=== PATIENT | male | born 1950 | race Caucasian/White ===

== ENCOUNTER 2019-08-20 08:38 | Outpatient (CLI) | payer MEDICARE, SELFPAY ==
--- NOTE | 2019-08-26 11:03 | SLEEP_ITS ---
Home sleep test. DATE OF STUDY: 08/20/2019 REASON FOR THE STUDY: Hypersomnia, nighttime shortness of breath. HISTORY: This patient is 68-year-old male, 5 feet 11 inches tall, weighing 200 pounds with a body mass index of 27.9. He has a history of shortness of breath with COPD. He also has snoring and occasionally it is loud enough that others complain about it. He rarely awakens from sleep short of breath, rarely awakens with heartburn or belching. He occasionally has trouble sleeping if he has a cold. He does not gasp often for breath at night. He occasionally has breathing problems witnessed by others. He does not sweat excessively at night. He occasionally notices his heart pounding or beating irregularly at night. He frequently falls asleep during the day, never involuntarily and never while driving. He does not have loss of muscle tone with strong emotion and does not feel paralyzed on waking or falling asleep. He does not have vivid dreamlike scenes upon awakening or falling asleep. He is never afraid to go to sleep. He occasionally has nightmares, frequently remembers his dreams. He occasionally has racing thoughts, sadness, depression and anxiety. He never has muscular tension or notices parts of his body jerking. He frequently kicks at night. He does not have crawly achy feelings in the legs or leg pain at night. He does not have morning jaw pain and does not grind his teeth. He frequently is bothered by pain during the day, occasionally is awakened by pain at night, never wakes up feeling stiff in the morning. He occasionally wakes up with sore achy muscles, constantly wakes up with pain in the neck and spine. He has memory problems, insomnia, concentration difficulties, bowel disturbances, problems with alcohol and he has chronic headaches. Bedtime is 10:30 p.m., taking 5 to 10 minutes to fall asleep, waking 3 times at night on average for 3 minutes to go urinate. He wakes in the morning at 6:30 a.m. Weekend schedule is the same. He does take naps. A short nap may be refreshing. He is drowsy in the morning for half an hour. He feels better in the morning compared to other times of day. MEDICAL COMORBIDITIES: Hyperlipidemia, hip replacement, hypertension, hepatitis C, cardiac stents. MEDICATIONS: 1. Anoro Ellipta 62.5/25 one puff daily. 2. Aspirin 81 mg a day. 3. Atorvastatin 20 mg a day. 4. Metoprolol succinate 25 mg daily. 5. Nitroglycerin 0.4 mg sublingual p.r.n. chest pain. HABITS: Never smoked tobacco. Caffeine, 3 cups a day. Alcohol, 2-3 per day. No recreational drugs. DESCRIPTION OF THE STUDY: On the [place] Sleepiness Scale, his score is 6. This was conducted as an unattended type 3 portable home sleep test using 4-channel monitoring including respiratory effort channel, snoring channel, oxygen saturation channel, and heart rate channel. Duration of the study was 8 hours 15 minutes. This study was scored using [facility] guidelines. The apnea-hypopnea index is 18. Oxygen desaturation index is 15.2. Lowest desaturation is 79%. The mean saturation is 92%. The patient had 57 apneas. The majority of the apneas, 72% or 41 apneas were obstructive, 28% or 16 were central. He had 88 hypopneas, 466 snoring events, and 126 desaturations with 14 minutes spent below 3% saturation. The patient had a heart rate between 45 and 91. He had 3% of his study suggesting central sleep episodes. IMPRESSION: 1. This home sleep test shows evidence of at least moderate sleep-disordered breathing with 3% of the study showing Armand-Rizzo respirations. The patient has a history of cardiac stents. We need to check his echocardiogram to assure that his EF is greater than 45% in the event that he is titrated with CPAP and needs to proceed to BiPAP or
== END 2019-08-20 08:39 | disposition home or self-care (01) ==
LOC: ANHCSM 08:39
PROVIDERS: PCP Family Medicine; Visit Provider Internal Medicine Critical Care Medicine
DX: G47.10 Hypersomnia, unspecified (principal)
CPT/HCPCS: 95806

== ENCOUNTER 2020-03-23 01:34 | Outpatient (CLI) | payer MEDICARE, SELFPAY ==
[2020-03-23 17:42] LABS: SARS-CoV-2 RNA PCR Negative
== END 2020-03-23 01:35 | disposition home or self-care (01) ==
LOC: ANHCOVIDDT 01:34
PROVIDERS: PCP Family Medicine; Visit Provider Specialist
DX: Z01.812 Encounter for preprocedural laboratory examination (principal); Z20.828 Contact with and (suspected) exposure to other viral communicable diseases
CPT/HCPCS: 87635; C9803; U0003

== ENCOUNTER 2020-03-25 02:14 | Day surgery (SDC) | payer MEDICARE, SELFPAY ==
[2020-03-24 14:29] VITALS: BMI 27.0
[2020-03-25] VITALS (8 sets, daily range): BP systolic 127–157; BP diastolic 61–92; PULSE 44–70; RESP 14–18; TEMP 36.6–36.8; O2SAT 99–100
[2020-03-25 09:07] LABS: Basophils Percent Auto 0.6 % (0.2-1.2); Eosinophils Absolute Auto 0.3 K/mm3 (0-0.3); Eosinophils Percent Auto 4.3 % (0-4.4); Hematocrit 50.1 % (42.0-52.0); Hemoglobin 16.8 g/dL (14.0-18.0); Immature Granulocyte Absolute 0.01 K/mm3 (0.00-0.031); Immature Granulocyte Percent A 0.1 % (0-0.5); Lymphocytes Absolute Auto 1.66 K/mm3 (0.9-3.2); Lymphocytes Percent Auto 24.6 % (18.3-44.2); Mean Corpuscular HGB Conc 33.5 g/dl (32-36); Mean Corpuscular Hemoglobin 30.3 pg (26-34); Mean Corpuscular Volume 90.4 fl (80-100); Mean Platelet Volume 8.9 fl (7.4-10.4); Monocytes Absolute Auto 0.6 K/mm3 (0.1-0.6); Monocytes Percent Auto 8.3 % (2.6-8.5); Neutrophils Absolute Auto 4.2 K/mm3 (1.3-6.7); Neutrophils Percent Auto 62.1 % (45.5-73.1); Nucleated Red Blood Cells Perc 0.4 % (0.0-0.2); Platelet Count Result 230 k/mm3 (150-375); Red Blood Count 5.54 M/mm3 (4.6-6.20); Red Cell Distribution Width 12.4 % (11.5-14.5); White Blood Count 6.7 K/mm3 (4.5-10.0)
[2020-03-25 09:17] LABS: Prothrombin Time 12.4 Seconds (11.1-14.7)
[2020-03-25 09:18] LABS: Anion Gap 8 mmol/L (8-16); Blood Urea Nitrogen 16 mg/dL (9-20); Calcium 9.6 mg/dL (8.4-10.2); Carbon Dioxide 33 mmol/L (22-30); Chloride 99 mmol/L (98-107); Estimated CRCL calculation 70 ml/min; Estimated Glomerular Filt Rate > 60; Glucose 108 mg/dL (75-110); Potassium 4.5 mmol/L (3.4-5.0); Sodium 140 mmol/L (137-145)
--- NOTE | 2020-03-25 09:27 | WPDMODSED ---
Moderate Sedation Note-Pt Data Patient Data Diagnosis: coronary artery disease with previous IN and PCI symptoms compatible with recurrent exertional angina Present Complaint: exertional dyspnea and chest pain Procedure to be performed/Plan: follow-up left heart catheterization Allergies Allergy/AdvReac Type Severity Reaction Status Date / Time No Known Drug Allergies Allergy Unknown Unknown Verified 03/24/20 14:26 Home Medications Medication Instructions Recorded Confirmed Type aspirin 81 mg tablet,delayed 81 mg PO DAILY 06/06/19 03/24/20 History release atorvastatin 20 mg tablet 20 mg PO DAILY 06/06/19 03/24/20 History cephalexin 500 mg capsule 500 mg PO Q12H 06/06/19 03/24/20 History metoprolol succinate 25 mg 25 mg PO DAILY 06/06/19 03/24/20 History tablet,extended release 24 hr nitroglycerin 0.4 mg sublingual 0.4 mg SUBLINGUAL Q5M PRN 06/06/19 03/24/20 History tablet multivitamin,tx-minerals 1 tablet PO DAILY 09/13/19 03/24/20 History Current Medications: Active Medications Sodium Chloride (Normal Saline Iv) 500 mls @ 100 mls/hr IV CONT .Q5H ANJANA Sedation/Anesthesia: No previous sedation/anesthesia problems (including family history). [facility] Past Medical History Medical History (Updated 09/13/19 @ 14:49 by Savannah Mcdonald MD) Bronchitis CAD (coronary artery disease) Cervical radiculopathy Chest discomfort COPD (chronic obstructive pulmonary disease) Hyperlipidemia Hypertension Myelopathy concurrent with and due to spinal stenosis of cervical region Surgical History Surgical History History of coronary artery stent placement Status post total hip replacement, bilateral Family History Family History Father Family history of malignant neoplasm Mother Family history of malignant neoplasm of brain Sibling Family history of throat cancer Social History Social History Social History: Heavy marijuana & cocaine smoking, none x last 12 year. Cigars, 0-1 usually, rarely 2 cigars/day. Never smoked cigarettes. cigars x 30+ years Smoking status: Current some day smoker Tobacco type: cigars Second hand tobacco smoke exposure: Yes Alcohol intake: current Substance use: never Substance use type: former substance user Living arrangements: with family Gender identity (if verbalized by the patient): Male Mod Sed Physical Exam Physical Exam Pre Procedural Exam: Normal: Appearance, Neck, Throat, Airway, Heart Size, Heart Rate, Heart Rhythm, Neuro Exam and Extremities and Variation: Lungs ( breath sounds clear but diminished in both lung louis) Hours since solid foods: 12 Hours since liquid intake: 12 Internal Medicine - PN: Obj Da Meds/Results Medications: Active Medications Generic Name Dose Route Start Last Admin Trade Name Freq PRN Reason Stop Dose Admin Sodium Chloride 500 mls @ 100 mls/hr 03/25/20 05:55 Normal Saline Iv IV CONT .Q5H ANJANA Labs CBC & Chem 7: 03/25/20 09:00 03/25/20 09:00 Labs: Laboratory Results - last 24 hr 03/25/20 03/25/20 03/25/20 09:00 09:00 09:00 WBC 6.7 RBC 5.54 Hgb 16.8 Hct 50.1 MCV 90.4 MCH 30.3 MCHC 33.5 RDW 12.4 Plt Count 230 MPV 8.9 Immature Gran % (Auto) 0.1 Neut % (Auto) 62.1 Lymph % (Auto) 24.6 Sutter % (Auto) 8.3 Eos % (Auto) 4.3 Baso % (Auto) 0.6 Lymph # (Auto) 1.66 Sutter # (Auto) 0.6 Eos # (Auto) 0.3 Baso # (Auto) 0.0 Abs Immat Gran (auto) 0.01 Absolute Neuts (auto) 4.2 Absolute Nucleated RBC 0.0 Nucleated RBC % 0.4 H PT 12.4 INR 1.0 Sodium 140 Potassium 4.5 Chloride 99 Carbon Dioxide 33 H Anion Gap 8 BUN 16 Creatinine 0.90 Estim Creat Clear Calc 70 Estimated GFR > 60 Glucose 108 Calci
--- NOTE | 2020-03-25 10:39 | WPDCARDPROC ---
Cardiac Cath Procedure Note Date of procedure:: 03/25/20 Performing physician:: Lucas Gutierres MD Indication:: symptoms of chest pain with both typical and atypical features of angina previous PCI to the proximal LAD and distal RCA abnormal nuclear stress test Brief clinical history:: this is a 69-year-old man who underwent interventional revascularization of his proximal LAD in the remote past as well as in the distal RCA. He has been doing well in recent years but now is reporting symptoms of increasing frequency of chest pain but the features of the pain are somewhat atypical of angina. A nuclear stress test demonstrated a largely fixed inferior defect as well as a reversible defect at the base of the anterior wall. Procedure Procedure performed:: Left heart catheterization with left ventriculography, coronary angiography Angio-Seal to right femoral artery Sedation/Medication given:: fentanyl 50 mg Versed 2 mg case start time 10:16 a.m. case end time 10:34 a.m. sedation provided by Camila Wan RN, trained observer Access site:: right femoral artery Estimated blood loss:: 10-15 cc Procedure note:: patient was brought to the cardiac catheterization lab in the postabsorptive state triangle prepped and draped in the usual fashion. Anesthesia was provided with 1% lidocaine infiltrated locally. Using the modified Seldinger technique the right common femoral artery was punctured and a 5 [place]i vascular sheath was placed. After this left heart catheterization carried out a 5 [place]i angled pigtail catheter was used to document left-sided hemodynamics and inject the g in the AO projection. After this I engaged injected left coronary artery using a standard 5 [place]i FL4 catheter. The right coronary was engaged and injected using a standard 5 [place] JR4 catheter. The cine angiograms were then and the case was terminated. An angiogram was done of the femoral artery through the sheath after which a 6 [place] Angio-Seal device was deployed at the puncture site with a good hemostatic result. The procedure was well tolerated he left the rn cardiac cath with no evidence of a groin hematoma and no evident complications. Findings:: Hemodynamics: Central aortic pressure is 128/49 left ventricle 128/0 end diastolic pressure of 8. There is no systolic gradient on pullback across the aortic valve. The left ventricle is normal in size all segments contract appropriately the global ejection fraction is 50-55% with no regional wall motion abnormalities. The left main coronary artery is nicely patent the LAD is medium caliber artery extending down to around the apex. There is visible stent material in the ostial/proximal segment of the LAD which is nicely patent with no loss of lumen. There is a tortuous segment in the mid LAD where there is a atherosclerotic plaque of about 50-60% stenosis. Angiographically this appears to be identical to which appears to be in 2016. Distal to this the remainder of the LAD is free of significant lesions. The circumflex is a very small caliber artery in this patient angiographically without significant disease there is mild luminal irregularity in the circumflex but it is once again extremely small vessel. The right coronary artery is moderate caliber and dominant to the posterior circulation. The mid RCA and distal RCA are mildly tortuous. After the tortuosity there is a stent the obviously visible in the 3rd portion of the right coronary which remains widely patent with no restenosis or loss of lumen. The RPDA and RPL branches are free of significant stenosis. Conclusion:: 1. Coronary artery disease with right coronary dominant circulation 2. previously deployed stents in the proximal/ostial segment of the LAD and in the 3rd portion of the RCA remains nicely patent 3. moderate lesion in the mid LAD does not appear to be flow-limiting and angiographically is unchanged in its appearance comp
--- NOTE | 2020-03-25 13:38 | SUR.PHASEII ---
Pt. and spouse given post-procedure discharge education. Pt. and spouse verbalize understanding of discharge education. R Angioseal site noted to be free of signs of bleeding and hematoma upon discharge. Pt. escorted to private vehicle via wheelchair.
== END 2020-03-25 13:47 | disposition home or self-care (01) ==
PROVIDERS: PCP Family Medicine; Visit Provider Specialist
PROC: 4A023N7 Measurement of Cardiac Sampling and Pressure, Left Heart, Percutaneous Approach (ICD-10-PCS; CPT 93452; principal; 2020-03-25 10:00)
DX: I25.10 Atherosclerotic heart disease of native coronary artery without angina pectoris (principal); R94.39 Abnormal result of other cardiovascular function study; R07.9 Chest pain, unspecified; Z95.5 Presence of coronary angioplasty implant and graft; I10 Essential (primary) hypertension; E78.5 Hyperlipidemia, unspecified; J44.9 Chronic obstructive pulmonary disease, unspecified; M48.02 Spinal stenosis, cervical region; G99.2 Myelopathy in diseases classified elsewhere; Z79.82 Long term (current) use of aspirin; F17.290 Nicotine dependence, other tobacco product, uncomplicated
CPT/HCPCS: 36415; 80048; 85025; 85610; 93458; C1887; C1894; G0269; J1644; J2250; J3010; J7040

== ENCOUNTER 2020-08-31 10:08 | Outpatient (CLI) | payer MEDICARE, SELFPAY ==
--- NOTE | ~2020-08-31 | CT_ITS ---
EXAMINATION: CT lung screening DATE: 08/31/2020 10:24 INDICATION: Personal history of nicotine dependence TECHNIQUE: Computed tomography (CT) of the chest was performed without intravenous contrast. The dose -length product was 112.41 mGy-cm. Automated exposure control and iterative reconstruction technique were employed. COMPARISON: CT dated 06/18/2019 and 01/01/2014 FINDINGS: Mild atherosclerosis. No thoracic lymphadenopathy. Heart size normal. No significant pleura l or pericardial effusion. The upper abdomen is unremarkable. Calcified granuloma left upper lobe. 4 mm left upper lobe nodule, image 72, unchanged. 3 mm right upper lobe nodule, unchanged. Additional s maller nodules are present in the upper lobes. Calcified granuloma right lower lobe. Mild emphysema. No pneumothorax. Mild thoracic spondylosis. IMPRESSION: 1. Lung-RADS category 2: Benign appearance or behavior. Continue annual screening with noncontrast lo w-dose chest CT in 12 months. Reviewed, dictated and finalized at location B. IMPRESSION: 1. Lung-RADS category 2: Benign appearance or behavior. Continue annual screeni ng with noncontrast low-dose chest CT in 12 months.
== END 2020-08-31 10:09 | disposition home or self-care (01) ==
PROVIDERS: PCP Physician Assistant; Visit Provider Nurse Practitioner Family
DX: Z12.2 Encounter for screening for malignant neoplasm of respiratory organs (principal); Z87.891 Personal history of nicotine dependence
CPT/HCPCS: 71271

== ENCOUNTER → 2020-09-01 00:38 | Outpatient (CLI) | payer MEDICARE, SELFPAY ==
[2020-09-01 18:31] LABS: SARS-CoV-2 RNA PCR Negative
== END ==
PROVIDERS: PCP Physician Assistant; Visit Provider Internal Medicine Critical Care Medicine
DX: Z01.812 Encounter for preprocedural laboratory examination (principal); Z20.822 Contact with and (suspected) exposure to COVID-19
CPT/HCPCS: C9803; U0003; U0005

== ENCOUNTER 2020-09-03 06:57 | Outpatient (CLI) | payer MEDICARE, SELFPAY ==
--- NOTE | 2020-09-14 15:01 | WPDSLEEPSTUD ---
Sleep Study Date of Study: 09/03/20 Ordering Provider: Gustavo Castellanos APRN Interpreting Physician: Jaki Bourgeois MD Sleep Study Type: CPAP Titration Height: 1.8 m Weight: 87.997 kg Body Mass Index: 27.0 Neck Circumference (inches): 16 [place]: 3 Reason for Sleep Study 08/20/2019 home sleep test with obstructive sleep apnea; AHI 18, 3% Armand-Rizzo epochs, 79% lowest saturation, 72% obstructive apneas, 28% central apneas so 16 of 57 apneas, = 5.04 central index on HST baseline. This is consistent with obstructive and central sleep apnea. Sleep History Cristi Rasmussen Sr is 69-year-old male with shortness of breath and COPD. He also has snoring and occasionally it is loud enough that others complain about it. He rarely awakens from sleep short of breath, rarely awakens with heartburn or belching. He occasionally has trouble sleeping if he has a cold. He does not gasp often for breath at night. He occasionally has breathing problems witnessed by others. He does not sweat excessively at night. He occasionally notices his heart pounding or beating irregularly at night. He frequently falls asleep during the day, never involuntarily and never while driving. He does not have loss of muscle tone with strong emotion and does not feel paralyzed on waking or falling asleep. He does not have vivid dreamlike scenes upon awakening or falling asleep. He is never afraid to go to sleep. He occasionally has nightmares, frequently remembers his dreams. He occasionally has racing thoughts, sadness, depression and anxiety. He never has muscular tension or notices parts of his body jerking. He frequently kicks at night. He does not have crawly achy feelings in the legs or leg pain at night. He does not have morning jaw pain and does not grind his teeth. He frequently is bothered by pain during the day, occasionally is awakened by pain at night, never wakes up feeling stiff in the morning. He occasionally wakes up with sore achy muscles, constantly wakes up with pain in the neck and spine. He has memory problems, insomnia, concentration difficulties, bowel disturbances, problems with alcohol and he has chronic headaches. Bedtime is 10:30 p.m., taking 5 to 10 minutes to fall asleep, waking 3 times at night on average for 3 minutes to go urinate. He wakes in the morning at 6:30 a.m. Weekend schedule is the same. He does take naps. A short nap may be refreshing. He is drowsy in the morning for half an hour. He feels better in the morning compared to other times of day. Habits: Never smoked tobacco. Caffeine, 3 cups a day. Alcohol, 2-3 per day. No recreational drugs. [facility] Past Medical History Medical History Bronchitis CAD (coronary artery disease) Cervical radiculopathy Chest discomfort COPD (chronic obstructive pulmonary disease) Hyperlipidemia Hypertension Myelopathy concurrent with and due to spinal stenosis of cervical region Tobacco abuse Surgical History Surgical History History of coronary artery stent placement Status post total hip replacement, bilateral Family History Family History Father Family history of malignant neoplasm Mother Family history of malignant neoplasm of brain Sibling Family history of throat cancer Social History Social History Social History: Heavy marijuana & cocaine smoking, none x last 13 year. Cigars, 0-1 usually, rarely 2 cigars/day. Never smoked cigarettes. cigars x 30+ years Smoking status: Former smoker Tobacco type: cigars Second hand tobacco smoke exposure: Yes Alcohol intake: current Substance use: never Substance use type: former substance user Gender identity (if verbalized by the patient): Male Spiritual care concerns: No Agree to blood produ
[2020-09-21 12:59] VITALS: BMI 27.0
== END 2020-09-03 06:58 | disposition home or self-care (01) ==
LOC: ANHCSM 06:57
PROVIDERS: PCP Physician Assistant; Visit Provider Nurse Practitioner Family
DX: G47.33 Obstructive sleep apnea (adult) (pediatric) (principal)
CPT/HCPCS: 95811

== ENCOUNTER 2021-02-11 07:58 | Outpatient (CLI) | payer MEDICARE, SELFPAY ==
--- NOTE | ~2021-02-11 | CT_ITS ---
EXAMINATION: CT abdomen pelvis wo/w con EXAM DATE: 02/11/2021 08:50 INDICATION: Gross hematuria. Dysuria, bilateral flank pain, pelvic pain. TECHNIQUE: Spiral CT of the abdomen and pelvis was performed without contrast. The patient was then injected with small bolus intravenous Omnipaque 350, followed by delay of approximately 10 minutes to allow collecting system to opacify. A post contrast scan abdomen and pelvis was performed during inj ection of remaining contrast. A total of 130 cc intravenous contrast was administered. The dose-kodak th product (DLP) for this examination was 402.26 mGy-cm. The exposure was tailored according to melchor ent size (auto mA exposure control), and iterative reconstruction (ASIR) was used as additional dose reduction technique. Comparison is made to prior examination from 05/16/2018. FINDINGS: There is approximately 4 cm segment of the right ureter proximally which has irregularity i n the column of contrast, but no shouldering. Possible 3 mm intraluminal filling defect along the wal l on image 98. Recommend retrograde pyelogram. Some limitations of lower aspect of bladder due to willow ateral hip replacements causing artifact. There is no hydronephrosis or nephrolithiasis. There is a 4 cm cyst right kidney midpole anterior cortex. The kidneys enhance symmetrically. There are no jazmyn picious renal lesions. The bladder is unremarkable. The prostate is unremarkable. The liver, spleen, adrenal glands and pancreas are unremarkable. Gallbladder is unremarkable. No bi liary obstruction. There is no retroperitoneal or pelvic lymphadenopathy. Bilateral inguinal herni a repairs. The appendix is normal. The stomach and small bowel are unremarkable. There is expected amount of c olonic stool. No free intraperitoneal gas. The heart is normal in size. There are no pericardial or pleural effusions. The lung bases are unremarkable. There is left iliac bone island unchanged. Hip replacements. IMPRESSION: 1. Some irregularity to the right ureter proximally, could be phasic but recommend retrograde pyelog ana maría for possible transitional cell cancer. Reviewed, dictated and finalized at location A. IMPRESSION: 1. Some irregularity to the right ureter proximally, could be phasic but recom mend retrograde pyelogram for possible transitional cell cancer.
[2021-02-11 08:26] LABS: Estimated Glomerular Filt Rate > 60
== END 2021-02-11 07:59 | disposition home or self-care (01) ==
PROVIDERS: PCP Physician Assistant
DX: R31.0 Gross hematuria (principal)
CPT/HCPCS: 74178; Q9967

== ENCOUNTER 2021-05-20 08:19 | Outpatient (CLI) | payer MEDICARE, SELFPAY ==
[2021-05-20 09:39] LABS: Alanine Aminotransferase 15 U/L (4-50); Albumin Level 4.5 g/dL (3.5-5.1); Alkaline Phosphatase 92 U/L (38-126); Anion Gap 5 mmol/L (8-16); Aspartate Amino Transferase 22 U/L (17-59); Bilirubin,Total 0.7 mg/dL (0.2-1.3); Blood Urea Nitrogen 14 mg/dL (9-20); Calcium 9.1 mg/dL (8.4-10.2); Carbon Dioxide 30 mmol/L (22-30); Chloride 102 mmol/L (98-107); Cholesterol 119 mg/dL (0-200); Estimated Glomerular Filt Rate > 60; Glucose 115 mg/dL (65-110); HDL Direct 45 mg/dL; Potassium 4.1 mmol/L (3.4-5.0); Sodium 137 mmol/L (137-145); Triglycerides 76 mg/dL (<150)
[2021-05-20 09:50] LABS: LDL Cholesterol Direct 50 mg/dL
[2021-05-20 10:09] LABS: Prostate Specific Antigen 1.9 ng/mL (< OR = 4.0)
== END 2021-05-20 08:20 | disposition home or self-care (01) ==
PROVIDERS: PCP Family Medicine; Visit Provider Physician Assistant
DX: E78.5 Hyperlipidemia, unspecified (principal); I10 Essential (primary) hypertension; Z12.5 Encounter for screening for malignant neoplasm of prostate
CPT/HCPCS: 36415; 80053; 80061; 84153; G0103

== ENCOUNTER → 2021-07-06 09:39 | Outpatient (CLI) | payer MEDICARE, SELFPAY ==
[2021-07-06 19:06] LABS: SARS-CoV-2 RNA PCR Positive
== END ==
PROVIDERS: PCP Family Medicine; Visit Provider Physician Assistant
DX: U07.1 COVID-19 (principal)
CPT/HCPCS: C9803; U0003; U0005

== ENCOUNTER → 2021-09-06 12:04 | Outpatient (CLI) | payer MEDICARE, SELFPAY ==
--- NOTE | ~2021-09-06 | CT_ITS ---
EXAMINATION: CT lung screening EXAM DATE: 09/06/2021 12:23 INDICATION: Z87.891 - Personal history of nicotine dependence. TECHNIQUE: Spiral low dose CT of the chest without contrast. Axial, coronal and sagittal images were reviewed. The dose-length product (DLP) for this examination was 98.16 mGy-cm. The exposure was ta ilored according to patient size (auto mA exposure control), and iterative reconstruction (ASIR) was used as additional dose reduction technique. Comparison is made to prior examination from 08/31/2020. FINDINGS: Several calcified granulomas Tracheobronchial tree is patent. There is no mediastinal, hilar or axillary lymphadenopathy. There are no pleural or pericardial effusions. There is no pne umothorax. Heart normal in size. There is moderate coronary arterial calcification, arterial scle rosis. There is mild to moderate emphysema and hyperinflation. Upper abdomen is unremarkable. There is thoracic spondylosis without osteoblastic or osteolytic lesions identified. IMPRESSION: Lung-RADS category 1, negative (<1%chance of malignancy); recommend continued LDCT screen ing in 1 year. Reviewed, dictated and finalized at location A. IMPRESSION: Lung-RADS category 1, negative (<1%chance of malignancy); recommend continued LDCT screening in 1 year.
== END ==
PROVIDERS: PCP Physician Assistant; Visit Provider Physician Assistant
DX: Z87.891 Personal history of nicotine dependence (principal)
CPT/HCPCS: 71271

== ENCOUNTER 2021-09-28 01:28 | Day surgery (SDC) | payer MEDICARE, SELFPAY ==
[2021-09-15 13:38] VITALS: BMI 27.3
[2021-09-28 10:05] VITALS: BP 133/86; PULSE 70; RESP 18; TEMP 36.1; O2SAT 99; BMI 26.9
[2021-09-28] MEDS: LACTATED RINGERS 1,000 ML 150 ML IV CONT (10:15)
--- NOTE | 2021-09-28 10:22 | WPDHPUPDATE1 ---
History and Physical Update Update Date/Time: 09/28/21 10:22 History and Physical has been reviewed, including an updated exam of the patient. There are NO changes in the patient's condition. Risks, benefits, and alternatives have been discussed and questions answered. Patient agrees to proceed with procedure.
--- NOTE | 2021-09-28 11:03 | WPDANESEPPF ---
Anes - Initial Pre Proc Eval Procedure: Operation Date: 09/28/21 11:00 Proposed Procedures p Colonoscopy - Ronald Gutierrez MD Date/Time: 09/28/21 11:03 Surgeon: Ronald Gutierrez MD Pre Op Diagnosis: Abdominal pain, change in bowel habits Patient Data Age: 70 Gender: M Height: 1.8 m Weight: 87.7 kg Last Vital Signs Temp 97 F L 09/28/21 10:05 Pulse 70 09/28/21 10:05 Resp 18 09/28/21 10:05 BP 133/86 09/28/21 10:05 Pulse Ox 99 09/28/21 10:05 Allergies Allergy/AdvReac Type Severity Reaction Status Date / Time No Known Drug Allergies Allergy Unknown Unknown Verified 09/28/21 09:42 Home Medications Medication Instructions Recorded Confirmed Type aspirin 81 mg tablet,delayed 81 mg PO DAILY 06/06/19 09/15/21 History release atorvastatin 20 mg tablet 20 mg PO DAILY 06/06/19 09/15/21 History cephalexin 500 mg capsule 500 mg PO Q12H 06/06/19 09/15/21 History metoprolol succinate 25 mg 25 mg PO DAILY 06/06/19 09/15/21 History tablet,extended release 24 hr nitroglycerin 0.4 mg sublingual 0.4 mg SUBLINGUAL Q5M PRN 06/06/19 09/15/21 History tablet multivitamin,tx-minerals 1 tablet PO DAILY 09/13/19 09/15/21 History isosorbide mononitrate 30 mg PO QAM #30 tablet 03/25/20 09/15/21 Rx linaclotide 290 mcg capsule 290 mcg PO DAILY #30 cap 06/10/21 09/15/21 Rx finasteride 5 mg tablet 5 mg PO DAILY 09/01/21 09/15/21 History Patient hx anesthesia problems: none Family hx anesthesia problems: none Results Review: All pre-operative results and documents have been reviewed as part of the pre-operative evaluation. [facility] Past Medical History Medical History Bronchitis CAD (coronary artery disease) Cervical radiculopathy Chest discomfort COPD (chronic obstructive pulmonary disease) Hyperlipidemia Hypertension Myelopathy concurrent with and due to spinal stenosis of cervical region Tobacco abuse Surgical History Surgical History History of coronary artery stent placement Status post total hip replacement, bilateral Family History Family History Father Family history of malignant neoplasm Mother Family history of malignant neoplasm of brain Sibling Family history of throat cancer Social History Social History Social History: Heavy marijuana & cocaine smoking, none x last 13 year. Cigars, 0-1 usually, rarely 2 cigars/day. Never smoked cigarettes. cigars x 30+ years Smoking status: Current some day smoker Tobacco type: cigars Second hand tobacco smoke exposure: Yes Alcohol intake: current Drinks per week: 12 Alcohol use details: 8 pack of beer weekly. Substance use: never Substance use type: former substance user and marijuana Living arrangements: with family Gender identity (if verbalized by the patient): Male Sexual Orientation (if Verbalized by the Patient): Straight or Heterosexual Spiritual care concerns: No Agree to blood products: Yes Anes - Eval Final PreProcedure Day of Procedure 09/28/21 11:03 Patient weight: normal Heart: regular rate and rhythm Lungs: clear to auscultation Airway: Mallampati scale class II Neurological: alert and oriented Last oral intake: >/= 8 hours ASA classification: III Emergent: no Anesthetic plan: proceed Anesthesia type and monitoring: general GIVS and standard monitoring Results Review: All pre-operative results and documents have been reviewed as part of the pre-operative evaluation. Informed Consent: The patient's anesthetic plan and its attendant risks and benefits were discussed with the patient/family/POA. Questions were solicited and answers provided to the satisfaction of the patient/family/POA.
[2021-09-28 11:41] VITALS: BP 101/69; PULSE 63; RESP 16; O2SAT 95
[2021-09-28 11:51] VITALS: BP 115/70; PULSE 51; RESP 15; O2SAT 99
[2021-09-28 12:01] VITALS: BP 119/78; PULSE 58; RESP 21; O2SAT 100
== END 2021-09-28 12:13 | disposition home or self-care (01) ==
PROVIDERS: PCP Physician Assistant; Visit Provider Internal Medicine Gastroenterology
PROC: 0DJD8ZZ Inspection of Lower Intestinal Tract, Via Natural or Artificial Opening Endoscopic (ICD-10-PCS; CPT 45378; principal; 2021-09-28 11:00)
DX: R10.84 Generalized abdominal pain (principal); R19.4 Change in bowel habit; I10 Essential (primary) hypertension; E78.5 Hyperlipidemia, unspecified; I25.10 Atherosclerotic heart disease of native coronary artery without angina pectoris; J44.9 Chronic obstructive pulmonary disease, unspecified; M48.02 Spinal stenosis, cervical region; M54.12 Radiculopathy, cervical region; G99.2 Myelopathy in diseases classified elsewhere; Z79.82 Long term (current) use of aspirin; Z95.5 Presence of coronary angioplasty implant and graft; Z72.0 Tobacco use
CPT/HCPCS: 45378; J2704; J7120

== ENCOUNTER → 2022-04-20 08:44 | Outpatient (CLI) | payer MEDICARE, SELFPAY ==
--- NOTE | ~2022-04-20 | CT_ITS ---
EXAMINATION: CT soft tissue neck w con DATE: 04/20/2022 09:12 INDICATION: Neck discomfort and fullness. Dysphagia. TECHNIQUE: Computed tomography (CT) of the neck was performed with 75 mL Omnipaque-350 intravenous co ntrast. Automated exposure control and iterative reconstruction technique were employed. The dose-dhaval gth product was 412.92 mGy-cm. COMPARISON: None FINDINGS: There is mild scarring at the lung apices. There are likely changes of ocular lens replacem ent surgeries. There are no pathologically enlarged lymph nodes. The pharynx and larynx are normal. T here is mild plaque in the proximal internal coronary arteries with less than 50% stenosis relative t o normal distal artery lumen diameters. There is severe cervical spondylosis. IMPRESSION: 1. No etiology for the patient's symptoms. Reviewed, dictated and finalized at location A. [facility]
[2022-04-20 08:59] LABS: Estimated Glomerular Filt Rate > 60
== END ==
PROVIDERS: PCP Physician Assistant; Visit Provider Physician Assistant
DX: M54.2 Cervicalgia (principal)
CPT/HCPCS: 70491; Q9967

== ENCOUNTER 2022-09-05 07:24 | Outpatient (CLI) | payer MEDICARE, SELFPAY ==
--- NOTE | 2022-09-05 | ECHO_ITS ---
Patient Info Name: Cristi Rasmussen Age: 71 years : 1950 Gender: Male Ht: 72 in Wt: 195 lbs BSA: 2.13 m2 HR: 83 bpm BP: 152 / 81 mmHg Heart Rhythm: Atrial Fibrillation Technical Quality: Fair Exam Date: 09/05/2022 7:54 AM Exam Location: [facility] Patient Status: Outpatient Admit Date: 09/05/2022 Staff Ordering Physician: Margot, Melly Jessica PHOTOGRAPHIC PRINTER Balling Machine Operator: Taty Luis RDCS Attending Provider: Margot, Melly Jessica NP Referring Physician: Margot HARRIS; Exam Type: CA echo doppler color flow Study Info Indications I48.91 - ATRIAL FIBRILLATION, UNSPECIFIED TYPE Complete two-dimensional, color flow and Doppler transthoracic echocardiogram is performed. Summary 1. Complete two-dimensional, color flow and Doppler transthoracic echocardiogram is performed. 2. Left ventricular chamber dimension is normal. 3. Left ventricular systolic function is normal, estimated at 55-60%. 4. There is mildly increased left ventricular wall thickness. 5. Right ventricular chamber dimension is mildly enlarged. 6. Right ventricular systolic function is normal. 7. The aortic valve is not well visualized. 8. There is mild aortic valve sclerosis. 9. The mitral valve has thickened leaflets. 10. The mitral valve annulus is mildly calcified. 11. There is mild mitral valve regurgitation. 12. There is mild tricuspid valve regurgitation. 13. There is small anterior pericardial effusion. Left Ventricle Left ventricular chamber dimension is normal. Left ventricular systolic function is normal, estimated at 55-60%. There is mildly increased left ventricular wall thickness. Right Ventricle Right ventricular chamber dimension is mildly enlarged. Right ventricular systolic function is normal. Left Atria Left atrial chamber dimension is normal. Right Atria Right atrial chamber dimension is normal. Atrial Septum Intact interatrial septum visualized by color flow imaging. Aortic Valve The aortic valve is not well visualized. There is mild aortic valve sclerosis. There is no aortic valve stenosis. There is no aortic valve regurgitation. Pulmonic Valve The pulmonic valve is not well visualized. Mitral Valve The mitral valve has thickened leaflets. There is mild mitral valve regurgitation. The mitral valve annulus is mildly calcified. Tricuspid Valve There is mild tricuspid valve regurgitation. Pericardium/Pleural There is small anterior pericardial effusion. Inferior Vena Cava Normal inferior vena cava with >50% collapse upon inspiration consistent with normal right atrial pressure, 3 mmHg. Aorta The aortic root size at the sinus of Valsalva is normal. Left Ventricular Outflow Tract Name Value Normal LVOT 2D LVOT Diameter 2.0 cm LVOT Doppler LVOT Peak Gradient 4 mmHg LVOT Mean Gradient 2 mmHg LVOT VTI 21 cm LVOT VTI/AV VTI Ratio 1.1 LVOT Stroke Volume 68 ml LVOT CO 5.9 l/min LV
== END 2022-09-05 07:25 | disposition home or self-care (01) ==
LOC: ANHCARD 07:25
PROVIDERS: PCP Physician Assistant; Visit Provider Nurse Practitioner Adult Health
DX: I48.91 Unspecified atrial fibrillation (principal); I08.3 Combined rheumatic disorders of mitral, aortic and tricuspid valves; I31.39 Other pericardial effusion (noninflammatory)
CPT/HCPCS: 93306

== ENCOUNTER 2022-09-07 09:19 | Outpatient (CLI) | payer MEDICARE, SELFPAY ==
--- NOTE | ~2022-09-07 | CT_ITS ---
EXAMINATION: CT lung screening DATE: 09/07/2022 09:34 INDICATION: Personal history of nicotine dependence, prior smoker with 30 pack year history TECHNIQUE: Computed tomography (CT) of the chest was performed without intravenous contrast. The dose -length product (DLP) was 110.21 mGy-cm. Automated exposure control and iterative reconstruction tech [employer] were employed. COMPARISON: 09/06/2021 FINDINGS: There is mild emphysema. The lungs are free of acute opacities. Calcified pulmonary nodules and calcified bilateral hilar lymph nodes are consistent with old granulomatous disease. No pleural effusion or pneumothorax. Calcified coronary artery atherosclerosis is noted. No pathologically enlar ged thoracic lymph nodes are identified. The heart size is normal. There is moderate thoracic spondyl osis. IMPRESSION: 1. Lung-RADS category 1: Negative. Continue annual screening with noncontrast low-dose chest CT in 12 months. Reviewed, dictated and finalized at location B. IMPRESSION: 1. Lung-RADS category 1: Negative. Continue annual screening with noncontrast l ow-dose chest CT in 12 months.
== END 2022-09-07 09:20 | disposition home or self-care (01) ==
PROVIDERS: PCP Physician Assistant; Visit Provider Nurse Practitioner Family
DX: Z12.2 Encounter for screening for malignant neoplasm of respiratory organs (principal); Z87.891 Personal history of nicotine dependence
CPT/HCPCS: 71271

== ENCOUNTER 2022-09-12 00:16 | Day surgery (SDC) | payer MEDICARE, SELFPAY ==
[2022-09-09 14:04] VITALS: BMI 27.0
[2022-09-12] VITALS (13 sets, daily range): BP systolic 95–147; BP diastolic 75–99; PULSE 48–92; RESP 14–20; TEMP 36.1–36.4; O2SAT 94–100; BMI 26.4
--- NOTE | 2022-09-12 07:00 | ECG_ITS ---
Measurements Intervals [place] Rate: 70 P: GA: 0 QRS: -29 QRSD: 89 T: 56 QT: 376 QTc: 407 Interpretive Statements ATRIAL FIBRILLATION ABNORMAL ECG NO PREVIOUS ECG AVAILABLE FOR COMPARISON Electronically Signed On 09-12-2022 16:57:35 CDT by Karthik Grier M.D.
[2022-09-12 07:46] LABS: Anion Gap 7 mmol/L (8-16); Blood Urea Nitrogen 13 mg/dL (9-20); Calcium 9.1 mg/dL (8.4-10.2); Carbon Dioxide 31 mmol/L (22-30); Chloride 101 mmol/L (98-107); Estimated CRCL calculation 76 ml/min; Estimated Glomerular Filt Rate > 60; Glucose 112 mg/dL (65-110); Potassium 4.4 mmol/L (3.4-5.0); Sodium 139 mmol/L (137-145)
[2022-09-12 07:51] LABS: Magnesium 1.9 mg/dL (1.6-2.3)
--- NOTE | 2022-09-12 08:45 | ECG_ITS ---
Measurements Intervals [place] Rate: 52 P: 40 MO: 230 QRS: -17 QRSD: 96 T: 39 QT: 439 QTc: 409 Interpretive Statements SINUS BRADYCARDIA WITH FIRST DEGREE AV BLOCK BORDERLINE ECG COMPARED TO ECG 09/12/2022 07:09:21 SINUS BRADYCARDIA HAS REPLACED ATRIAL FIBRILLATION Electronically Signed On 09-12-2022 16:58:57 CDT by Karthik Grier M.D.
--- NOTE | 2022-09-12 08:57 | WPDMODSED ---
Moderate Sedation Note-Pt Data Patient Data Diagnosis: Atrial fibrillation Present Complaint: this is a 71-year-old man with a prior history of coronary disease, chronic COPD and untreated sleep apnea. As an outpatient he was found to have atrial fibrillation and was anticoagulated for the last month. An attempt at restoring sinus rhythm electrically has been recommended and scheduled for today. Procedure to be performed/Plan: DC cardioversion Allergies Allergy/AdvReac Type Severity Reaction Status Date / Time No Known Drug Allergies Allergy Unknown Unknown Verified 09/09/22 14:22 Home Medications Medication Instructions Recorded Confirmed Type aspirin 81 mg tablet,delayed 81 mg PO DAILY 06/06/19 09/09/22 History release (Adult Low Dose Aspirin) atorvastatin 20 mg tablet 20 mg PO DAILY 06/06/19 09/09/22 History cephalexin 500 mg capsule 500 mg PO Q12H 06/06/19 09/09/22 History metoprolol succinate 25 mg 25 mg PO DAILY 06/06/19 09/09/22 History tablet,extended release 24 hr nitroglycerin 0.4 mg sublingual 0.4 mg sublingual Q5M PRN Pain 06/06/19 09/09/22 History tablet (Nitrostat) multivitamin,tx-minerals 1 tablet PO DAILY 09/13/19 09/09/22 History apixaban 5 mg tablet (Eliquis) 5 mg PO BID 09/09/22 09/09/22 History glycopyrrolate 9 mcg-formoterol 2 puff inhalation BID #10.7 grams 09/09/22 09/09/22 Rx 4.8 mcg HFA aerosol inhaler (Bevespi Aerosphere) Current Medications: Active Medications Sodium Chloride (Normal Saline Iv) 1,000 mls @ 30 mls/hr IV CONT .Q24H ANJANA Sedation/Anesthesia: No previous sedation/anesthesia problems (including family history). [facility] Past Medical History Medical History Bronchitis CAD (coronary artery disease) Cervical radiculopathy Chest discomfort COPD (chronic obstructive pulmonary disease) Hyperlipidemia Hypertension Myelopathy concurrent with and due to spinal stenosis of cervical region Tobacco abuse Surgical History Surgical History History of coronary artery stent placement Status post total hip replacement, bilateral Family History Family History Father Family history of malignant neoplasm Mother Family history of malignant neoplasm of brain Sibling Family history of throat cancer Social History Social History Social History: Heavy marijuana & cocaine smoking, none x last 14 year. Never smoked cigarettes. cigars x 30+ years Smoking packs per day: 1 Smoking cigarettes per day: 20.0 Years smoked: 45 Smoking pack-years: 45.00 Smoking status: Former smoker Tobacco type: cigars Second hand tobacco smoke exposure: Yes Smoking end date: 07/09/19 Alcohol intake: current Drinks per week: 12 Alcohol use details: occasionally Substance use: former Substance use type: former substance user, marijuana and crack/cocaine Last use: 2007 Lack of Transportation: No Lack of Food: Never True Current Housing: I Have Housing Concerned About Future Housing: No Difficulty Paying Gas/Electric Bills: No Difficulty Paying for Meds: No Currently Unemployed: No Education: Decline to Answer Difficulty w/ Childcare or Family Care: No Living arrangements: with family Occupation/Education: retired Gender identity (if verbalized by the patient): Male Sexual Orientation (if Verbalized by the Patient): Straight or Heterosexual Spiritual care concerns: No Agree to blood products: Yes Mod Sed Physical Exam Physical Exam Pre Procedural Exam: Normal: Appearance, Neck, Throat, Airway, Heart Size, Neuro Exam and Extremities and Variation: Lungs ( breath sounds diminished but mauro), Heart Rate and Heart Rhythm ( irregularly irregular) Hours since solid foods: 12 Hours since liquid intake:
--- NOTE | 2022-09-12 08:58 | WPDCARDPROC ---
Cardiac Cath Procedure Note Date of procedure:: 09/12/22 Performing physician:: Lucas Gutierres MD Indication:: persistent atrial fibrillation of uncertain duration Brief clinical history:: this is a 71-year-old man with chronic coronary artery disease, COPD with previous cigarette smoking and also with a history of untreated sleep apnea. He was found as an outpatient to have developed atrial fibrillation. After anticoagulation for 1 month an attempt at restoring sinus rhythm has now been recommended. Procedure Procedure performed:: DC cardioversion Sedation/Medication given:: IV propofol in aliquots total dosage of 70 mg given Estimated blood loss:: none Procedure note:: patient was brought to the cardiac catheterization lab holding area where he was in the postabsorptive state placed in the supine position defibrillator patches were placed in the AP position. He was sedated with propofol in aliquots a total dosage of 70 mg provided excellent sedation. He was then counter shocked in a synchronized fashion using 200 joules with 1 shock restoring sinus rhythm/ sinus bradycardia Findings:: as above Conclusion:: successful uncomplicated DC cardioversion terminating atrial fibrillation restoring sinus rhythm/ sinus bradycardia using 200 joules x1 shock Lucas Gutierres MD [facility]
--- NOTE | 2022-09-12 09:00 | WPDHPUPDATE1 ---
History and Physical Update Update Date/Time: 09/12/22 09:00 History and Physical has been reviewed, including an updated exam of the patient. There are NO changes in the patient's condition. Risks, benefits, and alternatives have been discussed and questions answered. Patient agrees to proceed with procedure.
--- NOTE | 2022-09-12 09:22 | SUR.PHASEII ---
Dr. Gutierres notified about HRs in upper 40s and low 50s. He did not want to change metoprolol succinate dosing. No new orders. Patient states he feels well. No pain, SOB, dizziness. He is drinking coffee at bedside.
--- NOTE | 2022-09-12 10:34 | SUR.PHASEII ---
1010 patient was discharged to private vehicle with no verbalized complaints including pain, dyspnea or dizziness. He walked the halls of the unit and felt well. discharge instructions reviewed and no questions or concerns per patient or his Kathy. Patient has follow up appt. in office with Dr. Gutierres this week 09/15/22.
== END 2022-09-12 10:10 | disposition home or self-care (01) ==
PROVIDERS: PCP Physician Assistant; Visit Provider Specialist
PROC: 5A2204Z Restoration of Cardiac Rhythm, Single (ICD-10-PCS; principal; 2022-09-12 08:30)
DX: I48.19 Other persistent atrial fibrillation (principal); I25.10 Atherosclerotic heart disease of native coronary artery without angina pectoris; J44.9 Chronic obstructive pulmonary disease, unspecified; E78.5 Hyperlipidemia, unspecified; G47.30 Sleep apnea, unspecified; Z79.01 Long term (current) use of anticoagulants; Z79.82 Long term (current) use of aspirin; Z79.51 Long term (current) use of inhaled steroids; Z95.5 Presence of coronary angioplasty implant and graft; Z87.891 Personal history of nicotine dependence
CPT/HCPCS: 36415; 80048; 83735; 92960; J2704; J7030

== ENCOUNTER 2022-09-20 08:10 | Outpatient (CLI) | payer MEDICARE, SELFPAY ==
--- NOTE | 2022-10-12 11:37 | WPDSLEEPSTUD ---
Sleep Study Date of Study: 09/20/22 Ordering Provider: Gustavo Castellanos APRN Interpreting Physician: Jaki Bourgeois MD Sleep Study Type: Split Polysomnogram Height: 1.83 m Weight: 87.09 kg Body Mass Index: 26.0 Neck Circumference (inches): 17 [place]: 9 Reason for Sleep Study Gasping for breath at night Sleep History Cristi Rasmussen is a 71-year-old man with COPD and cardiac disease. He often awakens gasping for breath at night. He frequently awakens from sleep feeling short of breath. He occasionally awakens at night with heartburn belching and especially coughing. He occasionally snores but it is not loud enough that his complains. He frequently has trouble sleeping with a cold. He occasionally wakes up gasping for breath at night. He occasionally has breathing problems at night observed by others. He does not sweat excessively at night. He occasionally notices his heart pounding or beating irregularly at night. He frequently falls asleep in the day but never involuntarily and never while driving. He does not have loss of muscle tone with strong emotion. He does not have daytime difficulties due to excessive sleepiness. He does not feel paralyzed on waking or falling asleep. He occasionally has vivid dreamlike scenes on waking or falling asleep. He does not feel afraid to go to sleep. He occasionally has nightmares. He occasionally remembers his dreams. He occasionally has racing thoughts. He rarely feels sad or depressed. He occasionally feels anxious. He occasionally has muscular tension. He does not notice parts of his body jerking he does not kick at night and he denies crawling and aching feelings in his legs. He rarely has any kind of leg pain at night. He does not have morning jaw pain. He does not grind his teeth during sleep. Constantly is bothered by pain during the day. He occasionally is awakened by pain at night. He occasionally wakes up feeling stiff in the morning he does not wake up with sore achy muscles and occasionally wakes up with pain in the neck and spine. Normal bedtime is 10:00 p.m. falling asleep within 10 minutes waking 3-4 times at night to urinate. He wakes the morning at 5:00 a.m.. He estimates getting only 4 to 4-1/2 hours of sleep at night. He keeps the same schedule on weekends. He may take a nap in the afternoon or evening. A short nap lasting 10 or 15 minutes is not refreshing. He feels better in the morning compared to other times of day. Habits: Never smoked tobacco. Caffeine 2 cups a day. Alcohol 3-4 per week. No recreational substances. [facility] Past Medical History Medical History Bronchitis CAD (coronary artery disease) Cervical radiculopathy Chest discomfort COPD (chronic obstructive pulmonary disease) Hyperlipidemia Hypertension Myelopathy concurrent with and due to spinal stenosis of cervical region Tobacco abuse Surgical History Surgical History History of coronary artery stent placement Status post total hip replacement, bilateral Family History Family History Father Family history of malignant neoplasm Mother Family history of malignant neoplasm of brain Sibling Family history of throat cancer Social History Social History Social History: Heavy marijuana & cocaine smoking, none x last 14 year. Never smoked cigarettes. cigars x 30+ years Smoking packs per day: 1 Smoking cigarettes per day: 20.0 Years smoked: 45 Smoking pack-years: 45.00 Smoking status: Former smoker Tobacco type: cigars Second hand tobacco smoke exposure: Yes Smoking end date: 07/09/19 Alcohol intake: current Drinks per week: 12 Alcohol use details: occasionally Substance use: former Substance use type: former substance
[2022-10-12 11:57] VITALS: BMI 26.0
== END 2022-09-21 06:35 | disposition home or self-care (01) ==
LOC: ANHCSM 08:11
PROVIDERS: PCP Physician Assistant; Visit Provider Nurse Practitioner Family
DX: G47.33 Obstructive sleep apnea (adult) (pediatric) (principal); J44.9 Chronic obstructive pulmonary disease, unspecified; Z87.891 Personal history of nicotine dependence
CPT/HCPCS: 95811

== ENCOUNTER 2023-03-16 08:52 | Outpatient (CLI) | payer MEDICARE, SELFPAY ==
--- NOTE | ~2023-03-16 | XR_ITS ---
Clinical Indication: Chronic cough PA and lateral views of the chest: Comparison: 05/06/2019 Findings: The lungs are clear, without evidence of focal consolidation or pleural effusion. Cardiome diastinal silhouette is within normal limits. Bones and soft tissues are unremarkable. Impression: Normal chest. Reviewed, dictated and finalized at location . Impression: Normal chest.
== END 2023-03-16 08:53 | disposition home or self-care (01) ==
PROVIDERS: PCP Family Medicine; Visit Provider Nurse Practitioner Family
DX: R05.3 Chronic cough (principal)
CPT/HCPCS: 71046

== ENCOUNTER 2023-09-11 09:46 | Outpatient (CLI) | payer MEDICARE, SELFPAY ==
--- NOTE | ~2023-09-11 | CT_ITS ---
CT Scan of the Chest without Contrast: Clinical Indication: Lung cancer screening, nicotine dependence Technique: Contiguous sections were acquired throughout the chest without intravenous contrast. Dose reduction technique was used on this scan by utilizing automated exposure control and iterative recon struction technique. The dose-length product (DLP) was 123.11 mGy-cm. Findings: There is no evidence of any significant mediastinal, hilar or axillary lymphadenopathy. Coronary fabiola ry calcifications are present. There is no evidence of pleural or pericardial effusion. 2 mm left upper lobe pulmonary nodule noted. Images through the upper abdomen reveal no abnormalities. Impression: Lung RADS 2: Benign appearance. 12 follow-up screening CT advised. Reviewed, dictated and finalized at location M. Impression: Lung RADS 2: Benign appearance. 12 follow-up screening CT advised.
== END 2023-09-11 09:47 | disposition home or self-care (01) ==
LOC: ANHIMG 09:48
PROVIDERS: PCP Family Medicine; Visit Provider Nurse Practitioner Family
DX: Z12.2 Encounter for screening for malignant neoplasm of respiratory organs (principal); Z87.891 Personal history of nicotine dependence
CPT/HCPCS: 71271

== ENCOUNTER 2024-01-17 14:42 | Observation (INO) | payer MEDICARE, SELFPAY ==
--- NOTE | ~2024-01-17 | CT_ITS ---
CT cervical spine wo con Ordering provider: Peg Vargas APRN History: . fall . Comparison: None. Technique: CT of the cervical spine was performed without contrast. Sagittal and coronal reformatted images were also obtained and reviewed. Automated exposure control and iterative reconstruction shyam hnique were employed. The dose-length product was 681.00 mGy-cm. FINDINGS: VERTEBRAE: No subluxation or acute fracture. The occipital condyles are intact. Fusion at the level of C3-C4 DISC SPACES: Narrowing of the disc C4-C5 and C5-C6. Multilevel facet joint disease. Osteoarthritic changes of the joint between C1 and C2 on t he left side. Multilevel uncovertebral joint osteoarthritic changes. Narrowing of the left interverte bral foramen at the level of C3-C3. Narrowing of the foramina at the level of C4-C5 and C5-C6. PARASPINOUS SOFT TISSUES: Bilateral carotid calcification.. IMPRESSION: No acute osseous abnormality cervical spine. Reviewed, dictated and finalized at location A.
--- NOTE | ~2024-01-17 | CT_ITS ---
CT brain wo con Ordering provider: Peg Vargas APRN History: 73 years Male with . syncope . Comparison: May 15, 2019 Technique: CT of the head without contrast. Radiation reduction technique utilized. The dose-length product was 681 mGy-cm. FINDINGS: BRAIN PARENCHYMA AND CSF SPACES: No midline shift, mass effect or hemorrhage. The brain parenchyma a nd CSF spaces are otherwise normal. Empty sella turcica. VISUALIZED PARANASAL SINUSES: Bilateral ethmoid sinus disease. MASTOIDS: Well aerated. BONES: The bones appear intact. SOFT TISSUES: Visualized nasopharynx is normal. Superficial soft tissues are normal. IMPRESSION: No acute intracranial findings. Reviewed, dictated and finalized at location A.
--- NOTE | ~2024-01-17 | XR_ITS ---
XR chest 2V Ordering provider: Raymond Hernandez MD History: 73 years Male with . syncopal episode . Comparison: March 16, 2023 FINDINGS: MEDIASTINUM: The cardiac silhouette is not enlarged. LUNGS: No infiltrates, effusions or pneumothorax. Emphysematous changes of the lungs. OTHER: No free air under the diaphragm. IMPRESSION: No acute cardiopulmonary pathology. Reviewed, dictated and finalized at location A.
--- NOTE | 2024-01-17 14:44 | ECG_ITS ---
Test Date: 2024-01-17 14:52:22 Measurements Intervals [place] Rate: 71 P: 0 UT: 0 QRS: -64 QRSD: 83 T: 41 QT: 372 QTc: 407 Interpretive Statements ATRIAL FIBRILLATION MARKED LEFT AXIS DEVIATION [QRS AXIS < -30] INCOMPLETE RIGHT BUNDLE BRANCH BLOCK No previous ECG available for comparison Electronically Signed On 01-18-2024 09:50:38 CDT by Paul Waite M.D.
[2024-01-17 14:48] VITALS: BP 139/84; PULSE 75; RESP 20; TEMP 37; O2SAT 98
[2024-01-17 15:09] LABS: Basophils Percent Auto 0.5 % (0.2-1.2); Eosinophils Absolute Auto 0.2 K/mm3 (0-0.3); Eosinophils Percent Auto 3.1 % (0-4.4); Hematocrit 43.9 % (42.0-52.0); Hemoglobin 15.3 g/dL (14.0-18.0); Immature Granulocyte Absolute 0.03 K/mm3 (0.00-0.031); Immature Granulocyte Percent A 0.4 % (0-0.5); Lymphocytes Absolute Auto 2.25 K/mm3 (0.9-3.2); Mean Corpuscular HGB Conc 34.9 g/dl (32-36); Mean Corpuscular Hemoglobin 31.5 pg (26-34); Mean Corpuscular Volume 90.5 fl (80-100); Mean Platelet Volume 9.3 fl (7.4-10.4); Monocytes Absolute Auto 0.7 K/mm3 (0.1-0.6); Monocytes Percent Auto 9.3 % (2.6-8.5); Neutrophils Absolute Auto 4.5 K/mm3 (1.3-6.7); Neutrophils Percent Auto 57.7 % (45.5-73.1); Platelet Count Result 239 k/mm3 (150-375); Red Blood Count 4.85 M/mm3 (4.6-6.20); Red Cell Distribution Width 13.2 % (11.5-14.5); White Blood Count 7.8 K/mm3 (4.5-10.0)
[2024-01-17 15:21] LABS: Alanine Aminotransferase 18 U/L (6-50); Albumin Level 4.5 g/dL (3.5-5.1); Alkaline Phosphatase 95 U/L (38-126); Anion Gap 13 mmol/L (4-12); Aspartate Amino Transferase 32 U/L (17-59); Bilirubin,Total 0.5 mg/dL (0.2-1.3); Blood Urea Nitrogen 12 mg/dL (9-20); Calcium 9.2 mg/dL (8.4-10.2); Carbon Dioxide 25 mmol/L (22-30); Chloride 99 mmol/L (98-107); Estimated CRCL calculation 76 ml/min; Estimated Glomerular Filt Rate > 60; Glucose 91 mg/dL (65-110); Potassium 4.5 mmol/L (3.4-5.0); Sodium 137 mmol/L (137-145)
--- NOTE | 2024-01-17 15:27 | ED.GENADULT ---
HPI - General Adult General Chief complaint: Syncope Stated complaint: syncope Time Seen by Provider: 01/17/24 14:51 History of Present Illness HPI narrative: Cristi Rasmussen is a 73 y/o male with PMhx with COPD SAMEER, CAD s/p multiple coronary stents and afib, sees Dr Gutierres on [facility] who presents today after syncope and collapse. He states that he has been feeling this light headed / dizziness off and on for several months but he can usually rest and it resolves and today it came on while he was walking to the bathroom and then the next thing he knew he was out fell on the bed bounced off and fell on the floor, he believes he came to pretty quick he was able to get himself up and he states he felt like his normal self but the episode was concerning to him and his . Denies any chest pain, admits to SOB with exertion but states this is typical for him. Denies any abdominal pain/ nausea/ vomiting/ fevers - states he has been eating and drinking well He adds that he has been having a lot of urinary issues and has followed up with a few urologist and they can't seem to find anything wrong but he saw blood in his urine after he had a syncope Related Data Home Medications Medication Instructions Recorded Confirmed aspirin 81 mg tablet,delayed 81 mg PO DAILY 06/06/19 12/01/23 release (Adult Low Dose Aspirin) atorvastatin 20 mg tablet 20 mg PO DAILY 06/06/19 12/01/23 metoprolol succinate 25 mg 25 mg PO DAILY 06/06/19 12/01/23 tablet,extended release 24 hr nitroglycerin 0.4 mg sublingual 0.4 mg sublingual Q5M PRN Pain 06/06/19 12/01/23 tablet (Nitrostat) multivitamin,tx-minerals 1 tablet PO DAILY 09/13/19 12/01/23 apixaban 5 mg tablet (Eliquis) 5 mg PO BID 09/09/22 12/01/23 cephalexin 500 mg capsule 500 mg PO BID 08/09/23 12/01/23 fluticasone propionate 50 intranasal 08/09/23 12/01/23 mcg/actuation nasal spray,suspension Allergies Allergy/AdvReac Type Severity Reaction Status Date / Time No Known Drug Allergies Allergy Unknown Unknown Verified 08/14/24 14:51 Review of Systems Review of Systems: CONSTITUTIONAL: Denies fever, chills, or sweats. EYES: Denies visual changes, redness, or discharge. ENT: Denies rhinorrhea, congestion, sore throat, or otalgia. CARDIOVASCULAR: Denies chest pain, palpitations, or edema. RESPIRATORY: Denies cough or dyspnea. GASTROINTESTINAL: Denies abdominal pain, nausea, vomiting, or diarrhea. GENITOURINARY: Denies dysuria or hematuria. SKIN: Denies rash or itching. MUSCULOSKELETAL: Denies back pain, joint pain, or myalgia. NEUROLOGIC: Denies headache, numbness, dizziness, or weakness. PSYCHIATRIC: Denies anxiety or depression. [facility] Past Medical History Medical History CAD (coronary artery disease) Cervical radiculopathy COPD (chronic obstructive pulmonary disease) Hyperlipidemia Hypertension Irritable bowel syndrome with constipation Myelopathy concurrent with and due to spinal stenosis of cervical region Obstructive sleep apnea PAF (paroxysmal atrial fibrillation) Tobacco abuse Surgical History Surgical History History of coronary artery stent placement History of total left hip arthroplasty History of total right hip arthroplasty Status post total hip replacement, bilateral Family History Family History Father Family history of malignant neoplasm Mother Family history of malignant neoplasm of brain Sibling Family history of throat cancer Social History Social History Social History: Heavy marijuana & cocaine smoking, none x last 14 year. Never smoked cigarettes. cigars x 30+ years Smoking packs per day: 1 Smoking cigarettes per day: 20.0 Years smoked: 45 Smoking pack-years: 45.00 Smoking status: Former smoker Tobacco type: cigars [place]
[2024-01-17 15:56] LABS: Magnesium 1.8 mg/dL (1.6-2.3)
[2024-01-17 15:58] LABS: D Dimer 0.43 ug/mL (<0.48)
[2024-01-17 16:09] LABS: Troponin I < 0.012 ng/mL (0.000-0.034)
[2024-01-17 17:00] LABS: Add Urine Microscopic? NO; Appearance Urine Clear (Clear); Bilirubin Urine Negative (Negative); Blood Urine Negative (Negative); Color Urine Yellow (Yellow); Glucose Urine UA Negative (Negative); Ketones Urine Negative (Negative); Leukocyte Esterase Ur Negative LEU/UL (Negative); Nitrate Urine Negative (Negative); Protein Urine Negative (Negative); Specific Grav Ur 1.008 (1.001-1.035); Urobilinogen Urine 0.2 mg/dL (<2.0); pH Urine 5.5 (5.0-9.0)
[2024-01-17 18:45] VITALS: BMI 26.0
[2024-01-17 18:48] VITALS: BP 152/89; PULSE 84; RESP 18; TEMP 36.4; O2SAT 96
[2024-01-17 19:24] LABS: Troponin I < 0.012 ng/mL (0.000-0.034)
[2024-01-17 20:00] VITALS: PULSE 64
[2024-01-17 20:19] VITALS: BP 105/63; PULSE 58; RESP 18; TEMP 36.5; O2SAT 98
--- NOTE | 2024-01-17 20:38 | PM.IMHP ---
H&P: HPI History of Present Illness Date/Time: 01/17/24 20:38 Chief Complaint: syncope Narrative: 73-year-old male with past medical history significant for coronary artery disease, status post PTCA I, hypertension, COPD /emphysema, obstructive sleep apnea, paroxysmal atrial fibrillation, tobacco dependence. Patient presents to the emergency room after having episode of syncope. Patient has been his usual state of health up until this point got up from his recliner walk down the hallway and felt lightheaded he then woke up on the floor S states the my have last consciousness for brief period of time. Denies any chest pain, palpitations, nausea, vomiting, abdominal pain, leg swelling, chills, fevers, cough, sputum production, PND or orthopnea. Preliminary workup has been essentially nonrevealing ruled out for acute pulmonary embolism with a negative CT angiogram of the chest however patient found to be orthostatic. Patient has been placed in observation for further evaluation management and treatment CT brain wo con Ordering provider: Peg Vargas APRN History: 73 years Male with . syncope . Comparison: May 15, 2019 Technique: CT of the head without contrast. Radiation reduction technique utilized. The dose-length product was 681 mGy-cm. FINDINGS: BRAIN PARENCHYMA AND CSF SPACES: No midline shift, mass effect or hemorrhage. The brain parenchyma and CSF spaces are otherwise normal. Empty sella turcica. VISUALIZED PARANASAL SINUSES: Bilateral ethmoid sinus disease. MASTOIDS: Well aerated. BONES: The bones appear intact. SOFT TISSUES: Visualized nasopharynx is normal. Superficial soft tissues are normal. IMPRESSION: No acute intracranial findings. XR chest 2V Ordering provider: Raymond Hernandez MD History: 73 years Male with . syncopal episode . Comparison: March 16, 2023 FINDINGS: MEDIASTINUM: The cardiac silhouette is not enlarged. LUNGS: No infiltrates, effusions or pneumothorax. Emphysematous changes of the lungs. OTHER: No free air under the diaphragm. IMPRESSION: No acute cardiopulmonary pathology. CT cervical spine wo con Ordering provider: Peg Vargas APRN History: . fall . Comparison: None. Technique: CT of the cervical spine was performed without contrast. Sagittal and coronal reformatted images were also obtained and reviewed. Automated exposure control and iterative reconstruction technique were employed. The dose-length product was 681.00 mGy-cm. FINDINGS: VERTEBRAE: No subluxation or acute fracture. The occipital condyles are intact. Fusion at the level of C3-C4 DISC SPACES: Narrowing of the disc C4-C5 and C5-C6. Multilevel facet joint disease. Osteoarthritic changes of the joint between C1 and C2 on the left side. Multilevel uncovertebral joint osteoarthritic changes. Narrowing of the left intervertebral foramen at the level of C3-C3. Narrowing of the foramina at the level of C4-C5 and C5-C6. PARASPINOUS SOFT TISSUES: Bilateral carotid calcification.. IMPRESSION: No acute osseous abnormality cervical spine. [facility] Past Medical History Medical History CAD (coronary artery disease) Cervical radiculopathy COPD (chronic obstructive pulmonary disease) Hyperlipidemia Hypertension Irritable bowel syndrome with constipation Myelopathy concurrent with and due to spinal stenosis of cervical region Obstructive sleep apnea PAF (paroxysmal atrial fibrillation) Tobacco abuse Surgical History Surgical History History of coronary artery stent placement History of total left hip arthroplasty History of total right hip arthroplasty Status post total hip replacement, bilateral Family History Family History Father Family history of malignant neoplasm Mother Family history of malignant
[2024-01-18] VITALS: PULSE 66
--- NOTE | 2024-01-18 | ECHO_ITS ---
Patient Info Name: Cristi Rasmussen Age: 73 years : 1950 Gender: Male Ht: 72 in Wt: 192 lbs BSA: 2.11 m2 HR: 66 bpm BP: 126 / 78 mmHg Heart Rhythm: Atrial Fibrillation Technical Quality: Fair Exam Date: 01/18/2024 4:09 PM Exam Location: Echo Lab Patient Status: Outpatient Admit Date: 01/17/2024 Staff Ordering Physician: Scott Champion MD Pull Up Hand: Juan Mccann [facility] [[email or web address]] Attending Provider: Shannon Fraser MD Referring Physician: Akira WILKINSON; Exam Type: CA echo doppler color flow Study Info Indications R55 - Syncope and collapse I48.1 - Persistent atrial fibrillation Complete two-dimensional, color flow and Doppler transthoracic echocardiogram is performed. Summary 1. Complete two-dimensional, color flow and Doppler transthoracic echocardiogram is performed. 2. Normal left ventricular size and systolic contractility. 3. Mild biatrial dilation. 4. Mild mitral and tricuspid regurgitation. 5. Sclerotic aortic valve which is not significantly stenotic. 6. Atrial fibrillation. Left Ventricle Left ventricular chamber dimension is normal. Left ventricular systolic function is normal, estimated at 55-60%. The left ventricular diastolic function is indeterminate. Right Ventricle Right ventricular chamber dimension is normal. Left Atria Left atrial chamber dimension is mildly enlarged. Right Atria Right atrial chamber dimension is mildly enlarged. Aortic Valve There is mild aortic valve sclerosis. Pulmonic Valve The pulmonic valve is not well visualized. Mitral Valve The mitral valve has normal leaflets. There is mild mitral valve regurgitation. Tricuspid Valve The tricuspid valve leaflets are normal. There is mild tricuspid valve regurgitation. Pericardium/Pleural The pericardium appears normal. Aorta The aortic root size at the sinus of Valsalva is normal. Left Ventricular Outflow Tract Name Value Normal LVOT 2D LVOT Diameter 2.0 cm LVOT Doppler LVOT Peak Gradient 2 mmHg LVOT Mean Gradient 1 mmHg LVOT VTI 14 cm LVOT VTI/AV VTI Ratio 0.6 LVOT Stroke Volume 44 ml LVOT CO 3.0 l/min LVOT CI 1.4 l/min/m2 Pulmonic Valve Name Value Normal PV Doppler PV Peak Gradient 2 mmHg Mitral Valve Name Value Normal MV Doppler MV Decel [place] 792 cm/s2 MV PHT 45 ms MV Area (PHT) 4.9 cm2 4.0-5.0 MV Diastolic Function
[2024-01-18] MEDS: SODIUM CHLORIDE 0.9% IV 1,000 ML 999 ML IV CONT (01:37)
[2024-01-18 04:00] VITALS: PULSE 64
[2024-01-18 05:38] VITALS: BP 126/78; PULSE 66; RESP 18; TEMP 36.7; O2SAT 99
--- NOTE | 2024-01-18 07:46 | PM.IMPN ---
Progress Note: A&P Assessment and Plan (1) Syncope and collapse: Code(s): R55 - Syncope and collapse Status: Acute Assessment and Plan: PLACED IN OBSERVATION IN MED TELE EKG WITH A FIB/ FLUTTER RULED OUT FOR PE WITH CTA OF CHEST PATIENT WAS ORTHOSTATIC GENTLE BOLUS OF NS CONTINUE TO MONITOR SUPPORTIVE CARE WILL OBTAIN ECHOCARDIOGRAM IN A.M. CARDIOLOGY CONSULT (2) PAF (paroxysmal atrial fibrillation): Code(s): I48.0 - Paroxysmal atrial fibrillation Status: Deleted Assessment and Plan: RATE CONTROLLED ANTICOAGULATED (3) Myelopathy concurrent with and due to spinal stenosis of cervical region: Code(s): M48.02 - Spinal stenosis, cervical region; G99.2 - Myelopathy in diseases classified elsewhere Status: Acute Assessment and Plan: UNCHANGED (4) CAD (coronary artery disease): Qualifiers: Associated angina: with other forms of angina Coronary Disease-Associated Artery/Lesion type: [place] artery [place] vs. transplanted heart: [place] heart Qualified Code(s): I25.118 - Atherosclerotic heart disease of [place] coronary artery with other forms of angina pectoris Code(s): I25.10 - Atherosclerotic heart disease of [place] coronary artery without angina pectoris Status: Acute Assessment and Plan: HISTORY OF PTCI (5) Obstructive sleep apnea: Code(s): G47.33 - Obstructive sleep apnea (adult) (pediatric) Status: Acute Assessment and Plan: CPAP AT NIGHTTIME (6) COPD (chronic obstructive pulmonary disease): Qualifiers: COPD type: unspecified COPD Qualified Code(s): J44.9 - Chronic obstructive pulmonary disease, unspecified Code(s): J44.9 - Chronic obstructive pulmonary disease, unspecified Status: Acute Assessment and Plan: BREATHING TREATMENTS NOT ACTIVELY WHEEZING Plan Summary 09/25/22 2DECHO 1. Complete two-dimensional, color flow and Doppler transthoracic echocardiogram is performed. 2. Left ventricular chamber dimension is normal. 3. Left ventricular systolic function is normal, estimated at 55-60%. 4. There is mildly increased left ventricular wall thickness. 5. Right ventricular chamber dimension is mildly enlarged. 6. Right ventricular systolic function is normal. 7. The aortic valve is not well visualized. 8. There is mild aortic valve sclerosis. 9. The mitral valve has thickened leaflets. 10. The mitral valve annulus is mildly calcified. 11. There is mild mitral valve regurgitation. 12. There is mild tricuspid valve regurgitation. 13. There is small anterior pericardial effusion. Time Spent With Patient Time with patient: Greater than 35 minutes Subjective Date/time seen: 01/18/24 07:46 Interval history: Narrative retrieved from H/P: 73-year-old male with past medical history significant for coronary artery disease, status post PTCA I, hypertension, COPD /emphysema, obstructive sleep apnea, paroxysmal atrial fibrillation, tobacco dependence. Patient presents to the emergency room after having episode of syncope. Patient has been his usual state of health up until this point got up from his recliner walk down the hallway and felt lightheaded he then woke up on the floor S states the my have last consciousness for brief period of time. Denies any chest pain, palpitations, nausea, vomiting, abdominal pain, leg swelling, chills, fevers, cough, sputum production, PND or orthopnea. Preliminary workup has been essentially nonrevealing ruled out for acute pulmonary embolism with a negative CT angiogram of the chest however patient found to be orthostatic. Patient has been placed in observation for further evaluation management and treatment 01/17- pt is seen and examined. cardiology consulted. Exam Narrative: laying in bed Const: General: comfortable, no acute distress, well developed, alert, awake, average body habitus and thin Nutrition
[2024-01-18 08:00] VITALS: PULSE 68
[2024-01-18] MEDS: ASPIRIN 81 MG ENTERIC TABLET PO (08:52)
[2024-01-18] MEDS: APIXABAN 5 MG TABLET PO (08:52)
[2024-01-18 08:53] VITALS: PULSE 77
[2024-01-18] MEDS: CEPHALEXIN 500 MG CAPSULE PO (08:53)
[2024-01-18] MEDS: SERTRALINE HCL 25 MG TABLET PO (08:53)
[2024-01-18] MEDS: METOPROLOL SUCCINATE EXT REL 25 MG TABCR PO (08:53)
--- NOTE | 2024-01-18 10:54 | PM.CNCAR ---
Assessment and Plan Assessment and plan (1) Syncope and collapse: Code(s): R55 - Syncope and collapse Status: Acute Assessment and Plan: Due to orthostatic hypotension. Agree with gentle fluid resuscitation; further management of orthostasis as per primary team. Encouraged patient to stay adequately hydrated at home, reduced alcohol intake, slowly change positions when going from sitting to standing, etc. He is in permanent atrial fibrillation, therefore, unlikely that his AFIB was the reason for syncope. An echocardiogram has already been ordered. If echocardiogram is unremarkable, no additional cardiac workup needs to be done. (2) Permanent atrial fibrillation: Code(s): I48.21 - Permanent atrial fibrillation Status: Acute Assessment and Plan: In permanent atrial fibrillation, pursuing rate control strategy. Continue Metoprolol. Continue Eliquis. (3) Primary hypertension: Code(s): I10 - Essential (primary) hypertension Status: Acute Assessment and Plan: Had orthostatic hypotension on admission. (4) CAD (coronary artery disease): Qualifiers: Associated angina: with other forms of angina Coronary Disease-Associated Artery/Lesion type: [place] artery [place] vs. transplanted heart: [place] heart Qualified Code(s): I25.118 - Atherosclerotic heart disease of [place] coronary artery with other forms of angina pectoris Code(s): I25.10 - Atherosclerotic heart disease of [place] coronary artery without angina pectoris Status: Acute Assessment and Plan: Stable. Continue ASA and statin. (5) Hyperlipidemia: Qualifiers: Hyperlipidemia type: mixed hyperlipidemia Qualified Code(s): E78.2 - Mixed hyperlipidemia Code(s): E78.5 - Hyperlipidemia, unspecified Status: Acute Assessment and Plan: Continue statin. (6) COPD (chronic obstructive pulmonary disease): Qualifiers: COPD type: unspecified COPD Qualified Code(s): J44.9 - Chronic obstructive pulmonary disease, unspecified Code(s): J44.9 - Chronic obstructive pulmonary disease, unspecified Status: Acute Assessment and Plan: Management as per primary team. History of Present Illness History of Present Illness Consult date/time: 01/18/24 10:54 Requesting physician: Peg Vargas APRN Consult reason: Other (Syncope) Reason For Visit: Syncope Collapse Narrative: We are consulted for syncope. This is a 73 [address] old patient of Dr. Gutierres's with coronary artery disease s/p prior PCI, permanent atrial fibrillation, COPD, SAMEER who presented to [facility] after a syncopal episode. Patient got lightheaded/dizzy when walking and then fell to the floor. This had happened after he got up from sitting in a recliner. Patient found to be orthostatic on admission. Troponins are negative. Head CT negative. EKG with rate controlled atrial fibrillation. He reports occasional orthostatic symptoms when going from a sitting position to a standing position. He had been outside working and drinking a couple of beers yesterday prior to his syncopal episode. Review of Systems Review of Systems: All systems reviewed & are unremarkable except as noted in HPI and below (HPI) [facility] Past Medical History Medical History (Updated 01/18/24 @ 11:01 by Paul Waite MD) CAD (coronary artery disease) Cervical radiculopathy COPD (chronic obstructive pulmonary disease) Hyperlipidemia Hypertension Irritable bowel syndrome with constipation Myelopathy concurrent with and due to spinal stenosis of cervical region Obstructive sleep apnea Tobacco abuse Surgical History Surgical History History of coronary artery stent placement History of total left hip arthroplasty History of total right hip arthroplasty Status post total hip replacement, bilateral Family History Family History (Reviewed 01/18/24 @ 11:
[2024-01-18 14:00] VITALS: BP 116/70; PULSE 74; RESP 16; TEMP 36.5; O2SAT 99
--- NOTE | 2024-01-18 15:21 | PM.DS ---
DS: Admitting Diagnosis Discharge Date 01/17 Admitting Diagnosis syncope DS: Discharge Diagnosis Discharge Diagnosis (1) Syncope and collapse: Code(s): R55 - Syncope and collapse Status: Acute Assessment and Plan: PLACED IN OBSERVATION IN [facility] TELE EKG WITH A FIB/ FLUTTER RULED OUT FOR PE WITH CTA OF CHEST PATIENT WAS ORTHOSTATIC GENTLE BOLUS OF NS CONTINUE TO MONITOR SUPPORTIVE CARE WILL OBTAIN ECHOCARDIOGRAM IN A.M. CARDIOLOGY CONSULT (2) PAF (paroxysmal atrial fibrillation): Code(s): I48.0 - Paroxysmal atrial fibrillation Status: Deleted Assessment and Plan: RATE CONTROLLED ANTICOAGULATED (3) Myelopathy concurrent with and due to spinal stenosis of cervical region: Code(s): M48.02 - Spinal stenosis, cervical region; G99.2 - Myelopathy in diseases classified elsewhere Status: Acute Assessment and Plan: UNCHANGED (4) CAD (coronary artery disease): Qualifiers: Associated angina: with other forms of angina Coronary Disease-Associated Artery/Lesion type: [place] artery [place] vs. transplanted heart: [place] heart Qualified Code(s): I25.118 - Atherosclerotic heart disease of [place] coronary artery with other forms of angina pectoris Code(s): I25.10 - Atherosclerotic heart disease of [place] coronary artery without angina pectoris Status: Acute Assessment and Plan: HISTORY OF PTCI (5) Obstructive sleep apnea: Code(s): G47.33 - Obstructive sleep apnea (adult) (pediatric) Status: Acute Assessment and Plan: CPAP AT NIGHTTIME (6) COPD (chronic obstructive pulmonary disease): Qualifiers: COPD type: unspecified COPD Qualified Code(s): J44.9 - Chronic obstructive pulmonary disease, unspecified Code(s): J44.9 - Chronic obstructive pulmonary disease, unspecified Status: Acute Assessment and Plan: BREATHING TREATMENTS NOT ACTIVELY WHEEZING Plan final dx: paroxysmal afib Summary 09/25/22 2DECHO 1. Complete two-dimensional, color flow and Doppler transthoracic echocardiogram is performed. 2. Left ventricular chamber dimension is normal. 3. Left ventricular systolic function is normal, estimated at 55-60%. 4. There is mildly increased left ventricular wall thickness. 5. Right ventricular chamber dimension is mildly enlarged. 6. Right ventricular systolic function is normal. 7. The aortic valve is not well visualized. 8. There is mild aortic valve sclerosis. 9. The mitral valve has thickened leaflets. 10. The mitral valve annulus is mildly calcified. 11. There is mild mitral valve regurgitation. 12. There is mild tricuspid valve regurgitation. 13. There is small anterior pericardial effusion. DS: Summary Hospital Course Hospital Course: Narrative retrieved from H/P: 73-year-old male with past medical history significant for coronary artery disease, status post PTCA I, hypertension, COPD /emphysema, obstructive sleep apnea, paroxysmal atrial fibrillation, tobacco dependence. Patient presents to the emergency room after having episode of syncope. Patient has been his usual state of health up until this point got up from his recliner walk down the hallway and felt lightheaded he then woke up on the floor S states the my have last consciousness for brief period of time. Denies any chest pain, palpitations, nausea, vomiting, abdominal pain, leg swelling, chills, fevers, cough, sputum production, PND or orthopnea. Preliminary workup has been essentially nonrevealing ruled out for acute pulmonary embolism with a negative CT angiogram of the chest however patient found to be orthostatic. Patient has been placed in observation for further evaluation management and treatment 01/17- pt is seen and examined. cardiology consulted. Pt has outpt cardiology- he will f/u. OK to d/c p[er card once echo is done. pt is pain free Status at Discharge Functional status at
== END 2024-01-18 17:43 | disposition home or self-care (01) ==
LOC: ANHED 15:05 → ANH3MEDSUR 18:22 → ANH2MED 18:25
PROVIDERS: Emergency Medicine; Admitting Provider General Practice; Emergency Provider Nurse Practitioner Family; PCP Family Medicine; Visit Provider General Practice
DX: R55 Syncope and collapse (principal); I25.10 Atherosclerotic heart disease of native coronary artery without angina pectoris; I48.0 Paroxysmal atrial fibrillation; G47.33 Obstructive sleep apnea (adult) (pediatric); J44.9 Chronic obstructive pulmonary disease, unspecified; Z79.01 Long term (current) use of anticoagulants; I10 Essential (primary) hypertension; E78.2 Mixed hyperlipidemia; Z96.643 Presence of artificial hip joint, bilateral; Z87.891 Personal history of nicotine dependence; M48.02 Spinal stenosis, cervical region; G99.2 Myelopathy in diseases classified elsewhere
CPT/HCPCS: 36415; 70450; 71046; 72125; 80053; 81003; 83735; 84484; 85025; 85380; 93005; 93306; 96360; 99285; A9270; G0378; J7030

== ENCOUNTER 2024-08-16 10:49 | Outpatient (CLI) | payer MEDICARE, SELFPAY ==
--- OUTSIDE RECORDS SUMMARY | 2024-08-16 11:38 | XMS_ITS | Referral Summary ---
Author Organization [facility] Address [address] [place] [address] Care Team Providers Care Associate Director Qa Name Role Phone Alex Low Primary Care Provider Unavaila ble Source Comments [facility],non-owned Affiliates and Associated Physician Practices is amultiple site organization consisting of ambulatory clinics and hospital sitesin [place], [place], [place] and [place]. This disclosure is being madepursuant to the Care Everywhere program and may not contain all information available regarding this patient. Last updated 18.[facility] Allergies No known active allergies Medications * Be aware that medications may not be up to date on this document. Alwaysverify current medications with the patient. Medication Sig Dispensed Refills Start Date End Date Status atorvastatin (LIPITOR) 20 MG tablet Take 20 mg by mouth. 09/07/2017 Active aspirin EC (ECOTRIN) 81 MG tablet Take 81 mg by mouth once daily Active multivitamins (ONE A DAY) capsule Take 1 capsule by mouth once daily Active metoprolol succinate XL 24hr (TOPROL XL) 25 MG tablet TAKE 1 TABLET DAILY 01/07/2021 Active tamsulosin (FLOMAX) 0.4 MG capsule Take 1 (one) capsule by mouth once daily At the same time every day after a meal. 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 9 History of coronary artery stent placement 03/08 Wound infection 08/03/2017 Sepsis 08/03/2017 S/P hip replacement, left 08/03/2017 Fall 07/13/2017 Hip dislocation, left 07/13/2017 Primary osteoarthritis of right hip 07/13/2017 Arthralgia of hip 07/13/2017 Benign prostatic hyperplasia with nocturia 12/28 Overview (10/12/2017): Overview: ICD-10 update ICD-10 update Nocturia 12/28/2016 Overview (09/04/2017): ICD-10 update History of colonic polyps 11/25/2014 Overview (09/04/2017): Colonoscopy 08/2014 normal Hyperlipidemia 10/06/2014 Overview (10/12/2017): Overview: Hyperlipidemia Atherosclerosis of coronary artery 10/06/2014 Overview (10/12/2017): Overview: Coronary atherosclerosis Viral hepatitis C without hepatic coma 5 Overview (09/04/2017): Liver biopsy G2 S2 Genotype 1a 08/08/14 Fibroscan 5.0 kPa Pt will receive Harvoni today . Pt has an appt with his Convention Services Director tomorrow and will start Harvoni October 03, get [facility] labs 10/31/14 and f/u with A Waylon DENNY 11/25/14. 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 (FLUAD QUADRIVALENT; 65Y+) (AIIV4) 02/14/2020 INFLUENZA VACCINE, HIGH-DOSE , QUADR. (FLUZONE HIGH-DOSE QUADRIVALENT; 65Y+), 0.7 ML (HD-IIV4) 04/22/2019 Zoster Hzv Vacc Recombinant Inj Im 04/15/2020, Social History Tobacco Use Types Packs/Day Years Used Date Smoking Tobacco: Former Cigars Q uit: 02/07/2020 Smokeless Tobacco: Never Tobacco Cessation:Counseling Given: No Comments:1 a day Alcohol Use Standard Drinks/Week Comments Yes 8 (1 standard drink = 0.6 oz pur e alcohol) beers/week Sex and Gender Information Value Date Recorded Sex Assigned at Not on file Gender Identity Male 07/13/2017 10:31 PM [employer] Sexual Orientation Not on file Last Filed Vital Signs Vital Sign Reading Time Taken Comments Blood Pressure 166/86 09/14/2021 9:29 AM CDT Pulse 58 09/14/2021 9:29 AM CDT Temperature 37 C (98.6 F) 03/16/2021 9:44 AM CDT Respiratory Rate 16 09/10/2020 1:15 PM CDT Oxygen Saturation 99% 09/14/2021 9:29 AM CDT Inhaled Oxygen Concentration - - Weight 90.7 kg (200 lb) 09/22/2021 8:49 AM CDT Height 180.3 cm (5' 11 ) 09/22/2021 8:49 AM CDT Body Mass Index 27.89 09/22/2021 8:49 AM CDT Functional Status Functional Status Response Date of Assess ment Is person deaf or have serious hearing difficult y? No 09/10/2020 Is person blind or have serious difficulty seein g? No 09/10/2020 Does person have serious dif ficulty walking/climbing stairs? No 09/10/2020 Does person have difficulty dressing/bathing? No 09/10/2020 Does person have difficulty doing errands alone? No 09/10/2020 Cognitive Status Response Date of Assessm ent Does person have difficulty concentrating/remembering/making decisions? No 09/10/2020 Plan of Treatment Not on file Medical Devices Implanted Type Area Body Service Team Member Device Identifier Shelf Expiration Date Model / Serial / Lot Sabrina Modular Revision System Straight Tapered Splined Distal Stem 17mm X 190mm W/ Locking Screw Implanted:Qty: 1 on 07/18/2017 by Rishabh Maddox MD at [facility] Left: Hip [employer] 09/03/2023 [id number] / / [id number] Trident X3 O Degree Polyethylene Insert Implanted:Qty: 1 on 07/18/2017 by Rishabh Maddox MD at [facility] Left: Hip [employer] [employer] 09/14/2020 623-00-40G / / [id number] Sabrina Modular Revision System Cone Proximal Body/Type I Taper Implanted:Qty: 1 on 07/18/2017 by Rishabh Maddox MD at [facility] Left: Hip [employer] 02/02/2021 [id number] / / [id number] Slv Centering G7 Std Ofst Tpr Hip Ti Ty Implanted:Qty: 1 on 07/18/2017 by Rishabh Maddox MD at [facility] Left: Hip [employer] 12/22/2026 [id number] / / [id number] Head Fem 40mm Hip Blx D Biolox Optn G7 Implanted:Qty: 1 on 07/18/2017 by Rishabh Maddox MD at [facility] Left: Hip [employer] 11/14/2026 [id number] / / [id number] Satnam Hip Tot Rev 50% Of 2014 Implanted:Qty: 1 on 07/18/2017 by Rishabh Maddox MD at [facility] [employer] HR2 TOTAL HIP REVISION RADHA BILL ONLY / / Constrained Acetabular Insert Implanted:Qty: 1 on 08/11/2017 by Rishabh Maddox MD at [facility] Left: Hip [employer] [id number] / / Head Fem -3mm Ofst 28mm Hip Ty 1 Cocr G7 Implanted:Qty: 1 on 08/11/2017 by Rishabh Maddox MD at [facility] Left: Hip [employer] [id number] / / Procedures Procedure Name Priority Date/Time Associated Diagnosis Comments HEPATITIS C AB W/RFLX TO HCV RNA QN PCR Routine 10/23/2015 9:19 AM CDT from Last 3 Months or Most Recently Relevant to Health Maintenance Results * (ABNORMAL) HEPATITIS C AB W/RFLX TO HCV RNA QN PCR (10/23/2015 9:19 AM CDT) Hepatitis C Antibody REACTIVE( A) NON-REACT CK [facility] Signal/Cutoff 26.00(H) <1.00 [facility] Comment: Following CDC recommendations (MMWR No. 62, 2013), this patient's HCV Antibody Reactive sample will be tested for the presence of HCV RNA by a Nucleic Acid Amplification Test (NAAT) to determine if the patient has an active HCV infection. REPORT COMMENT: FASTING:NO Test Performed at: [facility] [id number] [place] [address] JERRICA MATTHEWS DO,MPH 10/23/2015 9:19 AM CDT 10/23/2015 9:20 AM CDT Mariaelena Connors PA-C LAB - CHEMISTRY O RDERABLES [facility] from Last 3 Months or Most Recently Relevant to Health Maintenance Advance Directives * Full Code (Latest Code Status on File) Date Activated Date Inactivated Comments 08/01/2019 9:20 AM 08/01/2019 3:12 PM * Full Code Date Activated Date Inactivated Comments 09/06/2018 4:11 AM 09/07/2018 2:28 PM * Full Code Date Activated Date Inactivated Comments 09/06/2018 2:52 AM 09/06/2018 4:11 AM * Full Code Date Activated Date Inactivated Comments 07/10/2018 11:59 AM 07/10/2018 6:44 PM * Full Code Date Activated Date Inactivated Comments 07/10/2018 11:52 AM 07/10/2018 11:59 AM Care Teams Associate Director Qa Relationship Specialty Start Date End Date Alex Low Update Information PCP - General 12/22/20
--- OUTSIDE RECORDS SUMMARY | 2024-08-16 11:39 | XMS_ITS | Clinical Summary ---
Author Organization [facility] Address [address] [place] [id number] Care Team Providers Care Staff Midwife/Apprenticeship Director Name Role Phone Unavailable Primary Care Provider Unavailabl e Immunizations Name Administration Dates Next Due MODERNA COVID-19 (12+) MRNA, LNP-S, PF, 100 MCG/ 0.5 ML DOSE 08/12/2020,07/15/2020 Social History Tobacco Use Types Packs/Day Years Used Date Smoking Tobacco: Never Assessed Sex and Gender Information Value Date Recorded Sex Assigned at Not on file Legal Sex Male 5:21 PM CDT Gender Identity Not on file Sexual Orientation Not on file Plan of Treatment Health Maintenance Due Date Last Done Comments Colorectal Cancer Screening Colonoscopy (10 Years) 1950 Hepatitis C 1966 DTaP, Tdap and Td Vaccines ( 1 - Tdap) 12/24/1967 Pneumococcal Vaccine: 65+ Years (2 of 2 - PPSV23 or PCV20) 03/19/2018 03/19/2017, 02/18/2016 RSV Immunization or 60+ Years (1 - 1-dose 75+ series) 12/24/2023 COVID-19 Vaccine (3 - 2023-2 5 season) 2024 08/12/2020, 07/15/2020 Influenza Adult (#1) 2024 03/20/2018, 03/19/2017 Zoster Vaccines Completed 04/15/2020, 02/14/2020 Meningococcal B Vaccine Aged Out No l onger eligible based on patient's age to complete this topic Meningococcal Vaccine Aged Out No leatha thierno eligible based on patient's age to complete this topic RSV Immunizations Under 20 Months Aged Out No longer eligible b ased on patient's age to complete this topic
--- OUTSIDE RECORDS SUMMARY | 2024-08-16 11:39 | XMS_ITS | Patient Health Summary ---
Author Organization [facility] Address [address] [place] [address] Care Team Providers Care Software Engineer Developer Name Role Phone Alex Low Primary Care Provider Unavaila ble Note from [facility],non-owned Affiliates and Associated Physician Practices is amultiple site organization consisting of ambulatory clinics and hospital sitesin [place], [place], [place] and [place]. This disclosure is being madepursuant to the Care Everywhere program and may not contain all information available regarding this patient. Last updated 18.[facility] Allergies No known active allergies Medications * Be aware that medications may not be up to date on this document. Alwaysverify current medications with the patient. * atorvastatin (LIPITOR) 20 MG tablet(Started 09/07/2017) Take 20 mg by mouth. * aspirin EC (ECOTRIN) 81 MG tablet Take 81 mg by mouth once daily * multivitamins (ONE A DAY) capsule Take 1 capsule by mouth once daily * metoprolol succinate XL 24hr (TOPROL XL) 25 MG tablet(Started 01/07/2021) TAKE 1 TABLET DAILY * tamsulosin (FLOMAX) 0.4 MG capsule(Started 01/12/2021) Take 1 (one) capsule by mouth once daily At the same time every day after a meal. 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 9 History of coronary artery stent placement 03/08 Wound infection 08/03/2017 Sepsis 08/03/2017 S/P hip replacement, left 08/03/2017 Fall 07/13/2017 Hip dislocation, left 07/13/2017 Primary osteoarthritis of right hip 07/13/2017 Arthralgia of hip 07/13/2017 Benign prostatic hyperplasia with nocturia 12/28 Nocturia 12/28/2016 History of colonic polyps 11/25/2014 Hyperlipidemia 10/06/2014 Atherosclerosis of coronary artery 10/06/2014 Viral hepatitis C without hepatic coma 5 Chronic obstructive pulmonary disease 07/22/2014 Atherosclerotic heart diseas e of [place] coronary artery without angina pectoris 07/22/2014 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 (FLUAD QUADRIVALENT; 65Y+) (AIIV4)(Given 02/14/2020) * INFLUENZA VACCINE, HIGH-DOSE, QUADR. 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 Sexual Orientation Not on file Last Filed [...] Mass Index 27.89 09/22/2021 8:49 AM CDT Medical Devices Implanted Type Area Pediatric Dental Assistant Device Identifier Shelf Expiration Date Model / Serial / Lot Sabrina Modular Revision System Straight Tapered Splined Distal Stem 17mm X 190mm W/ Locking Screw Implanted:Qty: 1 on 07/18/2017 by Rishabh Maddox MD at [facility] Left: Hip [employer] 09/03/2023 [id number] / / [id number] Trident X3 O Degree Polyethylene Insert Implanted:Qty: 1 on 07/18/2017 by Rishabh Maddox MD at [facility] Left: Hip [employer] 09/14/2020 623-00-40G / / [id number] Sabrina Modular Revision System Cone Proximal Body/Type I Taper Implanted:Qty: 1 on 07/18/2017 by Rishabh Maddox MD at [facility] Left: Hip [employer] 02/02/2021 [id number] / / [id number] Slv Centering G7 Std Ofst Tpr Hip Ti Ty Implanted:Qty: 1 on 07/18/2017 by Rishabh Maddox MD at [facility] Left: Hip Radha [employer] 12/22/2026 [id number] / / [id number] Head Fem 40mm Hip Blx D Biolox Optn G7 Implanted:Qty: 1 on 07/18/2017 by Rishabh Maddox MD at [facility] Left: Hip Radha [employer] 11/14/2026 [id number] / / [id number] Satnam Hip Tot Rev 50% Of 2014 Implanted:Qty: 1 on 07/18/2017 by Rishabh Maddox MD at [facility] Radha [employer]omet HR2 TOTAL HIP REVISION RADHA BILL ONLY / / Constrained Acetabular Insert Implanted:Qty: 1 on 08/11/2017 by Rishabh Maddox MD at [facility] Left: Hip [employer] 690-00-28G / / Head Fem -3mm Ofst 28mm Hip Ty 1 Cocr G7 Implanted:Qty: 1 on 08/11/2017 by Rishabh Maddox MD at [facility] Left: Hip Radha [employer] [id number] / / Procedures * XR PELVIS W LEFT HIP 2VW(Performed 09/22/2021) Performed for Surgery follow-up examination * MO MSR PVR U&/BLADD CAPCTY US NON(Performed 09/14/2021) Performed for History of urethral stricture * URINALYSIS AUTO - POINT OF CARE (AMB) SLU(Performed 09/14/2021) Performed for History of urethral stricture * URINALYSIS AUTO - POINT OF CARE (AMB) SLU(Performed 03/16/2021) Performed for History of urethral stricture * URINALYSIS W/MICROSCOPIC NO CULTURE(Performed 02/22/2021) * CULTURE URINE(Performed 02/22/2021) Performed for Pain in joint involving pelvic region and thigh, unspecified laterality, Lower urinary tract symptoms (LUTS) * IMAGING/RADIOLOGY/XRAY RESULTS ORDER(Performed 02/17/2021) * MO CYSTOURETHROSCOPY(Performed 01/12/2021) Performed for History of urethral stricture, Gross hematuria * URINALYSIS AUTO - POINT OF CARE (AMB) SLU(Performed 01/12/2021) Performed for History of urethral stricture * XR PELVIS W LEFT HIP 2VW(Performed 09/14/2020) Performed for Pain * CARDIAC EKG ORDER(Performed 09/11/2020) * MO CYSTOSCOPY,DIR VIS INT URETHROTOMY(Performed 09/10/2020) Performed for History of urethral stricture * LARYNGEAL MASK AIRWAY(Performed 09/10/2020) * URINALYSIS NO MICROSCOPIC NO CULTURE(Performed 09/07/2020) Performed for Stricture of urethral meatus in male, unspecified stricture type, Pre-op testing * CULTURE URINE(Performed 09/07/2020) Performed for Stricture of urethral meatus in male, unspecified stricture type, Pre-op testing * CBC W/O DIFFERENTIAL(Performed 09/07/2020) Performed for Pre-op evaluation * BASIC METABOLIC PANEL (CALCIUM TOTAL)(Performed 09/07/2020) Performed for Pre-op evaluation * EKG 12-LEAD(Performed 09/07/2020) Performed for Pre-op evaluation, History of coronary artery stent placement * SARS-COV-2 (COVID-19) IN HOUSE(Performed 09/07/2020) Performed for Stricture of urethral meatus in male, unspecified stricture type, Pre-op testing * URINALYSIS W/MICROSCOPIC NO CULTURE(Performed 08/27/2020) * CULTURE URINE(Performed 08/27/2020) * MO CYSTOURETHROSCOPY(Performed 08/11/2020) Performed for History of urethral stricture * URINALYSIS AUTO - POINT OF CARE (AMB) SLU(Performed 08/11/2020) Performed for History of urethral stricture * MO MSR PVR U&/BLADD CAPCTY US NON(Performed 08/04/2020) Performed for History of urethral stricture, Urinary incontinence, male, stress * URINALYSIS AUTO - POINT OF CARE (AMB) SLU(Performed 08/04/2020) Performed for History of urethral stricture, Urinary incontinence, male, stress * FL URETHROGRAM RETROGRADE(Performed 06/26/2020) Performed for Postprocedural male urethral stricture * CARDIAC EKG ORDER(Performed 06/11/2020) * PATHOLOGY TISSUE(Performed 06/08/2020) Performed for Other urethral bulbous stricture, male * URETHROPLASTY (MALE)(Performed 06/08/2020) Performed for Other urethral bulbous stricture, male * ENDOTRACHEAL TUBE NOTE(Performed 06/08/2020) * SARS-COV-2 (COVID-19) IN HOUSE(Performed 06/04/2020) Performed for Bulbous urethral stricture, Pre-op testing * URINALYSIS NO MICROSCOPIC NO CULTURE(Performed 05/25/2020) Performed for Bulbous urethral stricture, Pre-op testing * BASIC METABOLIC PANEL (CALCIUM TOTAL)(Performed 05/25/2020) Performed for Bulbous urethral stricture, Pre-op testing * CBC W AUTO DIFFERENTIAL(Performed 05/25/2020) Performed for Bulbous urethral stricture, Pre-op testing * CULTURE URINE(Performed 05/25/2020) Performed for Bulbous urethral stricture, Pre-op testing * EKG 12-LEAD(Performed 05/25/2020) Performed for History of coronary artery stent placement * MO CYSTOURETHROSCOPY(Performed 05/12/2020) Performed for Bulbous urethral stricture * URINALYSIS AUTO - POINT OF CARE (AMB) SLU(Performed 05/12/2020) Performed for Bulbous urethral stricture * MO MSR PVR U&/BLADD CAPCTY US NON(Performed 04/21/2020) Performed for Other urethral bulbous stricture, male * URINALYSIS AUTO - POINT OF CARE (AMB) SLU(Performed 04/21/2020) Performed for Other urethral bulbous stricture, male * CARDIAC EKG ORDER(Performed 08/21/2019) * C-REACTIVE PROTEIN(Performed 08/19/2019) Performed for History of joint replacement, unspecified joint * ERYTHROCYTE SEDIMENTATION RATE(Performed 08/19/2019) Performed for History of joint replacement, unspecified joint * CHROMIUM BLOOD(Performed 08/19/2019) Performed for History of joint replacement, unspecified joint * COBALT BLOOD LEVEL(Performed 08/19/2019) Performed for History of joint replacement, unspecified joint * XR PELVIS W LEFT HIP 2VW(Performed 08/19/2019) Performed for Surgery follow-up examination * CULTURE URINE(Performed 08/07/2019) Performed for Hematuria, unspecified type * CARDIAC EKG ORDER(Performed 08/03/2019) * URETHROTOMY / URETHROSTOMY(Performed 08/01/2019) Performed for Other urethral bulbous stricture, male * LARYNGEAL MASK AIRWAY(Performed 08/01/2019) * EKG 12-LEAD(Performed 07/19/2019) Performed for Atherosclerosis of [place] coronary artery of [place] heart without angina pectoris, History of coronary artery stent placement * BASIC METABOLIC PANEL (CALCIUM TOTAL)(Performed 07/05/2019) Performed for Postprocedural male urethral stricture, Pre-op testing * CBC W AUTO DIFFERENTIAL(Performed 07/05/2019) Performed for Postprocedural male urethral stricture, Pre-op testing * CULTURE URINE(Performed 07/05/2019) Performed for Postprocedural male urethral stricture, Pre-op testing * LAB RESULTS ORDER(Performed 05/15/2019) * LAB RESULTS ORDER(Performed 05/15/2019) * CT UROGRAM(Performed 04/15/2019) Performed for Gross hematuria * CREATININE BLOOD - POINT OF CARE (IP)(Performed 04/15/2019) Performed for Gross hematuria * PROSTATE SPECIFIC ANTIGEN SCREEN(Performed 04/09/2019) * CULTURE URINE(Performed 12/25/2018) Performed for Gross hematuria * CBC W AUTO DIFFERENTIAL(Performed 09/07/2018) Performed for Dislocation of left hip, sequela * BASIC METABOLIC PANEL (CALCIUM TOTAL)(Performed 09/07/2018) Performed for Dislocation of left hip, sequela * PT EVAL AND TREAT(Performed 09/06/2018) * OT EVAL AND TREAT(Performed 09/06/2018) * CBC W AUTO DIFFERENTIAL(Performed 09/06/2018) * LACTIC ACID BLOOD(Performed 09/06/2018) * BASIC METABOLIC PANEL (CALCIUM TOTAL)(Performed 09/06/2018) * XR FEMUR LEFT 2VW(Performed 09/06/2018) Performed for S/P revision of total hip * XR PELVIS W LEFT HIP 2VW(Performed 09/06/2018) Performed for S/P revision of total hip * C-REACTIVE PROTEIN(Performed 09/05/2018) * ERYTHROCYTE SEDIMENTATION RATE(Performed 09/05/2018) * LACTIC ACID BLOOD(Performed 09/05/2018) * COMPREHENSIVE METABOLIC PANEL(Performed 09/05/2018) * CBC W AUTO DIFFERENTIAL(Performed 09/05/2018) * CARDIAC EKG ORDER(Performed 08/22/2018) * XR PELVIS W LEFT HIP 2VW(Performed 08/13/2018) Performed for Pain of left hip joint * CARDIAC EKG ORDER(Performed 07/11/2018) * LARYNGEAL MASK AIRWAY(Performed 07/10/2018) * URETHROTOMY / URETHROSTOMY(Performed 07/10/2018) Performed for Other urethral bulbous stricture, male * TYPE + SCREEN PANEL(Performed 07/05/2018) Performed for Dislocation of left hip, sequela, Primary osteoarthritis of right hip, Atherosclerosis of [place] coronary artery of [place] heart without angina pectoris, History of coronary artery stent placement * BASIC METABOLIC PANEL (CALCIUM TOTAL)(Performed 07/05/2018) Performed for Dislocation of left hip, sequela, Primary osteoarthritis of right hip, Atherosclerosis of [place] coronary artery of [place] heart without angina pectoris, History of coronary artery stent placement * CBC W/O DIFFERENTIAL(Performed 07/05/2018) Performed for Dislocation of left hip, sequela, Primary osteoarthritis of right hip, Atherosclerosis of [place] coronary artery of [place] heart without angina pectoris, History of coronary artery stent placement * EKG 12-LEAD(Performed 07/05/2018) Performed for Pre-op evaluation, Atherosclerosis of [place] coronary artery of [place] heart without angina pectoris, History of coronary artery stent placement * CULTURE URINE(Performed 06/26/2018) Performed for Other urethral bulbous stricture, male * FL UROGRAM RETROGRADE(Performed 06/19/2018) Performed for Other urethral bulbous stricture, male * IMAGING/RADIOLOGY/XRAY RESULTS ORDER(Performed 05/21/2018) * MO CYSTOURETHROSCOPY(Performed 05/17/2018) Performed for Gross hematuria * XR PELVIS W LEFT HIP 2VW(Performed 05/14/2018) Performed for Pain of left hip joint * URINALYSIS MICROSCOPIC ONLY REFLEXED(Performed 05/10/2018) Performed for Hematuria, unspecified type * URINALYSIS W/MICROSCOPIC NO CULTURE(Performed 05/10/2018) Performed for Hematuria, unspecified type * URINALYSIS AUTO - POINT OF CARE (AMB) SLU(Performed 05/10/2018) Performed for Hematuria, unspecified type * THERAPY REPORT(Performed 01/11/2018) * MO MSR PVR U&/BLADD CAPCTY US NON(Performed 12/15/2017) Performed for BPH with obstruction/lower urinary tract symptoms * URINALYSIS AUTO - POINT OF CARE (AMB) SLU(Performed 12/15/2017) Performed for BPH with obstruction/lower urinary tract symptoms * C-REACTIVE PROTEIN(Performed 10/12/2017) Performed for Infection and inflammatory reaction due to other internal joint prosthesis, subsequent encounter * ERYTHROCYTE SEDIMENTATION RATE(Performed 10/12/2017) Performed for Infection and inflammatory reaction due to other internal joint prosthesis, subsequent encounter * XR HIP LEFT 2VW OR MORE(Performed 10/12/2017) Performed for Left hip pain * CARDIAC EKG ORDER(Performed 08/16/2017) * CARDIAC RHYTHM STRIP ORDER(Performed 08/16/2017) * RENAL FUNCTION PANEL(Performed 08/15/2017) * CBC W AUTO DIFFERENTIAL(Performed 08/15/2017) * CULTURE BLOOD(Performed 08/14/2017) * CULTURE BLOOD(Performed 08/14/2017) * IRON + TRANSFERRIN PANEL(Performed 08/14/2017) * FERRITIN(Performed 08/14/2017) * RENAL FUNCTION PANEL(Performed 08/14/2017) * CBC W AUTO DIFFERENTIAL(Performed 08/14/2017) * RENAL FUNCTION PANEL(Performed 08/13/2017) * CBC W AUTO DIFFERENTIAL(Performed 08/13/2017) * OCCULT BLOOD FECES(Performed 08/12/2017) * RENAL FUNCTION PANEL(Performed 08/12/2017) * CBC W AUTO DIFFERENTIAL(Performed 08/12/2017) * XR PELVIS W LEFT HIP 2VW(Performed 08/11/2017) Performed for Pain of left hip joint * ENDOTRACHEAL TUBE NOTE(Performed 08/11/2017) * PREPARE RBC LEUKOREDUCED UNIT(Performed 08/11/2017) * TYPE + SCREEN PANEL(Performed 08/11/2017) * ARTHROPLASTY TOTAL HIP REVISION(Performed 08/11/2017) Performed for Diagnosis unknown * PLACEMENT/CHANGE WOUND VAC(Performed 08/11/2017) Performed for Diagnosis unknown * IRRIGATION AND DEBRIDEMENT HIP WITH WOUND CLOSURE(Performed 08/11/2017) Performed for Diagnosis unknown * PREPARE RBC LEUKOREDUCED UNIT(Performed 08/11/2017) * RENAL FUNCTION PANEL(Performed 08/11/2017) * CBC W AUTO DIFFERENTIAL(Performed 08/11/2017) * XR PELVIS W LEFT HIP 2VW(Performed 08/10/2017) Performed for Pain of left hip joint * MAGNESIUM BLOOD(Performed 08/10/2017) * RENAL FUNCTION PANEL(Performed 08/10/2017) * CBC W AUTO DIFFERENTIAL(Performed 08/10/2017) * MAGNESIUM BLOOD(Performed 08/09/2017) * RENAL FUNCTION PANEL(Performed 08/09/2017) * CBC W AUTO DIFFERENTIAL(Performed 08/09/2017) * PULSE OXIMETRY, SPOT(Performed 08/09/2017) * PULSE OXIMETRY, SPOT(Performed 08/09/2017) * PULSE OXIMETRY, SPOT(Performed 08/09/2017) * PULSE OXIMETRY, SPOT(Performed 08/09/2017) * CULTURE WOUND+GRAM STAIN(Performed 08/08/2017) Performed for Diagnosis unknown * CULTURE AFB+SMEAR(Performed 08/08/2017) Performed for Diagnosis unknown * CULTURE ANAEROBE(Performed 08/08/2017) Performed for Diagnosis unknown * ENDOTRACHEAL TUBE NOTE(Performed 08/08/2017) * PLACEMENT/CHANGE WOUND VAC(Performed 08/08/2017) Performed for Diagnosis unknown * IRRIGATION/DEBRIDEMENT HIP(Performed 08/08/2017) Performed for Diagnosis unknown * MAGNESIUM BLOOD(Performed 08/08/2017) * RENAL FUNCTION PANEL(Performed 08/08/2017) * CBC W AUTO DIFFERENTIAL(Performed 08/08/2017) * PULSE OXIMETRY, SPOT(Performed 08/08/2017) * PULSE OXIMETRY, SPOT(Performed 08/08/2017) * PULSE OXIMETRY, SPOT(Performed 08/08/2017) * PULSE OXIMETRY, SPOT(Performed 08/08/2017) * PULSE OXIMETRY, SPOT(Performed 08/08/2017) * PULSE OXIMETRY, SPOT(Performed 08/08/2017) * MAGNESIUM BLOOD(Performed 08/07/2017) * RENAL FUNCTION PANEL(Performed 08/07/2017) * CBC W AUTO DIFFERENTIAL(Performed 08/07/2017) * PULSE OXIMETRY, SPOT(Performed 08/07/2017) * PULSE OXIMETRY, SPOT(Performed 08/07/2017) * PULSE OXIMETRY, SPOT(Performed 08/07/2017) * PULSE OXIMETRY, SPOT(Performed 08/07/2017) * PULSE OXIMETRY, SPOT(Performed 08/07/2017) * PULSE OXIMETRY, SPOT(Performed 08/07/2017) * MAGNESIUM BLOOD(Performed 08/06/2017) * RENAL FUNCTION PANEL(Performed 08/06/2017) * CBC W AUTO DIFFERENTIAL(Performed 08/06/2017) * PULSE OXIMETRY, SPOT(Performed 08/06/2017) * PULSE OXIMETRY, SPOT(Performed 08/06/2017) * PULSE OXIMETRY, SPOT(Performed 08/06/2017) * PULSE OXIMETRY, SPOT(Performed 08/06/2017) * PULSE OXIMETRY, SPOT(Performed 08/06/2017) * PULSE OXIMETRY, SPOT(Performed 08/06/2017) * VANCOMYCIN LEVEL TROUGH(Performed 08/05/2017) * MAGNESIUM BLOOD(Performed 08/05/2017) * RENAL FUNCTION PANEL(Performed 08/05/2017) * CBC W AUTO DIFFERENTIAL(Performed 08/05/2017) * PULSE OXIMETRY, SPOT(Performed 08/05/2017) * PULSE OXIMETRY, SPOT(Performed 08/05/2017) * PULSE OXIMETRY, SPOT(Performed 08/05/2017) * PULSE OXIMETRY, SPOT(Performed 08/05/2017) * PULSE OXIMETRY, SPOT(Performed 08/05/2017) * PULSE OXIMETRY, SPOT(Performed 08/05/2017) * URINE DRUG SCREEN IMMUNOASSAY(Performed 08/04/2017) * HGB HCT PANEL(Performed 08/04/2017) * CULTURE FUNGUS OTHER+FUNGUS SMEAR(Performed 08/04/2017) Performed for Diagnosis unknown * CULTURE FLUID+GRAM STAIN(Performed 08/04/2017) Performed for Diagnosis unknown * CULTURE AFB+SMEAR(Performed 08/04/2017) Performed for Diagnosis unknown * CULTURE ANAEROBE(Performed 08/04/2017) Performed for Diagnosis unknown * CULTURE FUNGUS OTHER+FUNGUS SMEAR(Performed 08/04/2017) Performed for Diagnosis unknown * CULTURE FLUID+GRAM STAIN(Performed 08/04/2017) Performed for Diagnosis unknown * CULTURE AFB+SMEAR(Performed 08/04/2017) Performed for Diagnosis unknown * CULTURE ANAEROBE(Performed 08/04/2017) Performed for Diagnosis unknown * ENDOTRACHEAL TUBE NOTE(Performed 08/04/2017) * PLACEMENT/CHANGE WOUND VAC(Performed 08/04/2017) Performed for Diagnosis unknown * IRRIGATION/DEBRIDEMENT HIP(Performed 08/04/2017) Performed for Diagnosis unknown * TYPE + SCREEN PANEL(Performed 08/04/2017) * PREPARE RBC LEUKOREDUCED UNIT(Performed 08/04/2017) * DIFFERENTIAL MANUAL(Performed 08/04/2017) * MAGNESIUM BLOOD(Performed 08/04/2017) * RENAL FUNCTION PANEL(Performed 08/04/2017) * CBC W AUTO DIFFERENTIAL(Performed 08/04/2017) * LACTIC ACID BLOOD(Performed 08/04/2017) * URINE MICROSCOPIC ONLY(Performed 08/04/2017) * URINALYSIS REFLEX TO MICROSCOPIC NO CULTURE(Performed 08/04/2017) * EOSINOPHIL URINE SMEAR(Performed 08/04/2017) * PULSE OXIMETRY, SPOT(Performed 08/04/2017) * PULSE OXIMETRY, SPOT(Performed 08/04/2017) * PULSE OXIMETRY, SPOT(Performed 08/04/2017) * PULSE OXIMETRY, SPOT(Performed 08/04/2017) * PULSE OXIMETRY, SPOT(Performed 08/04/2017) * PULSE OXIMETRY, SPOT(Performed 08/04/2017) * CULTURE WOUND+GRAM STAIN(Performed 08/03/2017) * PULSE OXIMETRY, SPOT(Performed 08/03/2017) * PULSE OXIMETRY, SPOT(Performed 08/03/2017) * PULSE OXIMETRY, SPOT(Performed 08/03/2017) * PULSE OXIMETRY, SPOT(Performed 08/03/2017) * PULSE OXIMETRY, SPOT(Performed 08/03/2017) * PULSE OXIMETRY, SPOT(Performed 08/03/2017) * PULSE OXIMETRY, SPOT(Performed 08/03/2017) * PULSE OXIMETRY, SPOT(Performed 08/03/2017) * PULSE OXIMETRY, SPOT(Performed 08/03/2017) * ED CRITICAL CARE(Performed 08/03/2017) Performed for Wound infection, S/P hip replacement, left * CK BLOOD(Performed 08/03/2017) * TROPONIN I(Performed 08/03/2017) * LACTIC ACID BLOOD(Performed 08/03/2017) * XR CHEST 1VW PORTABLE(Performed 08/03/2017) Performed for Wound infection * XR PELVIS W LEFT HIP 2VW(Performed 08/03/2017) Performed for Wound infection * CULTURE BLOOD(Performed 08/03/2017) * CULTURE BLOOD(Performed 08/03/2017) * NICOTINE + METABOLITES BLOOD(Performed 08/03/2017) * ERYTHROCYTE SEDIMENTATION RATE(Performed 08/03/2017) * C-REACTIVE PROTEIN(Performed 08/03/2017) * TROPONIN I(Performed 08/03/2017) * LACTIC ACID BLOOD(Performed 08/03/2017) * COMPREHENSIVE METABOLIC PANEL(Performed 08/03/2017) * CBC W AUTO DIFFERENTIAL(Performed 08/03/2017) * EKG 12-LEAD(Performed 08/03/2017) Performed for Wound infection * CARDIAC RHYTHM STRIP ORDER(Performed 07/25/2017) * TSH(Performed 07/21/2017) * PTH INTACT(Performed 07/21/2017) * VITAMIN D 25-HYDROXY(Performed 07/21/2017) * HGB HCT PANEL(Performed 07/20/2017) * HGB HCT PANEL(Performed 07/19/2017) * HGB HCT PANEL(Performed 07/18/2017) * XR HIP LEFT 1VW(Performed 07/18/2017) Performed for Dislocation of left hip, initial encounter ([facility]) * XR HIP LEFT 1VW(Performed 07/18/2017) Performed for Pain * ENDOTRACHEAL TUBE NOTE(Performed 07/18/2017) * ARTHROPLASTY TOTAL HIP REVISION(Performed 07/18/2017) Performed for Diagnosis unknown * TYPE + SCREEN PANEL(Performed 07/17/2017) Performed for Pain of left hip joint, Fall, initial encounter, Dislocation of left hip, initial encounter ([facility]), Primary osteoarthritis of right hip, Pain from implanted hardware, sequela, Diagnosis unknown, Dislocation of left hip, sequela * PREPARE RBC LEUKOREDUCED UNIT(Performed 07/17/2017) Performed for Dislocation of left hip, sequela * URINALYSIS REFLEX MICROSCOPIC REFLEX CULTURE(Performed 07/17/2017) Performed for Diagnosis unknown * CULTURE URINE(Performed 07/17/2017) Performed for Diagnosis unknown * URINE MICROSCOPIC ONLY REFLEX TO CULTURE(Performed 07/17/2017) Performed for Diagnosis unknown * CYSTOSCOPY (FLEXIBLE/RIGID)(Performed 07/17/2017) Performed for Diagnosis unknown * URINALYSIS REFLEX TO MICROSCOPIC NO CULTURE(Performed 07/14/2017) * CBC W AUTO DIFFERENTIAL(Performed 07/14/2017) * BASIC METABOLIC PANEL (CALCIUM TOTAL)(Performed 07/14/2017) * PULSE OXIMETRY, SPOT(Performed 07/14/2017) * PULSE OXIMETRY, SPOT(Performed 07/14/2017) * PULSE OXIMETRY, SPOT(Performed 07/14/2017) * PULSE OXIMETRY, SPOT(Performed 07/14/2017) * PULSE OXIMETRY, SPOT(Performed 07/14/2017) * PULSE OXIMETRY, SPOT(Performed 07/14/2017) * PULSE OXIMETRY, SPOT(Performed 07/14/2017) * PULSE OXIMETRY, SPOT(Performed 07/14/2017) * PULSE OXIMETRY, SPOT(Performed 07/14/2017) * PULSE OXIMETRY, SPOT(Performed 07/14/2017) * PULSE OXIMETRY, SPOT(Performed 07/14/2017) * EKG 12-LEAD(Performed 07/14/2017) Performed for Dislocation of left hip, initial encounter ([facility]) * CT PELVIS WO CONTRAST(Performed 07/13/2017) Performed for Pain of left hip joint, Fall, initial encounter, Dislocation of left hip, initial encounter ([facility]) * XR FEMUR LEFT 2VW(Performed 07/13/2017) Performed for Pain of left hip joint, Fall, initial encounter * XR PELVIS 1 OR 2VW(Performed 07/13/2017) Performed for Pain of left hip joint, Fall, initial encounter * TYPE + SCREEN PANEL(Performed 07/13/2017) * C-REACTIVE PROTEIN(Performed 07/13/2017) * ERYTHROCYTE SEDIMENTATION RATE(Performed 07/13/2017) * CK BLOOD(Performed 07/13/2017) * ALCOHOL ETHYL BLOOD(Performed 07/13/2017) * TROPONIN I(Performed 07/13/2017) * PT-INR(Performed 07/13/2017) * COMPREHENSIVE METABOLIC PANEL(Performed 07/13/2017) * CBC W AUTO DIFFERENTIAL(Performed 07/13/2017) * URINALYSIS AUTO - POINT OF CARE (AMB) [facility](Performed 12/08/2016) * URINALYSIS AUTO - POINT OF CARE (AMB) [facility](Performed 03/04/2016) * PROSTATE SPECIFIC ANTIGEN SCREEN(Performed 12/25/2015) * URINALYSIS AUTO - POINT OF CARE (AMB) [facility](Performed 12/25/2015) * HEPATITIS C RNA QUANT (NONGRAPH) RFLX GENOTYPE(Performed 10/23/2015) * HEPATITIS C AB W/RFLX TO HCV RNA QN PCR(Performed 10/23/2015) * COMPREHENSIVE METABOLIC PANEL(Performed 10/23/2015) * CBC W AUTO DIFFERENTIAL(Performed 10/23/2015) * HEPATITIS C RNA QUANTITATIVE(Performed 07/08/2015) * COMPREHENSIVE METABOLIC PANEL(Performed 07/08/2015) * CBC W AUTO DIFFERENTIAL(Performed 07/08/2015) * CBC W AUTO DIFFERENTIAL(Performed 07/08/2015) * HEPATITIS C REAL-TIME PCR QUANTASURE(Performed 04/06/2015) * COMPREHENSIVE METABOLIC PANEL(Performed 04/06/2015) * CBC W AUTO DIFFERENTIAL(Performed 04/06/2015) * TESTOSTERONE TOTAL MALE(Performed 03/04/2015) * PSA SERIAL(Performed 03/04/2015) * HEPATITIS C REAL-TIME PCR QUANTASURE(Performed 12/29/2014) * COMPREHENSIVE METABOLIC PANEL(Performed 12/29/2014) * CBC W AUTO DIFFERENTIAL(Performed 12/29/2014) * LIVER FIBROSIS PANEL(Performed 11/03/2014) * HEPATITIS C GENOTYPE(Performed 11/03/2014) * HEPATITIS C REAL-TIME PCR QUANTASURE(Performed 11/03/2014) * CBC W AUTO DIFFERENTIAL(Performed 11/03/2014) * PT-INR [facility](Performed 11/03/2014) * HEPATITIS C FIBROSURE(Performed 08/26/2014) * HEPATITIS C GENOTYPE(Performed 07/07/2014) * HEPATITIS C RNA QUANTITATIVE(Performed 07/07/2014) * HEPATITIS C ANTIBODY(Performed 07/07/2014) * PT-INR [facility](Performed 07/07/2014) * COMPREHENSIVE METABOLIC PANEL(Performed 07/07/2014) * CBC W AUTO DIFFERENTIAL(Performed 07/07/2014) * CBC W AUTO DIFFERENTIAL(Performed 07/07/2014) * PSA SERIAL(Performed 05/07/2014) * URINALYSIS AUTO - POINT OF CARE (AMB) [facility](Performed 05/07/2014) * HEPATITIS C RNA QUANTITATIVE(Performed 06/25/2013) * URINALYSIS AUTO - POINT OF CARE (AMB) [facility](Performed 05/14/2013) * PROSTATE SPECIFIC ANTIGEN SCREEN(Performed 10/30/2012) * HEPATITIS C RNA QUANTITATIVE(Performed 07/03/2012) * COMPREHENSIVE METABOLIC PANEL(Performed 07/03/2012) * CBC W AUTO DIFFERENTIAL(Performed 07/03/2012) * URINALYSIS - POINT OF CARE (AMB) [facility](Performed 05/01/2012) * URINALYSIS - POINT OF CARE (AMB) [facility](Performed 01/31/2012) * URINALYSIS REFLEX TO MICROSCOPIC NO CULTURE(Performed 01/10/2012) * CULTURE URINE(Performed 01/10/2012) * URINALYSIS W/MICROSCOPIC NO CULTURE(Performed 11/22/2011) * BASIC METABOLIC PANEL (CALCIUM TOTAL)(Performed 11/22/2011) * PATHOLOGY/GENETICS HISTORICAL-ONBASE(Performed 11/13/2011) * LAB HISTORICAL RESULTS-ONBASE(Performed 10/26/2011) * LAB HISTORICAL RESULTS-ONBASE(Performed 10/26/2011) * LAB HISTORICAL RESULTS-ONBASE(Performed 10/26/2011) * LAB HISTORICAL RESULTS-ONBASE(Performed 10/26/2011) * LAB HISTORICAL RESULTS-ONBASE(Performed 10/26/2011) * LAB HISTORICAL RESULTS-ONBASE(Performed 10/25/2011) * URINALYSIS - POINT OF CARE (AMB) [facility](Performed 04/26/2011) * PROSTATE SPECIFIC ANTIGEN SCREEN(Performed 01/25/2011) * URINALYSIS - POINT OF CARE (AMB) [facility](Performed 06/05/1998) * URINALYSIS - POINT OF CARE (AMB) [facility](Performed 06/05/1998) * URINALYSIS - POINT OF CARE (AMB) [facility](Performed 06/05/1998) Results * XR PELVIS W LEFT HIP 2VW (09/22/2021 8:33 AM CDT) Only the most recent of9 resultswithin the time period is included. Anatomical Region Laterality Modality Pelvis Radiographic Marianela ging 09/22/2021 9:4 7 AM CDT Impressions 09/22/2021 9:49 AM CDT 1. Unchanged intact bilateral total hip arthroplasties 2. 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 INDICATION: Follow-up hip replacement. FINDINGS: Since 09/14/2020 bilateral total hip arthroplasties are again noted. No evidence of hardware failure or loosening. The left femoral components is elongated and unchanged. Again noted is some asymmetry to the vertical position of the arthroplasties, slightly higher on the left but unchanged on the last several years. Again noted are postop changes from bilateral inguinal hernia repairs. Procedure Note Sim Horan MD - 09/22/2021 Pelvis with 2 views left hip weightbearing DATE: 09/22/2021. INDICATION: Follow-up hip replacement. FINDINGS: Since 09/14/2020 bilateral total hip arthroplasties are again noted. No evidence of hardware failure or loosening. The left femoral components is elongated and unchanged. Again noted is some asymmetry to the vertical position of the arthroplasties, slightly higher on the left but unchanged on the last several years. Again noted are postop changes from bilateral inguinal hernia repairs. IMPRESSION 1. Unchanged intact bilateral total hip arthroplasties 2. 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 Glucose UA neg Bilirubin UA POCT neg Ketones UA POCT neg Specific [place] UA 1.015 Blood Urine POCT neg pH UA 6.0 Protein UA 0.15 g/l Urobilinogen UA 3.5 umol/l Nitrite UA neg WBC UA neg Urine URINE / Unknown 09/14/2021 Geo Gomez MD LAB - POINT OF CAR E ORDERABLES * URINALYSIS W/MICROSCOPIC NO CULTURE (02/22/2021 8:14 AM CDT) Only the most recent of4 resultswithin the time period is included. Color UA YELLOW YELLOW [facility] Appearance CLEAR CLEAR [facility] Specific [place] UA 1.013 1.001 - 1.035 [facility] pH UA 6.0 5.0 - 8.0 [facility] Glucose UA NEGATIVE NEGATIVE [facility] Bilirubin UA NEGATIVE NEGATIVE [facility] Ketone UA NEGATIVE NEGATIVE [facility] Blood UA NEGATIVE NEGATIVE [facility] Protein UA NEGATIVE NEGATIVE [facility] Nitrite UA NEGATIVE NEGATIVE [facility] Leukocyte UA NEGATIVE NEGATIVE [facility] WBC UA NONE SEEN < OR = 5 /HPF [facility] RBC UA NONE SEEN < OR = 2 /HPF [facility] Epithelial Cell UA NONE SEEN < OR = 5 /HPF [facility] Bacteria UA NONE SEEN NONE SEEN /HPF [facility] Hyaline Casts NONE SEEN NONE SEEN /LPF [facility] Comment: Test Performed at: [facility] [address] [place] [address] JOHN MATTHEWS DO,MPH 02/22/2021 8:14 AM CDT 02/22/2021 8:14 AM CDT Geo Gomez MD LAB - URINALYSIS O RDERABLES [facility] [address] [place] [id number] * CULTURE URINE (02/22/2021 8:14 AM CDT) Only the most recent of10 resultswithin the time period is included. Culture [facility]UST Comment: CULTURE, URINE, ROUTINE Micro Number: [id number] Test Status: Final Specimen Source: Urine Specimen Quality: Adequate Result: No Growth Test Performed at: [id number] [id number] WARREN RAMON MD Urine URINE SPECIMEN OBTAINED BY CLEAN CATCH PROCEDURE / Unknown 02/22/2021 8:14 AM CDT 02/22/2021 8:14 AM CDT Geo Gomez MD LAB - MICROBIOLOGY ORDERABLES [facility] [address] [place] [address] * IMAGING RADIOLOGY XRAY RESULTS ORDER (02/17/2021) Only the most recent of2 resultswithin the time period is included. Anatomical Region Laterality Modality Other 02/17/2021 Narrative 02/17/2021 Ordered by an unspecified provider. Scanned Document IMAGING * MO CYSTOURETHROSCOPY (01/12/2021 3:52 PM CDT) Narrative Geo Gomez MD - 01/12/2021 3:52 PM CDT Geo Gomez MD 01/12/2021 3:56 PM Cystoscopy procedure note Indication for Procedure: worsening LUTS after prior stricture repair and TURP (with known redundant tissue present). Recently had an episode of Gross hematuria Description: Pt placed on the procedure table in supine position. he was prepped/draped in standard fashion. Pt correctly identified and time out performed. A flexible cystoscope was introduced per urethra withthe following findings. Urethra: Normal caliber down to area or prior urethroplasty/dviu. Wide bore stricture present, but able to pass scope easily. No masses. Urethral sphincter with good coaptation Prostate - positive prostatic hyperplasia present, false passage present in mid prostate Verumontanum in normal position Bladder neck patent without contracture Trigone - UO's orthotopic bilaterally. Clear efflux seen from both ureteral orifices. Mucosa normal without lesion Bladder - normal mucosa without tumor/stone/erythema. No FB present. No trabeculation. No cellules or diverticula. No fistula. Scope was retroflexed to assess entire surface of bladder. IMPRESSION/PLAN: Recurrent stricture, but not of a size that should be impacting his urinary sx significantly. Large amount of redundant bph present even after his TURP. We discussed repeat turp, flomax, or proscar. He elects for medical therapy, will start flomax 0.4 mg daily and have him f/u with me in 2 months. He should have a ct urogram as well based on his GH and his smoking history - he would like it closer to home so I will have office staff help arrange if possible. Pt understands and agrees with plan. Geo Gomez MD Geo Gomez MD PROCEDURE/MINOR GUILLEN RGICAL ORDERABLES * CARDIAC EKG ORDER (09/11/2020 12:59 PM CDT) Only the most recent of7 resultswithin the time period is included. Narrative 09/11/2020 12:59 PM CDT Ordered by an unspecified provider. Scanned Document CARDIAC SERVICES ORD ERABLES * LARYNGEAL MASK AIRWAY (09/10/2020 11:46 AM CDT) Narrative Esthela Christianson DO - 09/10/2020 11:46 AM CDT Esthela Christianson DO 09/10/2020 11:46 AM LMA Placement Procedure/LDA Note: Patient Location: OR. LMA Insertion Date/Time: 09/10/2020 11:39 AM Procedure: LMA. Pretreatment: 100% O2 Induction: standard IV Patient position: sniffing. Mask Ventilation: not attempted Type: LMA Size: 5 Number of Attempts: 1. Placement verified by: CO2 monitor Dentition unchanged? Yes Procedure Start Time: 09/10/2020 11:39 AM. Staff Section Anesthesia Provider: Esthela Christianson DO, Performed the procedure Marylin Solano MD GENERAL ANESTHESIA ORDERABLES * URINALYSIS NO MICROSCOPIC NO CULTURE (09/07/2020 10:27 AM CDT) Only the most recent of2 resultswithin the time period is included. Color UA Yellow Straw, Yellow, Colorless 09/07/2020 11:47 AM T [facility] Clarity UA Clear Clear, Slt Cloudy 09/07/2020 11:47 AM T [facility] Specific [place] UA 1.011 1.005 - 1.030 09/07/2020 11:47 AM T [facility] pH UA 6.0 5.0 - 8.0 pH 09/07/2020 11:47 AM [facility] Protein UA Negative Negative mg/dL 09/07/2020 11:47 AM [facility] Glucose UA Negative Negative mg/dL 09/07/2020 11:47 AM [facility] Ketone UA Negative Negative mg/dL 09/07/2020 11:47 AM [facility] Bilirubin UA Negative Negative mg/dL 09/07/2020 11:47 AM [facility] Blood UA Negative Negative 09/07/2020 11:47 AM [facility] Nitrite UA Negative Negative 09/07/2020 11:47 AM [facility] Leukocyte Esterase Negative Negative 09/07/2020 11:47 AM [facility] Urobilinogen UA Negative Negative mg/dL 09/07/2020 11:47 AM [facility] Urine URINE SPECIMEN OBTAINED BY CLEAN CATCH PROCEDURE / Unknown Collection / Unknown 09/07/2020 10:27 AM T 09/07/2020 11:29 AM [facility] - 09/07/2020 11:47 AM [facility] Geo Gomez MD LAB - URINALYSIS O RDERABLES [facility] [address] [place] [phone], [facility] [phone] * CBC W/O DIFFERENTIAL (09/07/2020 10:20 AM CDT) Only the most recent of2 resultswithin the time period is included. WBC 6.0 3.5 - 10.5 10 3/uL 09/07/2020 10:45 AM [facility] RBC 5.31 4.30 - 5.70 10 6/uL 09/07/2020 10:45 AM [facility] Hemoglobin 15.5 13.5 - 17.5 g/dL 09/07/2020 10:45 AM [facility] Hematocrit 46.0 39.0 - 50.0 % 09/07/2020 10:45 AM [facility] MCV 86.6 81.0 - 97.0 fL 09/07/2020 10:45 AM [facility] MCH 29.2 28.0 - 34.0 pg 09/07/2020 10:45 AM [facility] MCHC 33.7 32.0 - 36.0 g/dL 09/07/2020 10:45 AM [facility] Platelet Count 218 150 - 400 10 3/uL 09/07/2020 10:45 AM [facility] RDW-SD 40.4 36.0 - 50.0 fL 09/07/2020 10:45 AM [facility] RDW-CV 12.8 11.2 - 14.8 % 09/07/2020 10:45 AM [facility] MPV 9.4 9.3 - 12.8 fL 09/07/2020 10:45 AM [facility] nRBC Absolute 0.00 0 10 3/uL 09/07/2020 10:45 AM [facility] nRBC Auto 0.0 0 /100 WBC 09/07/2020 10:45 AM [facility] Blood BLOOD SPECIMEN / Unknown Lab Venipuncture / Unknown 09/07/2020 10:20 AM CDT 09/07/2020 10:39 AM CDT Christiana Coronado PILLOW FILLER-STATIONARY ENGINEER APPRENTICE LAB - HEM ATOLOGY ORDERABLES [facility] [address] [place] [phone], [facility] [phone] * (ABNORMAL) BASIC METABOLIC PANEL (CALCIUM TOTAL) (09/07/2020 10:20 AM CDT) Only the most recent of8 resultswithin the time period is included. BUN 11 7 - 26 mg/dL 09/07/2020 11:06 AM [facility] Creatinine 0.9 0.6 - 1.2 mg/dL 09/07/2020 11:06 AM [facility] Sodium 139 136 - 145 mmol/L 09/07/2020 11:06 AM [facility] Potassium 4.6(H) 3.5 - 4.5 mmol/L 09/07/2020 11:06 AM [facility] Chloride 105 98 - 107 mmol/L 09/07/2020 11:06 AM [facility] CO2 24 22 - 29 mmol/L 09/07/2020 11:06 AM [facility] Glucose 109 70 - 115 mg/dL 09/07/2020 11:06 AM [facility] Calcium 9.1 8.4 - 10.2 mg/dL 09/07/2020 11:06 AM [facility] Anion Gap 15 8 - 18 09/07/2020 11:06 AM [facility] BUN/Creatinine Ratio 12 7 - 23 09/07/2020 11:06 AM [facility] Osmolality Calculated 288 270 - 300 mOsm/kg 09/07/2020 11:06 AM [facility] eGFR >60 >60 mL/min/1.7 3 m2 09/07/2020 11:06 AM [facility] Blood BLOOD SPECIMEN / Unknown Lab Venipuncture / Unknown 09/07/2020 10:20 AM CDT 09/07/2020 10:39 AM CDT Christiana Coronado PILLOW FILLER-STATIONARY ENGINEER APPRENTICE LAB - CASSIDY NATHANIEL ORDERABLES [facility] [address] [place] [phone], [facility] [phone] * EKG 12-LEAD (09/07/2020 10:06 AM CDT) Only the most recent of6 resultswithin the time period is included. Ventricular Rate 55 BPM [facility] Atrial Rate 55 BPM [facility] P-R Interval 198 ms [facility] QRS Duration ms 90 ms [facility] Q-T Interval ms 434 ms [facility] QTC Calculation (Bezet) 415 ms [facility] Calculated R Wallace 53 degrees [facility] Calculated T Wallace 62 degrees [facility] Interpretation EKG SINUS BRADYCARDIA OTHERWISE NORMAL ECG WHEN COMPARED WITH ECG OF 25-MAY-2020 08:44, NO SIGNIFICANT CHANGE WAS FOUND Confirmed by Dominic Stephenson ([id number]) on 09/10/2020 7:21:53 AM [facility] MUSE 09/07/2020 10:0 6 AM CDT 09/10/2020 7:21 AM CDT Christiana Coronado PILLOW FILLER-STATIONARY ENGINEER APPRENTICE ECG ORDER IZABELA [facility] M[facility] * SARS-COV-2 (COVID-19) PRE-SURICAL/PROCEDURE (09/07/2020 10:05 AM CDT) Only the most recent of2 resultswithin the time period is included. COVID-19 PCR Not detected Not detected 09/07/2020 8:[address] [facility] Microbiology SPECIMEN FROM NASOPHARYNGEAL STRUCTURE / Unknown Collection / Unknown 09/07/2020 10:05 AM CDT 09/07/2020 11:[address] [facility] - 09/07/2020 8:30 PM CDT This nucleic acid amplification assay performance was validated by [facility]. This test has been authorized by the Food and Drug administration (FDA)under an Emergency Use Authorization (EUA). This test has been validated in accordance with the FDA's guidance document Policy for Diagnostic Testing in Laboratories Certified to perform High Complexity Testing under CLIA prior to Emergency Use Authorization for Coronavirus Disease-2019 during the Public Health Emergency issued on August 03, 2019. FDA independent review of this validation is pending. This test is only authorized for the duration of time the declaration that circumstances exist justifying the authorization of emergency use of in vitro diagnostic tests for detection of SARS-CoV-2 virus and/or diagnosis of COVID-19 infection under section 564(b)(1) of the Act, 21 U.S.C 360bbb-3 (b)(1), unless the authorization is terminated or revoked sooner. Fact Sheets for this EUA assay are available upon request. Geo Gomez MD LAB - MICROBIOLOGY ORDERABLES [facility] [address] [place], [place] [address], [facility] [phone] * MO CYSTOURETHROSCOPY (08/11/2020 9:10 AM MANAGEMENT ASSOCIATE) Narrative Geo Gomez MD - 08/11/2020 9:10 AM MANAGEMENT ASSOCIATE Geo Gomez MD 08/11/2020 9:13 AM Cystoscopy procedure note Indication for Procedure: hx of difficult urethral stricture repair - leaking urine now and some intermittent stream. Emptying fine by pvr. Description: Pt placed on the procedure table in supine/lithotomy position. he was prepped/draped in standard fashion. Pt correctly identified and time out performed. A flexible cystoscope was introduced per urethra withthe following findings. Urethra: Normal caliber, no stricture until just distal to prostate. Some narrowing present here along with synechia present bridging urethra ventral to dorsally in the midline. Unable to pass scope due to this. Verumontanum visualized just on the other side of this. IMPRESSION: Urethral stricture PLAN: plan dviu/takedown of synechia. Orders placed. Geo Gomez MD Geo Gomez MD PROCEDURE/MINOR GUILLEN RGICAL ORDERABLES * MO MSR PVR U&/BLADD CAPCTY US NON (08/04/2020 10:19 AM MANAGEMENT ASSOCIATE) Narrative Darius Hall - 08/04/2020 10:19 AM MANAGEMENT ASSOCIATE Darius Hall 08/04/2020 10:19 AM 55 ML Geo Gomez MD PROCEDURE/MINOR GUILLEN RGICAL ORDERABLES * FL URETHROGRAM RETROGRADE (06/26/2020 10:30 AM MANAGEMENT ASSOCIATE) Anatomical Region Laterality Modality Abdomen, Pelvis Radiographic Marianela ging 06/26/2020 11:5 3 AM MANAGEMENT ASSOCIATE Impressions 06/26/2020 6:01 PM MANAGEMENT ASSOCIATE IMPRESSION: Minimal contained extravasation. Report dictated by Daniel Ngo DO (fixed income trading vice president). I, Dr. GRETEL MILES M.D. have personally reviewed and interpreted this examination/study. This report was electronically signed by GRETEL MILES M.D. on 06/26/2020 6:01 PM . Narrative 06/26/2020 6:01 PM MANAGEMENT ASSOCIATE EXAMINATION: FL URETHROGRAM RETROGRADE HISTORY: N99.114: Postprocedural male urethral stricture, urethroplasty on 06/08/2020 with end-to-end anastomosis COMPARISON: Retrograde urethrogram dated 06/19/2018. FLUOROSCOPY TIME: 18 seconds FINDINGS: Bilateral total hip arthroplasties are noted. Multiple metallic objects within the visualized pelvis are consistent with prior hernia repairs. A feeding tube was placed adjacent to the Flores catheter in the distal penile urethra, allowing opacification of the urethra. A small blind-ending collection is seen extending from the posterior bulbar urethra having a length of 6 mm. There is no noncontained extravasation. Widening of the prostatic urethra is consistent with the history of prior surgery for BPH. Procedure Note Gretel Miles MD - 06/26/2020 EXAMINATION: FL URETHROGRAM RETROGRADE HISTORY: N99.114: Postprocedural male urethral stricture, urethroplastyon 06/08/2020 with end-to-end anastomosis COMPARISON: Retrograde urethrogram dated 06/19/2018. FLUOROSCOPY TIME: 18 seconds FINDINGS: Bilateral total hip arthroplasties are noted. Multiple metallic objects within the visualized pelvis are consistent with prior hernia repairs. A feeding tube was placed adjacent to the Flores catheter in the distal penile urethra, allowing opacification of the urethra. A small blind-ending collection is seen extending from the posterior bulbar urethra having a length of 6 mm. There is no noncontained extravasation. Widening of the prostatic urethra is consistent with the history ofprior surgery for BPH. IMPRESSION: Minimal contained extravasation. Report dictated by Daniel Ngo DO (fixed income trading vice president). I, Dr. GRETEL MILES M.D. have personally reviewed and interpreted this examination/study. This report was electronically signed by GRETEL MILES M.D. on 06/26/2020 6:01 PM . Radha Da Silva PILLOW FILLER-CIVIL ENGINEERING ASSISTANT FLUOR OSCOPY ORDERABLES * PATHOLOGY TISSUE (06/08/2020 12:57 PM MANAGEMENT ASSOCIATE) Case Report Surgical Pathology Report Case: [id number] Authorizing Provider: Geo Gomez MD Collected: 06/08/2020 12:57 PM Ordering Location: [facility] OP Received: 06/08/2020 02:12 PM Pathologist: Yasemin Zuniga MD Specimen: Urethra, URETHRAL STRICTURE 06/11/2020 4:04 PM [facility]Y [facility] Final Diagnosis Urethra, stricture, excision (A): - Benign urothelial-lined mucosa with numerous thin-walled vascular structures (see comment) 06/11/2020 4:04 PM [facility] Microscopic Description and Comment Sections of the urethral stricture demonstrate urothelial-lined mucosa, in which the subepithelial tissues contain numerous, thin-walled vascular structures with scattered red blood cells. Immunostains for CD34 highlights the structures while D240 and ÁLVARO-3 highlight normal distributions of lymphatics and urothelial cells, respectively. The pattern suggests a potential benign varicosity or hemangioma. 06/11/2020 4:04 PM [facility] Clinical History The patient is a 69-year-old man with a history of recurrent urethral strictures. 06/11/2020 4:04 PM [facility] Gross Description Received in formalin, specimen A , a white stanford soft tissue fragment measuring 1.1 x 0.7 x 0.4 cm. Specimen is submitted in toto in cassette A1. RW 06/11/2020 4:04 PM [facility] Disclaimer The performance characteristics of all immunohistochemical and indirect immunofluorescence stains (if any) cited in this report were determined by the Histopathology Laboratory of [facility]. Some of these tests were developed by our own laboratory and have not been cleared or approved by the US Food and Drug Administration. The FDA does not require this test to go through premarket FDA review. These tests are used for clinical purposes. They should not be regarded as investigational or for research. This laboratory is certified under the Clinical Laboratory Improvement Amendments (CLIA) as qualified to perform high complexity clinical laboratory testing. This case has been personally reviewed and interpreted by the attending (teaching) pathologist. 06/11/2020 4:04 PM [facility] Embedded Images 06/11/2020 4:04 PM [facility] Biopsy, Excision ENTIRE URETHRA / Unknown 06/08/2020 12:57 PM MANAGEMENT ASSOCIATE 06/08/2020 2:12 PM MANAGEMENT ASSOCIATE Comment:Pre-op diagnosis: OTHER URETHRAL BULBOUS STRICTURE- MALE Geo Gomez MD LAB - PATHOLOGY/CY TOLOGY ORDERABLES [facility] [address] [place] [address], [facility] [phone] * ETT LINE PERFORMABLE (06/08/2020 10:30 AM MANAGEMENT ASSOCIATE) Narrative Herminio Johnson (Mateo), DONOVAN - 06/08/2020 10:30 AM MANAGEMENT ASSOCIATE Herminio Johnson), DONOVAN 06/08/2020 10:31 AM Endotracheal Tube Placement: Patient Location: OR. Intubation Event Date/Time: 06/08/2020 10:26 AM Procedure: intubation ([id number]). Procedure Section: Sedation: under general anesthesia. Indications for Airway Management: anesthesia Procedure pretreatments used? No Induction: standard IV Patient Position: sniffing Mask Ventilation: easy. Blade Type: Roberto Blade Size: 4 Laryngoscopy View: grade 1 (full cords) Intubation Adjuncts: stylet Tube: endotracheal tube Placement: oral Tube type: cuff - inflated Tube Size (MM): 8 Depth of Insertion (CM): 23 Measured From: lips Cuff volume (mL): 8 Cuff Inflated With: air Number of Attempts: 1. Ventilation between attempts: No. Placement Verified By: CO2 monitor, chest auscultation, bilateral breath sounds and direct visualization Tube secured with: adhesive tape. Dentition unchanged? Yes Difficult Airway? No. Procedure Start Time: 06/08/2020 10:26 AM. Staff Section Anesthesia Provider: Herminio Johnson), DONOVAN, Performed the procedure Brenna Maria MD GENERAL ANESTHESIA O RDERABLES * CBC WITH DIFFERENTIAL (05/25/2020 9:09 AM [facility]) Only the most recent of29 resultswithin the time period is included. WBC 6.2 3.5 - 10.5 10 3/uL 05/25/2020 9:40 AM [facility] RBC 5.54 4.30 - 5.70 10 6/uL 05/25/2020 9:40 AM [facility] Hemoglobin 16.6 13.5 - 17.5 g/dL 05/25/2020 9:40 AM [facility] Hematocrit 48.2 39.0 - 50.0 % 05/25/2020 9:40 AM [facility] MCV 87.0 81.0 - 97.0 fL 05/25/2020 9:40 AM [facility] MCH 30.0 28.0 - 34.0 pg 05/25/2020 9:40 AM [facility] MCHC 34.4 32.0 - 36.0 g/dL 05/25/2020 9:40 AM [facility] Platelet Count 219 150 - 400 10 3/uL 05/25/2020 9:40 AM [facility] RDW-SD 40.6 36.0 - 50.0 fL 05/25/2020 9:40 AM [facility] RDW-CV 12.9 11.2 - 14.8 % 05/25/2020 9:40 AM [facility] MPV 9.3 9.3 - 12.8 fL 05/25/2020 9:40 AM [facility] nRBC Absolute 0.00 0 10 3/uL 05/25/2020 9:40 AM [facility] nRBC Auto 0.0 0 /100 WBC 05/25/2020 9:40 AM [facility] Neutrophils % 61.7 35.0 - 70.0 % 05/25/2020 9:40 AM [facility] Lymphocytes % 25.2 19.7 - 55.1 % 05/25/2020 9:40 AM [facility] Monocytes % 8.1 3.0 - 15.0 % 05/25/2020 9:40 AM [facility] Eosinophils % 4.1 0.0 - 6.0 % 05/25/2020 9:40 AM [facility] Basophil % 0.7 0.0 - 1.5 % 05/25/2020 9:40 AM [facility] Neutrophils Absolute 3.8 1.6 - 7.0 10 3/uL 05/25/2020 9:40 AM [facility] Lymphocyte Absolute 1.6 0.8 - 2.9 10 3/uL 05/25/2020 9:40 AM [facility] Monocytes Absolute 0.50 0.14 - 0.66 10 3/uL 05/25/2020 9:40 AM MANAGEMENT ASSOCIATE [facility] Eosinophils Absolute 0.25 0.00 - 0.45 10 3/uL 05/25/2020 9:40 AM MANAGEMENT ASSOCIATE [facility] Basophils Absolute 0.04 0.00 - 0.06 10 3/uL 05/25/2020 9:40 AM MANAGEMENT ASSOCIATE [facility] Immature Granulocytes % 0.2 0.0 - 1.0 % 05/25/2020 9:40 AM [facility] Blood BLOOD SPECIMEN / Unknown Lab Venipuncture / Unknown 05/25/2020 9:09 AM MANAGEMENT ASSOCIATE 05/25/2020 9:33 AM MANAGEMENT ASSOCIATE Geo Gomez MD LAB - HEMATOLOGY O RDERABLES [facility] [address] [place] [address], [facility] [phone] * [place] CYSTOURETHROSCOPY (05/12/2020 10:05 AM MANAGEMENT ASSOCIATE) Narrative Geo Gomez MD - 05/12/2020 10:05 AM MANAGEMENT ASSOCIATE Geo Gomez MD 05/12/2020 10:07 AM Cystoscopy procedure note Indication for Procedure: known urethral stricture, check recurrence size Description: Pt placed on the procedure table in supine position. he was prepped/draped in standard fashion. Pt correctly identified and time out performed. A flexible cystoscope was introduced per urethra withthe following findings. Urethra: Normal caliber down to bulbar urethra, at which point he has a short approximately 6-8 fr stricture. Estimated length less than 1 cm, can see through to other side easily which appears to have normal caliber IMPRESSION: Urethral stricture PLAN: Plan open repair with EPA as scheduled Geo Gomez MD Geo Gomez MD PROCEDURE/MINOR GUILLEN RGICAL ORDERABLES * MO MSR PVR U&/BLADD CAPCTY US NON (04/21/2020 9:06 AM MANAGEMENT ASSOCIATE) Narrative Annmarie Pierre - 04/21/2020 9:06 AM MANAGEMENT ASSOCIATE Annmarie Pierre 04/21/2020 9:07 AM FPY=470 mL Geo Gomez MD PROCEDURE/MINOR GUILLEN RGICAL ORDERABLES * [place] BLOOD LEVEL (08/19/2019 11:05 AM CDT) [place] None Detected 0.0 - 0.9 ug/L 08/20/2019 5:07 PM CDT [facility] ([facility]) Comment: Occupational Exposure: ARVIN 1.0 Detection Limit = 1.0 Blood BLOOD SPECIMEN / Unknown Lab Venipuncture / Unknown 08/19/2019 11:05 AM CDT 08/19/2019 11:11 AM CDT Narrative [facility] ([facility]) - 08/20/2019 5:07 PM CDT Test(s) [id number], Plasma was developed and its performance characteristics determined by [facility]. It has not been cleared or approved by the Food and Drug Administration. Performed at: - [address] [id number] High Pressure Boiler Operator: Sherie Mon MD, Phone: [phone] Rishabh Maddox MD LAB - CHEMISTRY DEEPA JEFFERSON Performing Organization Address [facility] de Phone Number [facility] ([facility]) [address] [place] [address] * CHROMIUM BLOOD (08/19/2019 11:05 AM CDT) Chromium 1.1 0.1 - 2.1 ug/L 08/20/2019 4:09 PM CDT [facility] ([facility]) Comment:Detection Limit = 0. 1 Blood BLOOD SPECIMEN / Unknown Lab Venipuncture / Unknown 08/19/2019 11:05 AM CDT 08/19/2019 11:11 AM CDT Narrative [facility] ([facility]) - 08/20/2019 4:09 PM CDT Test(s) [id number], Plasma was developed and its performance characteristics determined by [facility]. It has not been cleared or approved by the Food and Drug Administration. Performed at: - [address] [id number] High Pressure Boiler Operator: Sherie Mon MD, Phone: [phone] Rishabh Maddox MD LAB - CHEMISTRY DEEPA JEFFERSON Performing Organization Address [facility] Co de Phone Number [facility] ([facility]) [address] [place] [address] * C-REACTIVE PROTEIN (08/19/2019 11:05 AM CDT) Only the most recent of5 resultswithin the time period is included. C-Reactive Protein <0.20 <=0.50 mg/dL 08/19/2019 12:35 PM CDT [facility] Blood BLOOD SPECIMEN / Unknown Lab Venipuncture / Unknown 08/19/2019 11:05 AM CDT 08/19/2019 11:11 AM CDT Rishabh Maddox MD LAB - CHEMISTRY ORDE RABLES Performing Organization Address City/[facility]/ZIP Co de Phone Number [facility] [address] [place] [address] * ERYTHROCYTE SEDIMENTATION RATE (08/19/2019 11:05 AM CDT) Only the most recent of5 resultswithin the time period is included. Erythrocyte Sedimentation Rate Automated 6 0 - 20 MM/HR 08/19/2019 11:28 AM CDT [facility] Blood BLOOD SPECIMEN / Unknown Lab Venipuncture / Unknown 08/19/2019 11:05 AM CDT 08/19/2019 11:11 AM CDT Rishabh Maddox MD LAB - HEMATOLOGY ORD ERABLES Performing Organization Address City/[facility]/ZIP Co de Phone Number [facility] [address] [place] [address] * LARYNGEAL MASK AIRWAY (08/01/2019 12:13 PM MANAGEMENT ASSOCIATE) Narrative Brina Baez Anes Asst - 08/01/2019 12:13 PM MANAGEMENT ASSOCIATE Brina Baez Anes Asst 08/01/2019 12:14 PM LMA Placement Procedure/LDA Note: Patient Location: OR. LMA Insertion Date/Time: 08/01/2019 12:06 PM Procedure: LMA. Induction: standard IV Patient position: supine. Mask Ventilation: not attempted Type: LMA Size: 5 (supreme) Placement verified by: bilateral breath sounds, chest auscultation and CO2 monitor Procedure Start Time: 08/01/2019 12:06 PM. Staff Section Anesthesia Provider: Brina Baez Anes Asst, Performed the procedure Philip Prabhakar MD GENERAL ANESTHESIA O RDERABLES * LAB RESULTS ORDER (05/15/2019 8:57 AM MANAGEMENT ASSOCIATE) Only the most recent of2 resultswithin the time period is included. Narrative 05/15/2019 8:57 AM MANAGEMENT ASSOCIATE Ordered by an unspecified provider. Scanned Document LAB - THERAPEUTIC DR AMATO MONITORING ORDERABLES * CT UROGRAM (04/15/2019 2:03 PM MANAGEMENT ASSOCIATE) Anatomical Region Laterality Modality Abdomen, Pelvis Computed Tomogra phy 04/15/2019 2:13 PM MANAGEMENT ASSOCIATE Impressions 04/15/2019 3:53 PM MANAGEMENT ASSOCIATE No acute intra-abdominal or pelvic abnormality is present, as described. There is a benign-appearing right renal cyst. The bladder and prostate gland are included visualized due to significant streak artifact from bilateral hip prostheses. Edited by Margaret Villanueva on 04/15/2019 2:32 PM Reading Radiologist: Nigel Hamilton MD on 04/15/2019 at 3:53 PM Narrative 04/15/2019 3:[address] ABDOMEN AND PELVIS HISTORY: Hematuria TECHNIQUE: Pre and postcontrast imaging and delayed images through the abdomen and pelvis were obtained prior to and following intravenous administration of 100 mL of Isovue-370. Comparison is made to CT pelvis dated 07/13/2017. Precontrast images demonstrate a hypodense lesion within the inferior pole of the right kidney measuring 3.3 cm in transverse dimensions with a Hounsfield unit attenuation measurement of approximately 0.9. No evidence of obstructive uropathy or renal calculi are present. There is likely a column of [place] on the left. No evidence of a solid or enhancing renal mass is present. The low-density lesion of the inferior pole of the right kidney fails to enhance significantly following intravenous contrast administration. Delayed postcontrast images demonstrate small calyces infundibular and renal pelves. The visualized ureters are normal. The bladder is poorly visualized due to significant streak artifact from bilateral hip prostheses. The prostate gland is not seen. The liver and gallbladder are normal. There is a likely cystic lesion of the posterior spleen. Spleen is otherwise normal. The pancreas and adrenal glands are unremarkable. Visualized large and small bowel appear grossly normal without free air or free fluid. No adenopathy is seen. The lung bases are clear. Procedure Note Nigel Hamilton MD - 04/15/2019 CT ABDOMEN AND PELVIS HISTORY: Hematuria TECHNIQUE: Pre and postcontrast imaging and delayed images through the abdomen and pelvis were obtained prior to and following intravenous administration of 100 mL of Isovue-370. Comparison is made to CT pelvis dated 07/13/2017. Precontrast images demonstrate a hypodense lesion within the inferior pole of the right kidney measuring 3.3 cm in transverse dimensions with a Hounsfield unit attenuation measurement of approximately 0.9. No evidence of obstructive uropathy or renal calculi are present. There is likely a column of [place] on the left. No evidence of a solid or enhancing renal mass is present. The low-density lesion of the inferior pole of the right kidney fails to enhance significantly following intravenous contrast administration. Delayed postcontrast images demonstrate small calyces infundibular and renal pelves. The visualized ureters are normal. The bladder is poorly visualized due to significant streak artifact from bilateral hip prostheses. The prostate gland is not seen. The liver and gallbladder are normal. There is a likely cystic lesion of the posterior spleen. Spleen is otherwise normal. The pancreas and adrenal glands are unremarkable. Visualized large and small bowel appear grossly normal without free air or free fluid. No adenopathy is seen. The lung bases are clear. IMPRESSION No acute intra-abdominal or pelvic abnormality is present, as described. There is a benign-appearing right renal cyst. The bladder and prostate gland are included visualized due to significant streak artifact from bilateral hip prostheses. Edited by Margaret Villanueva on 04/15/2019 2:32 PM Reading Radiologist: Nigel Hamilton MD on 04/15/2019 at 3:53 PM Geo Gomez MD [address] ORDERABLES * CREATININE BLOOD - POINT OF CARE (IP) (04/15/2019 1:29 PM MANAGEMENT ASSOCIATE) Creatinine POCT 0.85 0.7 - 1.2 mg/dL [facility] POCT TESTING QC Verified Yes Yes [facility] POC T TESTING Blood BLOOD SPECIMEN / Unknown 04/15/2019 1:29 PM MANAGEMENT ASSOCIATE Geo Gomez MD LAB - POINT OF CAR E ORDERABLES Performing Organization Address [facility] Co de Phone Number [facility] POCT TESTING [address] [place] [address] * PROSTATE SPECIFIC ANTIGEN SCREEN (04/09/2019 10:16 AM MANAGEMENT ASSOCIATE) Only the most recent of4 resultswithin the time period is included. Pathologist [facility] PSA 1.3 < OR = 4.0 ng/mL [facility] Comment: The total PSA value from this assay system is standardized against the WHO standard. The test result will be approximately 20% lower when compared to the equimolar-standardized total PSA (Naima [place]). Comparison of serial PSA results should be interpreted with this fact in mind. This test was performed using the Siemens chemiluminescent method. Values obtained from different assay methods cannot be used interchangeably. PSA levels, regardless of value, should not be interpreted as absolute evidence of the presence or absence of disease. Test Performed at: [facility] [address] [place] [address] JOHN MATTHEWS DO,MPH 04/09/2019 10:1 6 AM MANAGEMENT ASSOCIATE 04/10/2019 8:28 AM MANAGEMENT ASSOCIATE Geo Gomez MD LAB - CHEMISTRY OR DERABLES Performing Organization Address [facility] Co de Phone Number [facility] [address] [place] [address] * (ABNORMAL) LACTIC ACID BLOOD (09/06/2018 4:23 AM CDT) Only the most recent of5 resultswithin the time period is included. Pathologist [facility] Lactic Acid 0.5(L) 0.7 - 2.1 mmol/L 09/06/2018 5:04 AM CDT [facility] Blood BLOOD SPECIMEN / Unknown Lab Venipuncture / Unknown 09/06/2018 4:23 AM CDT 09/06/2018 4:28 AM CDT Gretel Lopez MD LAB - CHEMISTRY DEEPA JEFFERSON Performing Organization Address City/[facility]/ZIP Co de Phone Number [facility] [address] [place] [id number] * XR FEMUR TRAUMA 2 VW LEFT (09/06/2018 12:45 AM CDT) Only the most recent of2 resultswithin the time period is included. Anatomical Region Laterality Modality Lower Extremity Radiographic Marianela ging 09/06/2018 7:11 AM CDT Impressions 09/06/2018 8:57 AM CDT Postop changes. Edited by Tamy Hardy on 09/06/2018 8:19 AM Reading Radiologist: Erwin Bonilla MD on 09/06/2018 at 8:57 AM Narrative 09/06/2018 8:57 AM CDT LEFT FEMUR HISTORY: Postop. Views of the femur demonstrate a total hip prosthesis in satisfactory position. Metallic densities project over the left groin. Procedure Note Erwin Bonilla MD - 09/06/2018 LEFT FEMUR HISTORY: Postop. Views of the femur demonstrate a total hip prosthesis in satisfactory position. Metallic densities project over the left groin. IMPRESSION Postop changes. Edited by Tamy Hardy on 09/06/2018 8:19 AM Reading Radiologist: Erwin Bonilla MD on 09/06/2018 at 8:57 AM Aleksandr Levin PA-C DIAGNOSTIC IMAGING ORDERABLES * COMPREHENSIVE METABOLIC PANEL (09/05/2018 10:07 PM CDT) Only the most recent of9 resultswithin the time period is included. Glucose 102 74 - 106 mg/dL 09/05/2018 10:27 PM CDT [facility] Sodium 138 136 - 145 mmol/L 09/05/2018 10:27 PM CDT [facility] Potassium 4.1 3.5 - 5.1 mmol/L 09/05/2018 10:27 PM CDT [facility] Chloride 104 98 - 107 mmol/L 09/05/2018 10:27 PM CDT [facility] CO2 26 22 - 31 mmol/L 09/05/2018 10:27 PM CDT [facility] Calcium 8.7 8.5 - 10.1 mg/dL 09/05/2018 10:27 PM CDT [facility] Anion Gap 8 8 - 16 mmol/L 09/05/2018 10:27 PM CDT [facility] BUN 15 7 - 21 mg/dL 09/05/2018 10:27 PM CDT [facility] Creatinine 0.89 0.50 - 1.30 mg/dL 09/05/2018 10:27 PM T [facility] Alkaline Phosphatase 125 38 - 126 U/L 09/05/2018 10:27 PM CDT [facility] ALT 22 13 - 61 U/L 09/05/2018 10:27 PM CDT [facility] AST 28 5 - 40 U/L 09/05/2018 10:27 PM T [facility] Protein Total 7.5 6.4 - 8.2 gm/dL 09/05/2018 10:27 PM T [facility] Albumin 3.9 3.4 - 5.0 gm/dL 09/05/2018 10:27 PM T [facility] Bilirubin Total 0.5 0.2 - 1.0 mg/dL 09/05/2018 10:27 PM [facility] eGFR by MDRD >60 >60 mL/min/1.7 3m2 09/05/2018 10:27 PM T [facility] eGFR by MDRD >60 >60 mL/min/1.7 3m2 09/05/2018 10:27 PM CDT [facility] Blood BLOOD SPECIMEN / Unknown Venipuncture / Unknown 09/05/2018 10:07 PM CDT 09/05/2018 10:09 PM CDT Natalie Garner MD LAB - CHEMISTRY [facility] Organization Address City/State/ZIP Co de Phone Number [facility] [address] [place] [address] * TYPE + SCREEN PANEL (07/05/2018 10:21 AM MANAGEMENT ASSOCIATE) Only the most recent of5 resultswithin the time period is included. Antibody Screen NEG 9 11:42 AM [facility] B[facility] LAB ABO Rh O POS 07/05/2018 11:42 AM [facility] B[facility]OD [facility] LAB Blood Bank BLOOD SPECIMEN / Unknown Lab Venipuncture / Unknown 07/05/2018 10:21 AM MANAGEMENT ASSOCIATE 07/05/2018 10:31 AM MANAGEMENT ASSOCIATE Christiana Coronado APRN-STATIONARY ENGINEER APPRENTICE LAB - BLO OD BANK ORDERABLES [facility] BLOOD BANK LAB [address] [place] [address], [facility] * FL UROGRAM RETROGRADE (06/19/2018 9:45 AM MANAGEMENT ASSOCIATE) Anatomical Region Laterality Modality Abdomen Radiographic Mraianela ging, X-Ray Angiography 06/19/2018 9:56 AM MANAGEMENT ASSOCIATE Impressions 06/19/2018 10:03 AM MANAGEMENT ASSOCIATE IMPRESSION: Stricture at the junction of the bulbous and membranous urethra. Dictated by Nigel Hebert MD (fixed income trading vice president). Dr. KALINA Kovacs have personally reviewed and interpreted this examination/study. This report was electronically signed by KALINA TAMEZ on 06/19/2018 10:03 AM . Narrative 06/19/2018 10:03 AM MANAGEMENT ASSOCIATE EXAMINATION: FL UROGRAM RETROGRADE HISTORY: 67-year-old with incidentally discovered urethral stricture on cystoscopy. FLUOROSCOPY TIME: 12 seconds FINDINGS: No prior study is available for comparison at the time of this dictation. An 8 British catheter was placed in the navicular fossa in a sterile fashion. The urethra was filled with approximately 15 mL of Isovue-370 in a retrograde fashion through the catheter. The urethral lumen was normal in size. A stricture is seen at the junction of the bulbous and the membranous urethra, which does not appear to be obstructive. No contrast extravasation was identified in the penile or bulbar urethra. Procedure Note Kalina Tamez DO - 06/19/2018 EXAMINATION: FL UROGRAM RETROGRADE HISTORY: 67-year-old with incidentally discovered urethral stricture on cystoscopy. FLUOROSCOPY TIME: 12 seconds FINDINGS: No prior study is available for comparison at the time of this dictation. An 8 British catheter was placed in the navicular fossa in a sterile fashion. The urethra was filled with approximately 15 mL of Isovue-370in a retrograde fashion through the catheter. The urethral lumen was normal in size. A stricture is seen at the junction of the bulbous and the membranous urethra, which does not appear to be obstructive. No contrast extravasation was identified in the penile or bulbar urethra. IMPRESSION: Stricture at the junction of the bulbous and membranous urethra. Dictated by Nigel Hebert MD (fixed income trading vice president). I, Dr. KALINA TAMEZ have personally reviewed and interpreted this examination/study. This report was electronically signed by KALINA TAMEZ on 06/19/2018 10:03 AM . Shauna Kerr [facility] FLUOROSCOPY O RDERABLES * [place] CYSTOURETHROSCOPY (05/17/2018 1:18 PM MANAGEMENT ASSOCIATE) Narrative Shauna Kerr APRN-CNP - 05/17/2018 1:18 PM MANAGEMENT ASSOCIATE Shauna Kerr APRN-CNP 05/17/2018 1:18 PM Cystoscopy: Patient's perineum and genitalia were prepped and draped in the usual sterile fashion. Lidocaine urojet was injected into the urethra and given sufficient time to take effect. A flexible cystoscope was advanced into the urethra and a stricture was noted and the scope was no longer able to be advanced. Patient tolerated the procedure well. It was explained to the patient that he has a stricture along the urethra and he will need imaging to determine how long it is. I was not able to examine the rest of the urethra, sphincter, prostate or bladder. He will follow up with Dr. Gomez for treatment of the stricture. If the hematuria/her urinary difficulties persist after the treatment of this stricture, we can revisit the possibility of his prostate needing furhter re-treatment for prostate enlargement. (TURP 2011). GIAN Wetzel 05/17/2018 1:18 PM Shauna Kerr [facility] PROCEDURE/MIN OR SURGICAL ORDERABLES * URINALYSIS MICROSCOPIC ONLY REFLEXED (05/10/2018 10:19 AM MANAGEMENT ASSOCIATE) WBC UA None seen 0 - 5 /hpf [facility] INSURANCE BILL RBC UA None seen 0 - 2 /hpf [facility] INSURANCE BILL Epithelial Cells (non renal) 0-10 0 - 10 /hpf [facility] INSURANCE BILL Epithelial Cells (renal) NOT NEEDED [facility] INSURANCE BILL Comment:Ancillary determined the test is not needed Casts ua NOT NEEDED [facility] INSURANCE BILL Comment:Ancillary determined the test is not needed Casts UA NOT NEEDED [facility] INSURANCE BILL Comment:Ancillary determined the test is not needed Crystals UA NOT NEEDED [facility] INSURANCE BILL Comment:Ancillary determined the test is not needed Crystals UA NOT NEEDED [facility] INSURANCE BILL Comment:Ancillary determined the test is not needed Mucus UA Present Not Estab. [facility] INSURANCE BILL Bacteria UA None seen None seen/Few [facility] INSURANCE BILL Yeast UA NOT NEEDED [facility] INSURANCE BILL Comment:Ancillary determined the test is not needed Trichomonas UA NOT NEEDED [facility] INSURANCE BILL Comment:Ancillary determined the test is not needed Comment Urine NOT NEEDED [facility] INSURANCE BILL Comment:Ancillary determined the test is not needed 05/10/2018 10:1 9 AM MANAGEMENT ASSOCIATE 05/10/2018 Narrative Resulting Agency Comment [facility] [address] [facility] [phone] Shauna Kerr PILLOW FILLER-CIVIL ENGINEERING ASSISTANT LAB - URINALY SIS ORDERABLES [facility] INSURANCE BILL [address] [place] [address] * THERAPY REPORT (01/11/2018 10:37 AM CDT) Narrative 01/11/2018 10:37 AM CDT Ordered by an unspecified provider. Scanned Document SCANNING ONLY * [place] MSR PVR U&/BLADD CAPCTY US NON (12/15/2017 10:02 AM CDT) Narrative Esthela Rahman, - 12/15/2017 10:02 AM CDT Esthela Rahman DO 12/15/2017 10:02 AM 0cc per bladder scanner. Esthela Rahman DO 12/15/2017 10:02 AM Esthela Rahman DO PROCEDURE/MINOR GUILLEN RGICAL ORDERABLES * XR HIP 2+ VW LEFT [[id number]] (10/12/2017 10:53 AM CDT) Anatomical Region Laterality Modality Pelvis, Lower Extremity Radiogra phic Imaging 10/12/2017 11:5 9 AM CDT Impressions 10/12/2017 12:02 PM CDT 1. Unchanged position or alignment of left total hip arthroplasty. 2. Developing soft tissue calcification or heterotopic ossification adjacent to the proximal left femur Narrative 10/12/2017 12:02 PM CDT Pelvis with left hip, 2 views DATE: 10/12/2017. INDICATION: Left hip pain and postop. Findings: Since 08/11/2017 a left total hip arthroplasty with an elongated femoral component is unchanged in position or alignment. New callus or possibly heterotopic ossification has developed at the osseous metal interface of the femoral component. 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 The acetabular cup and anchors appear intact. Incidentally noted are numerous wire anchors bilaterally in the pelvis from prior hernia repair. There is a partially seen right total hip arthroplasty. Procedure Note Sim Horan MD - 10/12/2017 Pelvis with left hip, 2 views DATE: 10/12/2017. INDICATION: Left hip pain and postop. Findings: Since 08/11/2017 a left total hip arthroplasty with an elongated femoral component is unchanged in position or alignment. New callus or possibly heterotopic ossification has developed at the osseous metal interface of the femoral component. 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 The acetabular cup and anchors appear intact. Incidentally noted are numerous wire anchors bilaterally in the pelvis from prior hernia repair. There is a partially seen right total hip arthroplasty. IMPRESSION 1. Unchanged position or alignment of left total hip arthroplasty. 2. Developing soft tissue calcification or heterotopic ossification adjacent to the proximal left femur Dago Iraheta MD DIAGNOSTIC IMAGING ORDERABLES * CARDIAC RHYTHM STRIP ORDER (08/16/2017 10:38 PM CDT) Only the most recent of2 resultswithin the time period is included. Narrative 08/16/2017 10:38 PM CDT Ordered by an unspecified provider. Scanned Document CARDIAC SERVICES ORD ERABLES * (ABNORMAL) RENAL FUNCTION PANEL (08/15/2017 3:52 AM CDT) Only the most recent of12 resultswithin the time period is included. Glucose 117(H) 74 - 106 mg/dL 08/15/2017 4:42 AM CDT [facility] Sodium 135(L) 136 - 145 mmol/L 08/15/2017 4:42 AM CDT [facility] Potassium 3.9 3.5 - 5.1 mmol/L 08/15/2017 4:42 AM CDT [facility] Chloride 100 98 - 107 mmol/L 08/15/2017 4:42 AM CDT [facility] CO2 28 22 - 31 mmol/L 08/15/2017 4:42 AM CDT [facility] Calcium 8.1(L) 8.5 - 10.1 mg/dL 08/15/2017 4:42 AM CDT [facility] Anion Gap 7(L) 8 - 16 mmol/L 08/15/2017 4:42 AM CDT [facility] BUN 5(L) 7 - 21 mg/dL 08/15/2017 4:42 AM CDT [facility] Creatinine 0.70 0.50 - 1.30 mg/dL 08/15/2017 4:42 AM CDT [facility] Albumin 2.1(L) 3.4 - 5.0 gm/dL 08/15/2017 4:42 AM CDT [facility] Phosphorus 4.0 2.5 - 4.9 mg/dL 08/15/2017 4:42 AM CDT [facility] eGFR by MDRD >60 >60 mL/min/1.7 3m2 08/15/2017 4:42 AM CDT [facility] eGFR by MDRD >60 >60 mL/min/1.7 3m2 08/15/2017 4:42 AM CDT [facility] Blood BLOOD SPECIMEN / Unknown Lab Venipuncture / Unknown 08/15/2017 3:52 AM CDT 08/15/2017 4:12 AM CDT Sara Hawthorne MD LAB - CHEMISTRY OR DERABLES Performing Organization Address [facility]/State/[facility] Co de Phone Number [facility] [address] [place] [address] * CULTURE BLOOD (08/14/2017 11:22 AM CDT) Only the most recent of4 resultswithin the time period is included. Culture No growth day 5 BABITA 08/19/2017 2:00 PM CDT [facility] Blood PERIPHERAL BLOOD / Unknown Lab Venipuncture / Unknown 08/14/2017 11:22 AM CDT 08/14/2017 11:29 AM CDT Aniruddh Osvaldo MD LAB - MICROBIOLOGY O RDERABLES [facility] [address] [place], [address] [phone] * (ABNORMAL) IRON + TRANSFERRIN PANEL (08/14/2017 3:38 AM CDT) Iron 21(L) 65 - 170 ug/dL 08/14/2017 6:31 AM CDT [facility] Transferrin 140(L) 215 - 365 mg/dL 08/14/2017 6:31 AM CDT [facility] TIBC Calculated 175(L) 240 - 450 mg/dL 08/14/2017 6:31 AM CDT [facility] Iron Saturation % 12(L) 20 - 50 % 08/14/2017 6:31 AM CDT [facility] Blood BLOOD SPECIMEN / Unknown Lab Venipuncture / Unknown 08/14/2017 3:38 AM CDT 08/14/2017 6:16 AM CDT Suzy Coley MD LAB - CHEMISTRY DEEPA JEFFERSON Performing Organization Address [facility] Co de Phone Number [facility] [address] [place], [place] [phone] * FERRITIN (08/14/2017 3:38 AM CDT) Pathologist [facility] Ferritin 99 22 - 322 ng/mL 08/14/2017 6:31 AM CDT [facility] Blood BLOOD SPECIMEN / Unknown Lab Venipuncture / Unknown 08/14/2017 3:38 AM CDT 08/14/2017 6:16 AM CDT Suzy Coley MD LAB - CHEMISTRY DEEPA JEFFERSON Performing Organization Address City/[facility]/ZIP Co de Phone Number [facility] [address] [place] [address] * OCCULT BLOOD FECES (08/12/2017 9:56 AM MANAGEMENT ASSOCIATE) Pathologist [facility] Occult Blood Negative Negative 08/12/2017 10:46 AM MANAGEMENT ASSOCIATE [facility] Stool STOOL SPECIMEN / Unknown Collection / Unknown 08/12/2017 9:56 AM MANAGEMENT ASSOCIATE 08/12/2017 10:05 AM MANAGEMENT ASSOCIATE Josy Kang MD LAB - BODY FLUID ORD ERABLES [facility] [address] [place] [address] * PREPARE (CROSSMATCH) RBC UNIT(S), 2 Units (08/11/2017 7:15 AM MANAGEMENT ASSOCIATE) Only the most recent of4 resultswithin the time period is included. Product Code [id number] [facility] Unit Donor # [id number] S [facility] ABO Donor Type O [facility] Rh Type Unit POS [facility] Unit Status Ret'd HC BLO OD BANK LAB ABO Rh Type Unit OPOS [facility] Donor Unit Expiration Date [facility] Blood Type Barcode 5100 [facility] Product Code [id number] [facility] Unit Donor # [id number] S [facility] BLOOD [facility] LAB ABO Donor Type O [facility] Rh Type Unit POS [facility] BL OOD BANK LAB Unit Status Ret'd [facility] BLO OD [facility]ANK LAB ABO Rh Type Unit OPOS [facility] Donor Unit Expiration Date [facility] Blood Type Barcode 5100 [facility] Blood Bank BLOOD SPECIMEN / Unknown 08/11/2017 7:15 AM MANAGEMENT ASSOCIATE Rishabh Maddox MD LAB - BLOOD BANK ORD ERABLES [facility] [address] [phone] * MAGNESIUM BLOOD (08/10/2017 4:15 AM MANAGEMENT ASSOCIATE) Only the most recent of7 resultswithin the time period is included. Magnesium 1.9 1.6 - 2.6 mg/dL 08/10/2017 7:08 AM MANAGEMENT ASSOCIATE [facility] Blood BLOOD SPECIMEN / Unknown 08/10/2017 4:15 AM MANAGEMENT ASSOCIATE 08/10/2017 7:01 AM MANAGEMENT ASSOCIATE Jeremy Tripp MD LAB - CHEMISTRY DEEPA JEFFERSON [facility] [address] [place] [address] * CULTURE WOUND+GRAM STAIN (08/08/2017 8:53 AM MANAGEMENT ASSOCIATE) Only the most recent of2 resultswithin the time period is included. Culture No growth BABITA 08/11/2017 1:[address] [facility] Gram Stain Moderate Red blood cells 08/11/2017 1:15 PM MANAGEMENT ASSOCIATE [facility] Gram Stain No organisms seen 08/11/2017 1:[address] [facility] Microbiology ENTIRE HIP REGION / Unknown Collection / Unknown 08/08/2017 8:53 AM MANAGEMENT ASSOCIATE 08/08/2017 9:14 AM MANAGEMENT ASSOCIATE Narrative [facility] - 08/11/2017 1:15 PM MANAGEMENT ASSOCIATE Surgical Description: Left Hip Wound Culture Rishabh Maddox MD LAB - MICROBIOLOGY Jonny LOREDO Performing Organization Address [facility]/ZIP Co de Phone Number [facility] [address] [place] [address] [place] [address] * CULTURE AFB+SMEAR (08/08/2017 8:53 AM MANAGEMENT ASSOCIATE) Only the most recent of3 resultswithin the time period is included. Culture No acid-fast bacillus isolated 09/18/2017 9:[address] [facility] AFB Smear No acid-fast bacilli seen 09/18/2017 9:48 AM CDT [facility] Microbiology ENTIRE HIP REGION / Unknown Collection / Unknown 08/08/2017 8:53 AM MANAGEMENT ASSOCIATE 08/08/2017 9:14 AM MANAGEMENT ASSOCIATE Narrative [facility] - 09/18/2017 9:48 AM CDT Surgical Description: Left Hip Wound Culture Rishabh Maddox MD LAB - MICROBIOLOGY O GERTRUDE Performing Organization Address City/[facility]/ZIP Co de Phone Number [facility] [address] [place] [address], [facility] [phone] * CULTURE ANAEROBE (08/08/2017 8:53 AM MANAGEMENT ASSOCIATE) Only the most recent of3 resultswithin the time period is included. Pathologist [facility] Culture No anaerobic organisms isolated BABITA 08/15/2017 2:[address] [facility] Microbiology ENTIRE HIP REGION / Unknown Collection / Unknown 08/08/2017 8:53 AM MANAGEMENT ASSOCIATE 08/08/2017 9:14 AM MANAGEMENT ASSOCIATE Narrative [facility] - 08/15/2017 2:51 PM CDT Surgical Description: Left Hip Wound Culture Rishabh Maddox MD LAB - MICROBIOLOGY O RDERABLES [facility] [address] [place], [place] [address] [phone] * VANCOMYCIN LEVEL TROUGH (08/05/2017 11:29 PM MANAGEMENT ASSOCIATE) [facility] Vancomycin Trough 10.8 10.0 - 20.0 ug/mL 08/06/2017 12:[address] [facility] Blood BLOOD SPECIMEN / Unknown Lab Venipuncture / Unknown 08/05/2017 11:29 PM MANAGEMENT ASSOCIATE 08/05/2017 11:45 PM MANAGEMENT ASSOCIATE Shamir Domingo DO LAB - CHEMISTRY DEEPA JEFFERSON [facility] [address] [place] [address] * (ABNORMAL) DRUG SCREEN TOX URINE PANEL (08/04/2017 11:22 PM MANAGEMENT ASSOCIATE) Pathologist [facility] Amphetamines Screen Urine Not Detected Not Detected 08/05/2017 12:[address] [facility] Barbiturates Screen Urine Not Detected Not Detected 08/05/2017 12:[address] [facility] Benzodiazepines Screen Urine Detected(A) Not Detected 08/05/2017 12:[address] [facility] Cannabinoids Screen Urine Not Detected Not Detected 08/05/2017 12:[address] [facility] Cocaine Screen Urine Not Detected Not Detected 08/05/2017 12:[address] [facility] Methadone Screen Urine Not Detected Not Detected 08/05/2017 12:[address] [facility] Opiate Screen Urine Detected(A) Not Detected 08/05/2017 12:[address] [facility] Phencyclidine Screen Urine Not Detected Not Detected 08/05/2017 12:[address] [facility] Urine URINE / Unknown Collection / Unknown 08/04/2017 11:22 PM MANAGEMENT ASSOCIATE 08/04/2017 11:36 PM MANAGEMENT ASSOCIATE Narrative [facility] - 08/05/2017 12:22 AM MANAGEMENT ASSOCIATE This drug screen is designed for MEDICAL purposes only. It is not to be used for legal purposes, including but not limited to worker's comp, police investigations, occupational issues, child custody, etc. Any positive result is only presumptive and must be confirmed with a separate confirmatory test ordered by the physician. Drug Screening Test Cutoff Values: AMPHETAMINES 1000 ng/mL BARBITURATES 200 ng/mL BENZODIAZEPINES 200 ng/mL CANNABINOIDS(THC) 50 ng/mL COCAINE 300 ng/mL METHADONE 300 ng/mL OPIATES 300 ng/mL PHENCYCLIDINE(PCP)25 ng/mL Maribell Manjarrez MD LAB - URINE ASSISTANT CASINO SHIFT MANAGER RY ORDERABLES Performing Organization Address [facility] Co de Phone Number [facility] [address] [place] [phone] * (ABNORMAL) HGB HCT PANEL (08/04/2017 1:38 PM MANAGEMENT ASSOCIATE) Only the most recent of4 resultswithin the time period is included. Hemoglobin 9.4(L) 12.0 - 17.6 gm/dL 08/04/2017 1:[address] [facility] Hematocrit 29.7(L) 35.2 - 51.7 % 08/04/2017 1:[address] [facility] Blood BLOOD SPECIMEN / Unknown Venipuncture / Unknown 08/04/2017 1:38 PM MANAGEMENT ASSOCIATE 08/04/2017 1:53 PM MANAGEMENT ASSOCIATE Rishabh Maddox MD LAB - HEMATOLOGY ORD ERABLES Performing Organization Address [facility] Co de Phone Number [facility] [address] [place] [phone] * CULTURE FUNGUS OTHER+FUNGUS SMEAR (08/04/2017 12:49 PM MANAGEMENT ASSOCIATE) Only the most recent of2 resultswithin the time period is included. Culture No fungus isolated BABITA 08/27/2017 4:[address] [facility] Fungus Smear No yeast or hyphae seen 08/27/2017 4:[address] [facility] Fluid BODY FLUID SPECIMEN / Unknown Collection / Unknown 08/04/2017 12:49 PM MANAGEMENT ASSOCIATE 08/04/2017 1:07 PM [facility] Narrative [facility] - 08/27/2017 4:36 AM CDT Surgical Description: Post Irrigation Cultures Left Hip Rishabh Maddox MD LAB - MICROBIOLOGY O RDERABLES [facility] [address] [place] [address], [facility] [phone] * (ABNORMAL) CULTURE FLUID+GRAM STAIN (08/04/2017 12:49 PM MANAGEMENT ASSOCIATE) Only the most recent of2 resultswithin the time period is included. Culture Rare Staphylococcus aureus(AA) BABITA 08/07/2017 11:53 AM [facility] Gram Stain Light Red blood cells 08/07/2017 11:53 AM [facility] Gram Stain No organisms seen 018 11:53 AM [facility] Fluid BODY FLUID SPECIMEN / Unknown Collection / Unknown 08/04/2017 12:49 PM MANAGEMENT ASSOCIATE 08/04/2017 1:07 PM [facility] Narrative [facility] - 08/07/2017 11:53 AM MANAGEMENT ASSOCIATE Surgical Description: Post Irrigation Cultures Left Hip Organism Antibiotic Method Susceptibility Staphylococcus aureus Ciprofloxacin BABITA <=0.5 ug/mL: Susceptible Staphylococcus aureus Clindamycin BABITA 0.25 ug/mL: Susceptible Staphylococcus aureus Doxycycline BABITA <=0.5 ug/mL: Susceptible Staphylococcus aureus Erythromycin BABITA <=0.25 ug/mL: Susceptible Staphylococcus aureus Gentamicin BABITA <=0.5 ug/mL: Susceptible Staphylococcus aureus Inducible Clindamy sharda Resistance BABITA NEG ug/mL: Neg Staphylococcus aureus Levofloxacin BABITA 0.25 ug/mL: Susceptible Staphylococcus aureus Linezolid BABITA 2 ug/mL: Susceptible Staphylococcus aureus Oxacillin BABITA 0.5 ug/mL: Susceptible Staphylococcus aureus Tetracycline BABITA <=1 ug/mL: Susceptible Staphylococcus aureus Trimethoprim-sulfa methoxa zole BABITA <=10 ug/mL: Susceptible Staphylococcus aureus Vancomycin BABITA <=0.5 ug/mL: Susceptible Comment:Methicillin-suscepti ble Staphylococci are susceptible to oxacillin, nafcillin, cloxacillin,dicloxacillin, beta lactam/betalactamase inhibitor combinations, cephalosporins including cefazolin and carbapenems. Rishabh Maddox MD LAB - MICROBIOLOGY O RDERABLES [facility] [address] [place] [address], [facility] [phone] * (ABNORMAL) DIFFERENTIAL MANUAL (08/04/2017 3:44 AM MANAGEMENT ASSOCIATE) WBC Auto 15.5 x10E9/L 08/04/2017 5:57 AM MANAGEMENT ASSOCIATE [facility] WBC Corrected 4.4 - 10.7 x10E9/L 08/04/2017 5:57 AM MANAGEMENT ASSOCIATE [facility] nRBC /100 WBC 08/04/2017 5:[address] [facility] Neutrophil % Manual 78(H) 44 - 73 % 08/04/2017 5:57 AM MANAGEMENT ASSOCIATE [facility] Lymphocytes % Manual 4(L) 20 - 43 % 08/04/2017 5:[address] [facility] Monocytes % Manual 6 5 - 13 % 2017 5:57 AM MANAGEMENT ASSOCIATE [facility] Basophils % Manual 1 0 - 2 % 2017 5:57 AM MANAGEMENT ASSOCIATE [facility] Band % Manual 11 0 - 11 % 08/04/2017 5:[address] [facility] Cells Counted 100 # cells 08/04/2017 5:[address] [facility] WBC Morph Normal 08/04/2017 5:57 AM MANAGEMENT ASSOCIATE [facility] Anisocytosis 1+(A) None 08/04/2017 5:57 AM MANAGEMENT ASSOCIATE [facility] Poikilocytosis 1+(A) None 08/04/2017 5:57 AM MANAGEMENT ASSOCIATE [facility] [place] Cells Occasional (A) None 08/04/2017 5:[address] [facility] Elliptocytes 1+(A) None 08/04/2017 5:[address] [facility] Tear Drop Cells Occasional (A) None 08/04/2017 5:[address] [facility] Platelet Estimation Normal 08/04/2017 5:[address] [facility] Blood BLOOD SPECIMEN / Unknown Lab Venipuncture / Unknown 08/04/2017 3:44 AM MANAGEMENT ASSOCIATE 08/04/2017 4:20 AM MANAGEMENT ASSOCIATE Sara Hawthorne MD LAB - HEMATOLOGY O RDERABLES [facility] [address] [place] [address] * (ABNORMAL) URINALYSIS ROUTINE AUTO Urine Clean Catch (08/04/2017 3:12 AM MANAGEMENT ASSOCIATE) Only the most recent of3 resultswithin the time period is included. Color UA Yellow Straw, Yellow 08/04/2017 3:[address] [facility] Clarity UA Clear Clear 08/04/2017 3:[address] [facility] Glucose UA Negative Negative 08/04/2017 3:[address] [facility] Bilirubin UA Negative Negative 08/04/2017 3:[address] [facility] Ketone UA Negative Negative 08/04/2017 3:[address] [facility] Specific [place] UA 1.013 1.005 - 1.030 08/04/2017 3:[address] [facility] Blood UA 1+(A) Negative 08/04/2017 3:[address] [facility] pH UA 5.0 5.0 - 8.0 pH 08/04/2017 3:[address] [facility] Protein UA Negative Negative 08/04/2017 3:[address] [facility] Urobilinogen UA Negative Negative mg/dL 08/04/2017 3:[address] [facility] Nitrite UA Negative Negative 08/04/2017 3:[address] [facility] Leukocyte UA Negative Negative 08/04/2017 3:[address] [facility] Urine Microscopy Urine microscopy to follow 08/04/2017 3:[address] [facility] Urine URINE SPECIMEN OBTAINED BY CLEAN CATCH PROCEDURE / Unknown Collection / Unknown 08/04/2017 3:12 AM MANAGEMENT ASSOCIATE 08/04/2017 3:27 AM MANAGEMENT ASSOCIATE Narrative [facility] - 08/04/2017 3:35 AM MANAGEMENT ASSOCIATE Sara Hawthorne MD LAB - URINALYSIS O RDERABLES Performing Organization Address City/[facility]/ZIP Co de Phone Number [facility] [address] [place], [place] [phone] * URINALYSIS MICROSCOPIC ONLY (08/04/2017 3:12 AM MANAGEMENT ASSOCIATE) RBC UA 0-5 0-5, None Seen # /hpf 08/04/2017 3:35 AM MANAGEMENT ASSOCIATE [facility] WBC UA 0-5 0-5, None Seen # /hpf 08/04/2017 3:35 AM MANAGEMENT ASSOCIATE [facility] Bacteria UA None Seen None Seen 08/04/2017 3:35 AM MANAGEMENT ASSOCIATE [facility] Squamous Epithelial Cells None Seen None Seen, 0-2, 3-5 /hpf 08/04/2017 3:35 AM MANAGEMENT ASSOCIATE [facility] Urine URINE SPECIMEN OBTAINED BY CLEAN CATCH PROCEDURE / Unknown Collection / Unknown 08/04/2017 3:12 AM MANAGEMENT ASSOCIATE 08/04/2017 3:27 AM MANAGEMENT ASSOCIATE Narrative [facility] - 08/04/2017 3:35 AM MANAGEMENT ASSOCIATE Sara Hawthorne MD LAB - URINALYSIS O RDERABLES Performing Organization Address City/[facility]/ZIP Co de Phone Number [facility] [address] [place] [address] * EOSINOPHIL URINE SMEAR (08/04/2017 3:12 AM MANAGEMENT ASSOCIATE) Eosinophils Urine NONE SEEN NONE SEEN 08/04/2017 5:08 AM MANAGEMENT ASSOCIATE [facility] Urine URINE / Unknown Collection / Unknown 08/04/2017 3:12 AM MANAGEMENT ASSOCIATE 08/04/2017 3:27 AM MANAGEMENT ASSOCIATE Sara Hawthorne MD LAB - URINE CHEMIS TRY ORDERABLES Performing Organization Address [facility] Co de Phone Number [facility] [address] [place], [place] [phone] * ED CRITICAL CARE (08/03/2017 2:11 PM MANAGEMENT ASSOCIATE) Narrative Shamir Domingo DO - 08/03/2017 2:11 PM MANAGEMENT ASSOCIATE Shamir Domingo DO 08/03/2017 2:11 PM Critical Care Performed by: SHAMIR DOMINGO Authorized by: SHAMIR DOMINGO Total critical care time: 35 minutes Critical care was necessary to treat or prevent imminent or life-threatening deterioration of the following conditions: sepsis. Critical care was time spent personally by me on the following activities: development of treatment plan with patient or surrogate, discussions with consultants, evaluation of patient's response to treatment, examination of patient, obtaining history from patient or surrogate, ordering and review of laboratory studies, ordering and performing treatments and interventions, ordering and review of radiographic studies, pulse oximetry, re-evaluation of patient's condition and review of old charts. Shamir Domingo DO PROCEDURE/MINOR SURG ICAL ORDERABLES * TROPONIN I (08/03/2017 12:56 PM MANAGEMENT ASSOCIATE) Only the most recent of3 resultswithin the time period is included. Pathologist [facility] Troponin I <0.015 0.000 - 0.049 ng/mL 08/03/2017 1:19 PM MANAGEMENT ASSOCIATE [facility] Blood BLOOD SPECIMEN / Unknown Venipuncture / Unknown 08/03/2017 12:56 PM MANAGEMENT ASSOCIATE 08/03/2017 1:01 PM MANAGEMENT ASSOCIATE Narrative [facility] - 08/03/2017 1:19 PM MANAGEMENT ASSOCIATE Note: Diagnosis of myocardial infarction requires symptoms of ischemia or EKG changes of ischemia and Troponin I >99th of normal (0.05 ng/mL). Troponin should be drawn on initial assessment and 3-6 hours later as clinically indicated. Any condition resulting in myocardial cell damage can increase cardiac troponin levels. In addition to myocardial infarction, these include but are not limited to congestive heart failure (CHF), arrhythmia, myocarditis, and non-cardiac related causes such as pulmonary embolism, renal failure and sepsis. Shamir Domingo DO LAB - CHEMISTRY DEEPA JEFFERSON [facility] [address] [place] [address] * CK BLOOD (08/03/2017 12:56 PM MANAGEMENT ASSOCIATE) Only the most recent of2 resultswithin the time period is included. CK 43 35 - 232 U/L 08/03/2017 3:34 PM MANAGEMENT ASSOCIATE [facility] Blood BLOOD SPECIMEN / Unknown Venipuncture / Unknown 08/03/2017 12:56 PM MANAGEMENT ASSOCIATE 08/03/2017 1:01 PM MANAGEMENT ASSOCIATE Teja Rose MD LAB - CHEMISTRY DEEPA JEFFERSON [facility] [address] [place] [address] * XR CHEST 1VW PORTABLE (08/03/2017 12:39 PM MANAGEMENT ASSOCIATE) Anatomical Region Laterality Modality Chest Radiographic Marianela ging 08/03/2017 12:4 3 PM MANAGEMENT ASSOCIATE Impressions 08/03/2017 12:43 PM MANAGEMENT ASSOCIATE Clear lungs. Narrative 08/03/2017 12:43 PM MANAGEMENT ASSOCIATE Chest x-ray single view. HISTORY: Wound infection. A single view of the chest shows normal heart size with normal vessels. Lungs are clear. Procedure Note Erwin Bonilla MD - 08/03/2017 Chest x-ray single view. HISTORY: Wound infection. A single view of the chest shows normal heart size with normal vessels. Lungs are clear. IMPRESSION Clear lungs. Shamir Domingo DO DIAGNOSTIC IMAGING O RDERABLES * NICOTINE + METABOLITES BLOOD (08/03/2017 10:24 AM MANAGEMENT ASSOCIATE) Nicotine None Detected ng/mL 08/10/2017 9:19 AM [facility] ([facility]) Comment: Nicotine levels greater than 2.0 are consistent with the use of tobacco or tobacco cessation products. Cotinine None Detected ng/mL 08/10/2017 9:19 AM [facility] ([facility]) Comment: Cotinine levels greater than 20.0 are consistent with the use of tobacco or tobacco cessation products. Blood BLOOD SPECIMEN / Unknown Lab Venipuncture / Unknown 08/03/2017 10:24 AM MANAGEMENT ASSOCIATE 08/03/2017 12:32 PM MANAGEMENT ASSOCIATE Narrative [facility] ([facility]) - 08/10/2017 9:19 AM MANAGEMENT ASSOCIATE Performed at[address] [place] [id number] High Pressure Boiler Operator: John Donovan MD, Phone: [phone] Shamir Domingo DO LAB - CHEMISTRY DEEPA JEFF[facility] ([facility]) [address] [place] [address] * (ABNORMAL) PTH INTACT (07/21/2017 4:39 AM MANAGEMENT ASSOCIATE) Pathologist [facility] PTH Intact 46 14 - 72 pg/mL 07/21/2017 6:15 AM MANAGEMENT ASSOCIATE [facility] Calcium 8.2(L) 8.5 - 10.1 mg/dL 07/21/2017 6:15 AM MANAGEMENT ASSOCIATE [facility] Blood BLOOD SPECIMEN / Unknown Lab Venipuncture / Unknown 07/21/2017 4:39 AM MANAGEMENT ASSOCIATE 07/21/2017 5:35 AM MANAGEMENT ASSOCIATE Bigg Smith MD LAB - CHEMISTRY DEEPA JEFFERSON Performing Organization Address [facility] Co de Phone Number [facility] [address] [place], [place] [phone] * (ABNORMAL) VITAMIN D 25-HYDROXY (07/21/2017 4:39 AM MANAGEMENT ASSOCIATE) Pathologist [facility] Vitamin D, 25 Hydroxy 15.73(L) 30 - 100 ng/mL 07/21/2017 6:15 AM MANAGEMENT ASSOCIATE [facility] Blood BLOOD SPECIMEN / Unknown Lab Venipuncture / Unknown 07/21/2017 4:39 AM MANAGEMENT ASSOCIATE 07/21/2017 5:35 AM MANAGEMENT ASSOCIATE Narrative [facility] - 07/21/2017 6:15 AM MANAGEMENT ASSOCIATE Vitamin D Status: Deficiency <20 ng/mL Insufficiency 20-30 ng/mL Sufficiency 30-100 ng/mL Toxicity >100 ng/mL Bigg Smith MD LAB - CHEMISTRY DEEPA JEFFERSON Performing Organization Address [facility] Co de Phone Number [facility] [address] [place] [id number] * TSH (07/21/2017 4:39 AM MANAGEMENT ASSOCIATE) Pathologist [facility] TSH 0.469 0.358 - 3.740 uIU/mL 07/21/2017 7:13 AM MANAGEMENT ASSOCIATE [facility] Blood BLOOD SPECIMEN / Unknown Lab Venipuncture / Unknown 07/21/2017 4:39 AM MANAGEMENT ASSOCIATE 07/21/2017 5:35 AM MANAGEMENT ASSOCIATE Bigg Smith MD LAB - CHEMISTRY DEEPA JEFFERSON [facility] Organization Address City/State/ZIP Co de Phone Number [facility] [address] [place] [address] * XR HIP 1 VW LEFT (07/18/2017 5:31 PM MANAGEMENT ASSOCIATE) Only the most recent of2 resultswithin the time period is included. Anatomical Region Laterality Modality Pelvis, Lower Extremity Radiogra phic Imaging 07/18/2017 5:45 PM MANAGEMENT ASSOCIATE Narrative 07/18/2017 5:46 PM MANAGEMENT ASSOCIATE Left hip AP 1 view HISTORY: Left hip replacement Since intraoperative images there is been completion of a left hip arthrodesis. There is no acute fracture or dislocation. Procedure Note Nigel Hamilton MD - 07/18/2017 Left hip AP 1 view HISTORY: Left hip replacement Since intraoperative images there is been completion of a left hip arthrodesis. There is no acute fracture or dislocation. Maribell Manjarrez MD DIAGNOSTIC IMAGING ORDERABLES * (ABNORMAL) URINALYSIS ROUTINE W/REFLEX TO CULTURE (07/17/2017 10:15 AM MANAGEMENT ASSOCIATE) Color UA Yellow Straw, Yellow 07/17/2017 12:[address] [facility] Clarity UA Slt Cloudy(A) Clear 07/17/2017 12:[address] [facility] Glucose UA Negative Negative 07/17/2017 12:[address] [facility] Bilirubin UA Negative Negative 07/17/2017 12:[address] [facility] Ketone UA Negative Negative 07/17/2017 12:[address] [facility] Specific [place] UA 1.011 1.005 - 1.030 07/17/2017 12:[address] [facility] Blood UA 3+(A) Negative 07/17/2017 12:[address] [facility] pH UA 8.0 5.0 - 8.0 pH 07/17/2017 12:[address] [facility] Protein UA Negative Negative 07/17/2017 12:[address] [facility] Urobilinogen UA Negative Negative mg/dL 07/17/2017 12:[address] [facility] Nitrite UA Negative Negative 07/17/2017 12:[address] [facility] Leukocyte UA Negative Negative 07/17/2017 12:[address] [facility] Urine Microscopy Urine microscopy to follow 07/17/2017 12:[address] [facility] Reflex Status Culture not indicated 07/17/2017 12:[address] [facility] Urine URINE SPECIMEN FROM URINARY BLADDER / Unknown Collection / Unknown 07/17/2017 10:15 AM MANAGEMENT ASSOCIATE 07/17/2017 11:47 AM [facility] Narrative [facility] - 07/17/2017 12:03 PM MANAGEMENT ASSOCIATE Rishabh Ladd MD LAB - URINALYSIS ORD ERABLES [facility] [address] [place], [place] [phone] * (ABNORMAL) URINALYSIS MICROSCOPIC ONLY W/REFLEX CULTURE (07/17/2017 10:15 AM MANAGEMENT ASSOCIATE) Reflex Status Culture to follow 07/17/2017 12:[address] [facility] RBC UA >100(A) 0-5, None Seen # /hpf 07/17/2017 12:[address] [facility] WBC UA >100(A) 0-5, None Seen # /hpf 07/17/2017 12:[address] [facility] Bacteria UA Trace(A) None Seen 07/17/2017 12:[address] [facility] Squamous Epithelial Cells None Seen None Seen, 0-2, 3-5 /hpf 07/17/2017 12:[address] [facility] Mucus UA 1+ /LPF 07/17/2017 12:[address] [facility] Urine URINE SPECIMEN FROM URINARY BLADDER / Unknown Collection / Unknown 07/17/2017 10:15 AM MANAGEMENT ASSOCIATE 07/17/2017 11:47 AM MANAGEMENT ASSOCIATE Narrative [facility] - 07/17/2017 12:07 PM MANAGEMENT ASSOCIATE Rishabh Ladd MD LAB - URINALYSIS ORD ERABLES [facility] [address] [place] [address] * CT PELVIS WO CONTRAST (07/13/2017 11:51 PM MANAGEMENT ASSOCIATE) Anatomical Region Laterality Modality Pelvis Computed Tomogra phy 07/14/2017 8:22 AM MANAGEMENT ASSOCIATE Impressions 07/14/2017 8:28 AM MANAGEMENT ASSOCIATE 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 There is small lytic lesions within the pelvis which could represent aggressive appearing osteopenia, correlation for any history of multiple myeloma is recommended. Preliminary report was provided by [facility]. Narrative 07/14/2017 8:28 AM MANAGEMENT ASSOCIATE Examination: CT of the pelvis without contrast History: Left hip pain Findings: CT of the pelvis and left hip was performed without intravenous contrast. Images through the soft tissues demonstrate a right renal cyst. Urinary bladder appears normal, partially obscured by streak from bilateral hip arthroplasties. No significant free pelvic fluid is seen. No dilated loops of small bowel are seen within the pelvis. Bones are osteopenic. Several bone islands are noted. There are several focal lytic lesions involving the left iliac bone, largest series 5 image 13 measures 1.1 cm. Findings could represent aggressive appearing osteopenia, however correlation for any history of myeloma is recommended. There is a right total hip arthroplasty with heterotopic ossification adjacent to the greater trochanter. 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 The head of the femur is within the acetabular cup. The neck is fractured and the neck and proximal femoral shaft are displaced superiorly and posteriorly. There is a fragment of greater tuberosity adjacent to the proximal prosthesis. No fracture of the proximal femur adjacent to the stem of the arthroplasty is noted. There is amorphous fluid and slightly hyperdense soft tissue attenuation adjacent to portions of the prosthesis partially obscured by streak from the arthroplasty. This could represent heterotopic bone formation. Procedure Note Joao Hartmann MD - 07/14/2017 Examination: CT of the pelvis without contrast History: Left hip pain Findings: CT of the pelvis and left hip was performed without intravenous contrast. Images through the soft tissues demonstrate a right renal cyst. Urinary bladder appears normal, partially obscured by streak from bilateral hip arthroplasties. No significant free pelvic fluid is seen. No dilated loops of small bowel are seen within the pelvis. Bones are osteopenic. Several bone islands are noted. There are several focal lytic lesions involving the left iliac bone, largest series 5 image 13 measures 1.1 cm. Findings could represent aggressive appearing osteopenia, however correlation for any history of myeloma is recommended. There is a right total hip arthroplasty with heterotopic ossification adjacent to the greater trochanter. 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 The head of the femur is within the acetabular cup. The neck is fractured and the neck and proximal femoral shaft are displaced superiorly and posteriorly. There is a fragment of greater tuberosity adjacent to the proximal prosthesis. No fracture of the proximal femur adjacent to the stem of the arthroplasty is noted. There is amorphous fluid and slightly hyperdense soft tissue attenuation adjacent to portions of the prosthesis partially obscured by streak from the arthroplasty. This could represent heterotopic bone formation. IMPRESSION 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 There is small lytic lesions within the pelvis which could represent aggressive appearing osteopenia, correlation for any history of multiple myeloma is recommended. Preliminary report was provided by [facility]. Linh Still MD CT ORDERABLES * XR PELVIS 1 OR 2 VW (07/13/2017 11:04 PM MANAGEMENT ASSOCIATE) Anatomical Region Laterality Modality Pelvis Radiographic Marianela ging 07/14/2017 7:20 AM MANAGEMENT ASSOCIATE Impressions 07/14/2017 8:15 AM MANAGEMENT ASSOCIATE Abnormal left hip prosthesis as noted. Edited by Namita Becerril on 07/14/2017 8:08 AM Narrative 07/14/2017 8:15 AM MANAGEMENT ASSOCIATE PELVIS AP VIEW. HISTORY: Hip pain. Views of the pelvis demonstrated a hip prosthesis on the right in satisfactory position. Hip prosthesis on the left shows fracture or disconnect between the prosthetic femoral head and prosthetic femoral neck resulting in superior dislocation of the femur. Procedure Note Erwin Bonilla MD - 07/14/2017 PELVIS AP VIEW. HISTORY: Hip pain. Views of the pelvis demonstrated a hip prosthesis on the right in satisfactory position. Hip prosthesis on the left shows fracture or disconnect between the prosthetic femoral head and prosthetic femoral neck resulting in superior dislocation of the femur. IMPRESSION Abnormal left hip prosthesis as noted. Edited by Namita Becerril on 07/14/2017 8:08 AM Linh Still MD DIAGNOSTIC IMAGING O RDERABLES * PT-INR (07/13/2017 10:36 PM MANAGEMENT ASSOCIATE) PT 10.0 9.5 - 11.6 sec 07/13/2017 11:[address] [facility] INR 1.0 0.9 - 1.1 07/13/2017 11:[address] [facility] Blood BLOOD SPECIMEN / Unknown Venipuncture / Unknown 07/13/2017 10:36 PM MANAGEMENT ASSOCIATE 07/13/2017 11:11 PM MANAGEMENT ASSOCIATE Narrative [facility] - 07/13/2017 11:21 PM MANAGEMENT ASSOCIATE Conventional Warfarin Anticoagulant Therapy: INR Reference Range: 2.0-3.0 Intensive Warfarin Anticoagulant Therapy: INR Reference Range: 2.5-3.5 Linh Still MD LAB - COAGULATION OR DERABLES Performing Organization Address [facility] Co de Phone Number [facility] [address] [place] [address] * ALCOHOL ETHYL BLOOD (07/13/2017 10:36 PM MANAGEMENT ASSOCIATE) Ethanol <10 <10 mg/dL 07/13/2017 11:[address] [facility] Ethanol Calculated <0.010 <0.100 gm/dL 07/13/2017 11:[address] [facility] Blood BLOOD SPECIMEN / Unknown Venipuncture / Unknown 07/13/2017 10:36 PM MANAGEMENT ASSOCIATE 07/13/2017 10:43 PM MANAGEMENT ASSOCIATE Narrative [facility] - 07/13/2017 11:01 PM MANAGEMENT ASSOCIATE Non Legal Serum Alcohol Linh Still MD LAB - CHEMISTRY ORDE RABLES Performing Organization Address [facility] Co de Phone Number [facility] [address] [place], [place] [phone] * (ABNORMAL) HEPATITIS C AB W/RFLX TO HCV RNA QN PCR (10/23/2015 9:19 AM CDT) [facility] Hepatitis C Antibody REACTIVE( A) NON-REACT CK [facility] ([facility]) Signal/Cutoff 26.00(H) <1.00 [facility] ([facility]) Comment: Following CDC recommendations (MMWR No. 62, 2013), this patient's HCV Antibody Reactive sample will be tested for the presence of HCV RNA by a Nucleic Acid Amplification Test (NAAT) to determine if the patient has an active HCV infection. REPORT COMMENT: FASTING:NO Test Performed at: [facility] [address] [facility] [place] [address] JOHN MATTHEWS DO,MPH 10/23/2015 9:19 AM CDT 10/23/2015 9:20 AM CDT Mariaelena Connors PA-C LAB - CHEMISTRY O RDERABLES [facility] ([facility]) * HEPATITIS C RNA QUANT (NONGRAPH) RFLX GENOTYPE (10/23/2015 9:19 AM CDT) [facility] Hepatitis C Virus RNA PCR Quantitative <15 NOT DETECTED <15 IU/mL [facility] ([facility]) Hepatitis C Virus RNA Log IU/mL <1.18 NOT DETECTED <1.18 Log IU/mL [facility] ([facility]) Comment: Please note: There are several scenarios that may cause this combination of results. 1)Patient is not currently actively infected with HCV either because the patient has a resolved HCV infection or the patient has a false positive Ab test and was never infected with HCV. 2)A few patients with circulating anti-HCV antibodies that do not have detectable HCV RNA, may not have completely resolved the infection. These infrequently encountered patients could be carriers of the virus and should be managed according to the current Treatment Guidelines (J Hepatol, 9966-2982, ). Please correlate these findings with the patient's clinical history and any other diagnostic findings, including any evidence of liver dysfunction. See Note [facility] ([facility]) Comment: The analytical performance characteristics of this assay have been determined by [email or web address]. The modifications have not been cleared or approved by the FDA. This assay has been validated pursuant to the CLIA regulations and is used for clinical purposes. This test was performed using the BROOKE(R)AmpliPrep/ BROOKE(R)TaqMan(R)HCV Test,v2.0. For more information on this test, go to: http://education.360Learning/faq/ISO89n6 (This link is being provided for informational/ educational purposes only.) REPORT COMMENT: FASTING:NO Test Performed at: [facility] [address] [place] [address] JOHN MATTHEWS DO,MPH 10/23/2015 9:19 AM CDT 10/23/2015 9:20 AM CDT Mariaelena Connors PA-C LAB - CHEMISTRY O RDERABLES [facility] ([facility]) * HEPATITIS C RNA QUANTITATIVE PCR (07/08/2015 11:05 AM MANAGEMENT ASSOCIATE) Only the most recent of4 resultswithin the time period is included. Pathologist [facility] Hepatitis C Virus RNA PCR Specimen: 1 ml Serum Reference: [id number] Test: Hepatitis C RT-PCR (Quantitative) RESULT Not Detected Reference Range Not Detected INTERPRETATION The quantitative Hepatitis C viral RNA RT-PCR determination was performed on a serum sample and is reported in IU/ml. Hepatitis C viral RNA was not detected. COMMENT The Hepatitis C viral (HCV) RNA analysis utilized a serum sample, real-time reverse medical transcription editor PCR, and is reported as Not Detected, Detected (<12 IU/ml), Quantity (IU/ml) or >100,000,000 IU/ml. The analytical sensitivity of the assay is 5 IU/ml (90% of samples with this HCV RNA level were detected). Values less than 5 IU/ml are reported as Not Detected. The linear range is from 12 IU/ml to 100,000,000 IU/ml. Values greater than or equal to 5 IU/ml and <12 IU/ml are reported as Detected (<12 IU/ml). Values greater than 100,000,000 IU/ml are reported as >100,000,000 IU/ml. The detection/quantit ation of HCV RNA in serum is based on the isolation of HCV RNA with reverse medical transcription editor of genomic HCV RNA followed by real-time PCR in the presence of an unrelated RNA internal control. The internal control ensures that RNA is isolated, and that no general significant inhibitors of the RT-PCR process are present. This analysis was performed using an [place] FDA approved test methodology (Giles RealTime HCV). Test performed at [facility], [address] [place] [id number] This case has been personally reviewed and interpreted by the attending (teaching) pathologist. Final Diagnosis performed by Salomon Roberts PHD. Electronically signed 07/09/2015 [facility] ([facility]) Blood specimen (specimen) BLOOD SPECIMEN / Unknown 07/08/2015 11:05 AM MANAGEMENT ASSOCIATE 07/08/2015 11:57 AM MANAGEMENT ASSOCIATE Mariaelena Connors PA-C LAB - CHEMISTRY O RDERABLES Performing Organization Address [facility] Co de Phone Number [facility] ([facility]) * HEPATITIS C REAL-TIME PCR QUANTASURE (04/06/2015 2:03 PM MANAGEMENT ASSOCIATE) Only the most recent of3 resultswithin the time period is included. Hepatitis C Virus RNA PCR Quantitative <15 NOT DETECTED <15 IU/mL [facility] ([facility]) Hepatitis C Virus RNA Log IU/mL <1.18 NOT DETECTED <1.18 Log IU/mL [facility] ([facility]) See Note [facility] ([facility]) Comment: This test was performed using the BROOKE(R)AmpliPrep/ BROOKE(R)TaqMan(R)HCV Test, v2.0. The performance characteristics of this assay have been determined by [email or web address]. Performance characteristics refer to the analytical performance of the test. For more information on this test, go to: http://education.360Learning/faq/RUW32x0 (This link is being provided for informational/ educational purposes only.) REPORT COMMENT: FASTING:NO Test Performed at: [facility] [address] [facility] [place] [address] JOHN MATTHEWS DO,MPH 04/06/2015 2:03 PM MANAGEMENT ASSOCIATE 04/06/2015 2:04 PM MANAGEMENT ASSOCIATE Mariaelena Connors PA-C LAB - SEROLOGY OR DERABLES Performing Organization Address [facility] Co de Phone Number [facility] ([facility]) * PSA SERIAL (03/04/2015 12:47 PM CDT) Only the most recent of2 resultswithin the time period is included. Pathologist [facility] PSA Total 1.1 0.0 - 4.0 ng/mL [facility] Blood specimen (specimen) BLOOD SPECIMEN / Unknown 03/04/2015 12:47 PM CDT 03/04/2015 12:51 PM CDT Lucas Schmitt MD LAB - CHEMISTRY ORD ERABLES Performing Organization Address [facility] de Phone Number [address] [phone] * TESTOSTERONE TOTAL MALE (03/04/2015 12:47 PM CDT) [facility] Testosterone 545 300 - 720 ng/dL [facility] Comment: Total testosterone values may not reflect optimal concentrations in all individuals. Free or bioavailable testosterone measurements may provide supportive information. REFERENCE INTERVAL: Testosterone, Adult Male Access complete set of age- and/or gender-specific reference intervals for this test in the [facility] Test Directory ([employer]). Blood specimen (specimen) BLOOD SPECIMEN / Unknown 03/04/2015 12:47 PM CDT 03/04/2015 12:51 PM CDT Lucas Schmitt MD LAB - CHEMISTRY ORD ERABLES Performing Organization Address [facility] Co de Phone Number [facility] * PT-INR U (11/03/2014 10:23 AM CDT) Only the most recent of2 resultswithin the time period is included. Pathologist [facility] INR 0.9 [facility] ([facility]) Comment: Reference Range 0.9-1.1 Moderate-intensity Warfarin Therapy 2.0-3.0 Higher-intensity Warfarin Therapy 3.0-4.0 PT 9.6 9.0 - 11.5 sec [facility] ([facility]) Comment: For more information on this test, go to: http://education.360Learning/faq/DTE833 REPORT COMMENT: FASTING:NO Test Performed at: [facility] [address] WARREN RAMON MD 11/03/2014 10:2 3 AM CDT 11/03/2014 10:24 AM CDT Aby M Jj PILLOW FILLER-CIVIL ENGINEERING ASSISTANT LAB - COAGUL ATION ORDERABLES [facility] ([facility]) * LIVER FIBROSIS PANEL (11/03/2014 10:23 AM CDT) [id number] ins Quantitative 278 106 - 279 mg/dL [facility] ([facility]) Haptoglobin 118 43 - 212 mg/dL [facility] ([facility]) Apolipoprotein A-1 113 94 - 176 mg/dL [facility] ([facility]) Bilirubin Total 0.5 0.2 - 1.2 mg/dL [facility]) GGT 20 3 - 70 U/L [facility]) ALT 19 9 - 46 U/L [facility]) Fibrosis Score 0.53 0.00 - 1.00 [facility]) Fibrosis Stage F2 [facility] ([facility]) Interpretation Fibrosis SEE NOTE [facility] ([facility]) Comment: moderate fibrosis Necroinflammat Activity Score 0.10 0.00 - 1.00 [facility] ([facility]) Necroinflammat Activity Grade A0 [facility] ([facility]) Interpretation Necroinflammat SEE NOTE [facility] ([facility]) Comment: no activity Reference ID [id number] [facility] ([facility]) Footnote SEE NOTE [facility]) Comment: The reliability of results is dependent on compliance with the preanalytical and analytical conditions recommended by [employer]. The tests have to be deferred for: acute hemolysis, acute hepatitis, acute inflammation, extra hepatic cholestasis. The advice of a specialist should be sought for interpretation in chronic hemolysis and Gilbert's syndrome. The test interpretation is not validated in liver transplant patients. Isolated extreme values of one of the components should lead to caution in interpreting the results. In case of discordance between a biopsy result and a test, it is recommended to seek the advice of a specialist. The causes of these discordances could be due to a flaw of the test or to a flaw in the biopsy: i.e. a liver biopsy has a 33% variability rate for one fibrosis stage. FibroTest is interpretable for chronic hepatitis B and C, alcoholic and non alcoholic steatosis. ActiTest is interpretable for chronic hepatitis B and C. The performance characteristics have been determined by [facility]. It has not been cleared or approved by the U.S. Food and Drug Administration. Performance characteristics refer to the analytical performance of the test. Effective September 08, 2014 FibroSure (91180) was discontinued and replaced with an in-house version Liver Fibrosis, FibroTest-ActiTest panel (09783). These tests are equivalent. [employer], [employer], the associated logo, [employer] and all associated [employer] kirk are the registered trademarks of [employer]. All third libertarian kirk - (R) and (TM) - are the property of their respective owners. (C) [id number] [employer] Incorporated. All rights reserved. REPORT COMMENT: FASTING:NO Test Performed at: [facility] [address] [place] [address] CASANDRA PACE MD PHD 11/03/2014 10:2 3 AM CDT 11/03/2014 10:24 AM CDT Aby Gardner PILLOW FILLER-CIVIL ENGINEERING ASSISTANT LAB - CHEMIS TRY ORDERABLES [facility] ([facility]) * HEPATITIS C GENOTYPE (11/03/2014 10:23 AM CDT) Only the most recent of2 resultswithin the time period is included. Hepatitis C Virus Genotype LIPA NOT DETECTED IRENE ([facility]) Comment: We were unable to obtain a genotype from this sample. The most common reasons for failure to genotype are insufficient viral load, mutations in the viral genome at the assay priming sites, and presence of inhibitory substance in the sample. Please correlate this result with any recent viral load for this patient and resubmit if clinically warranted. A minimum viral load of 300 IU/mL is required for testing. The method used in this test is RT-PCR and reverse hybridization (Line Probe) of the 5' UTR and core region of the HCV genome. The test was developed and its performance characteristics have been determined by [employer]. It has not been cleared or approved by the U.S. Food and Drug Administration. The FDA has determined that such clearance or approval is not necessary. Performance characteristics refer to the analytical performance of the test. http://education.PlayFilm.TC Website Promotions /faq/HCVGenotyping REPORT COMMENT: FASTING:NO Test Performed at: [facility] [address] [place] [id number] ZOIE PARKER MD 11/03/2014 10:2 3 AM CDT 11/03/2014 10:24 AM CDT Aby Gardner PILLOW FILLER-CIVIL ENGINEERING ASSISTANT LAB - CHEMIS TRY ORDERABLES [facility] ([facility]) * (ABNORMAL) HEPATITIS C FIBROSURE (08/26/2014 10:40 AM CDT) Fibrosis Score 0.61(H) 0.00 - 0.21 [facility] (BEAKER) Fibrosis Stage Comment [facility] (BEAKER) Comment:F3-Bridging fibrosis with many septa Necroinflammat Activity Score 0.47(H) 0.00 - 0.17 [facility] (BEAKER) Necroinflammat Activity Grade A1-A2 [facility] (BEAKER) Alpha 2-Macroglobulins Quantitative 320(H) 110 - 276 mg/dL [facility] (BEAKER) Haptoglobin 115 34 - 200 mg/dL [facility] (BEAKER) Apolipoprotein A-1 121 110 - 180 mg/dL [facility] (BEAKER) Bilirubin Total 0.4 0.0 - 1.2 mg/dL [facility] (BEAKER) GGT 43 0 - 65 IU/L SL [facility] (BEAKER) ALT P5P 60(H) 0 - 55 IU/L SL [facility] (BEAKER) Interpretation Comment [facility] (BEAKER) Comment: Quantitative results of 6 biochemical tests are analyzed using a computational algorithm to provide a quantitative surrogate marker (0.0-1.0) for liver fibrosis (METAVIR F0-F4) and for necroinflammatory activity (METAVIR A0-A3). Fibrosis Scoring Comment [facility] Comment: <0.21 = Stage F0 - No fibrosis 0.21 - 0.27 = Stage F0 - F1 0.27 - 0.31 = Stage F1 - Portal fibrosis 0.31 - 0.48 = Stage F1 - F2 0.48 - 0.58 = Stage F2 - Bridging fibrosis with few septa 0.58 - 0.72 = Stage F3 - Bridging fibrosis with many septa 0.72 - 0.74 = Stage F3 - F4 >0.74 = Stage F4 - Cirrhosis Necroinflammat Activity Scoring Comment [facility]) Comment: <0.17 = Grade A0 - No Activity 0.17 - 0.29 = Grade A0 - A1 0.29 - 0.36 = Grade A1 - Minimal activity 0.36 - 0.52 = Grade A1 - A2 0.52 - 0.60 = Grade A2 - Moderate activity 0.60 - 0.62 = Grade A2 - A3 >0.62 = Grade A3 - Severe activity Limitations Comment [facility] Comment: The negative predictive value of a Fibrotest score <0.31 (absence of clinically significant fibrosis) was 85% when compared to liver biopsy in 1,270 HCV infected patients with a 38% prevalence of significant liver fibrosis (F2, 3 or 4). The positive predictive value of a Fibro- test score >0.48 (F2, 3, 4) was 61% in that same patient cohort. HCV FibroSURE is not recommended in patients with Gilbert Disease, acute hemolysis (e.g. HCV ribavirin therapy mediated hemolysis) acute hepa- titis of the liver, extra-hepatic cholestasis, transplant patients, and/or renal insufficiency patients. Any of these clinical situations may lead to inaccurate quantitative predictions of fibrosis and necroinflammatory activity in the liver. Comment Comment [facility] ([place]) Comment: This test was developed and its performance characteristics determined by [employer]. It has not been cleared or approved by the Food and Drug Administration. The FDA has determined that such clearance or approval is not necessary. For questions regarding this report please contact [facility] Customer Service Department at . Blood specimen (specimen) BLOOD SPECIMEN / Unknown 08/26/2014 10:40 AM CDT 08/26/2014 11:28 AM CDT Narrative [facility] ([place]) - 08/28/2014 8:25 AM CDT Performed at: - [address] [id number] High Pressure Boiler Operator: John Donovan MD, Phone: [phone] Aby Gardner PILLOW FILLER-CIVIL ENGINEERING ASSISTANT LAB - CHEMIS TRY ORDERABLES [facility] ([place]) * (ABNORMAL) HEPATITIS C ANTIBODY (07/07/2014 9:52 AM MANAGEMENT ASSOCIATE) Hepatitis C Antibody Reactive( A) Non-react ck [facility] Comment: Hepatitis C Antibody screen is consistent with past or current infection with Hepatitis C Virus. Nucleic Acid Test (KYLE) for Hepatitis C Viral RNA should be performed for initial HCV workup, and for differentiating active/chronic infection from resolved infection. Blood specimen (specimen) BLOOD SPECIMEN / Unknown 07/07/2014 9:52 AM MANAGEMENT ASSOCIATE 07/07/2014 11:06 AM MANAGEMENT ASSOCIATE Aby Gardner PILLOW FILLER-CIVIL ENGINEERING ASSISTANT LAB - CHEMIS TRY ORDERABLES [address] [phone] * (ABNORMAL) URINALYSIS - POINT OF CARE (AMB) [facility] (05/01/2012 1:00 PM MANAGEMENT ASSOCIATE) Only the most recent of6 resultswithin the time period is included. Glucose UA neg [facility] Bilirubin UA POCT neg [facility] Ketones UA POCT neg [facility] Specific [place] UA 1.015 [facility] Blood Urine POCT neg [facility] pH UA 6.0 [facility] Protein UA neg [facility] Urobilinogen UA 0.2 [facility] Nitrite UA neg [facility] WBC UA 15Leu/uL( A) [facility] Urine specimen (specimen) 05/01/2012 1:00 PM MANAGEMENT ASSOCIATE Historical Provider LAB - POINT OF CA RE ORDERABLES Performing Organization Address City/[facility]/ZIP Co de Phone Number [facility] * PATHOLOGY/GENETICS HISTORICAL-ONBASE (11/13/2011 10:53 AM CDT) 11/13/2011 10:5 3 AM CDT Historical Provider LAB - CHEMISTRY O GERTRUDE Performing Organization Address [facility] Co de Phone Number [address] * LAB HISTORICAL RESULTS-ONBASE (10/26/2011 9:04 PM CDT) Only the most recent of6 resultswithin the time period is included. 10/26/2011 9:04 PM CDT Narrative [facility] - 10/26/2011 9:04 PM CDT A scan was deleted from the Results section by Samira Elizabeth [DEJON] on 11/02/2011 at 2:42 PM (File: [id number]) Historical Provider LAB - CHEMISTRY O GERTRUDE Performing Organization Address [facility] Co de Phone Number [address] Care Teams Software Engineer Developer Relationship Specialty Start Date End Date Alex Low Update Information PCP - General 12/22/20
--- OUTSIDE RECORDS SUMMARY | 2024-08-16 11:39 | XMS_ITS | Referral Summary ---
Author Organization [facility] Healthcare Address [address] [place] [address] Care Team Providers Care Extruding Press Adjuster Name Role Phone Shonda Mcdaniels Primary Care Provid er Encounters Date Type Department Care Team Description 06/20/2024 9:15 AM REGISTERED TRAVEL NURSE Office Visit [facility] Cardiology [address] [place] [address] Lucas Gutierres MD History of coronary artery stent placement (Primary Dx); Permanent atrial fibrillation (HCC) from Last 3 Months Allergies No known active allergies Medications cephalexin (KEFLEX) 500 mg capsule Take 1 capsule (500 mg total) by mouth 2 (two) times a day 9 Active aspirin 81 mg enteric coated tablet Take 1 tablet (81 mg total) by mouth daily Active multivitamin capsule Take 1 capsule by mouth daily Active nitroglycerin (NITROSTAT) 0.4 mg SL tablet DISSOLVE 1 TABLET UNDER THE TONGUE EVERY 5 MINUTES NEEDED FOR CHEST PAIN. MAX OF 3 TABLETS IN 15 MINUTES. CALL 911 IF PAIN PERSISTS. 100 tablet 3 3 Active Bevespi Aerosphere 9-4.8 mcg inhaler 4 Active fluticasone propionate (FLONASE) 50 mcg/actuation nasal spray Administer 1 spray into each nostril 2 (two) times a day 1 each 4 Active Additional Information Patient not taking.Reported on 06/20/2024 sertraline (ZOLOFT) 25 mg tablet Take 1 tablet (25 mg total) by mouth daily 4 Active atorvastatin (LIPITOR) 20 mg tablet TAKE 1 TABLET BY MOUTH ONCE DAILY 90 tablet 1 4 Active Eliquis 5 mg tabletIndication s:Atrial fibrillation, unspecified type (HCC) TAKE 1 TABLET BY MOUTH TWICE DAILY 180 tablet 3 5 Active Active Problems Problem Noted Date Diagnosed Date Permanent atrial fibrillation 06/20/2023 Chest pain 01/21/2020 Osteomyelitis 12/13/2018 History of coronary artery stent placement 03/08 Arthralgia of hip 11/03/2016 Hyperlipidemia 10/06/2014 Overview (09/09/2016): Hyperlipidemia Atherosclerosis of coronary artery 10/06/2014 Overview (09/09/2016): Coronary atherosclerosis Social History Tobacco Use Types Packs/Day Years Used Date Smoking Tobacco: Former Cigarettes Q uit: 12/2019 Cigars Smokeless Tobacco: Never Tobacco Cessation:Counseling Given: Not Answered Alcohol Use Standard Drinks/Week Comments No 0 (1 standard drink = 0.6 oz pur e alcohol) Sex and Gender Information Value Date Recorded Sex Assigned at Not on file Legal Sex Male 4:05 PM REGISTERED TRAVEL NURSE Gender Identity Not on file Sexual Orientation Not on file Last Filed Vital Signs Vital Sign Reading Time Taken Comments Blood Pressure 100/68 06/20/2024 9:22 AM REGISTERED TRAVEL NURSE Pulse 69 06/20/2024 9:22 AM REGISTERED TRAVEL NURSE Temperature - - Respiratory Rate - - Oxygen Saturation 96% 06/20/2024 9:22 AM REGISTERED TRAVEL NURSE Inhaled Oxygen Concentration - - Weight 88.7 kg (195 lb 8 oz) 06/20/2024 9:22 AM REGISTERED TRAVEL NURSE Height 180.3 cm (5' 11 ) 06/20/2024 9:22 AM REGISTERED TRAVEL NURSE Body Mass Index 27.27 06/20/2024 9:22 AM REGISTERED TRAVEL NURSE Plan of Treatment Not on file Insurance MEDICARE SOLUTIONS MEDICARE SOLUTIONS Member Subscriber Plan / Payer ( fective 2022-Present) Name:Cristi Rasmussen Relation to Subscriber:Self Name:Cristi Rasmussen Payer ID:[id number] (NAIC) Type:[facility] MEDICARE Address: [place] [id number] MEDICARE SOLUTIONS Care Teams Extruding Press Adjuster Relationship Specialty Start Date End Date Shonda Mcdaniels PA PCP - General Physician Radiophone Operator 09/07/21
--- OUTSIDE RECORDS SUMMARY | 2024-08-16 11:39 | XMS_ITS | Encounter Summary ---
Author Organization [facility] Address [address] [place] [address] Care Team Providers Care Manhole Builder Name Role Phone Savannah Mcdonald MD Primary Care Provider [phone]- [phone] Savannah Mcdonald MD Primary Care Provider [phone]- [phone] Alex Low Primary Care Provider Unavaila ble Savannah Mcdonald MD Primary Care Provider [phone]- [phone] Savannah Mcdonald MD Primary Care Provider [phone]- [phone] Alex Low Primary Care Provider Unavaila ble Encounter Details Date Type Department Care Team (Late st Contact Info) Description 06/28/2018 Telephone [facility] [address] [place] [address] Geo Cameron MD Social History Tobacco Use Types Packs/Day Years Used Date Smoking Tobacco: Former Cigars Smokeless Tobacco: Never Comments:occasional cigar, l ast used 6 months ago Alcohol Use Standard Drinks/Week Comments Yes 8 (1 standard drink = 0.6 oz pur e alcohol) 1-3 beers, once a week Sex and Gender Information Value Date Recorded Sex Assigned at Not on file Gender Identity Male 07/13/2017 10:31 PM NETWORK STRATEGIST Sexual Orientation Not on file documented as of this encounter Functional Status Functional Status Response Date of Assess ment Is person deaf or have serious hearing difficult y? No 08/15/2017 Is person blind or have serious difficulty seein g? No 08/15/2017 Does person have serious dif ficulty walking/climbing stairs? No 08/15/2017 Does person have difficulty dressing/bathing? No 08/15/2017 Does person have difficulty doing errands alone? No 08/15/2017 Cognitive Status Response Date of Assessm ent Does person have difficulty concentrating/remembering/making decisions? No 08/15/2017 documented as of this encounter Miscellaneous Notes * Telephone Encounter - Yasmine Choe - 06/28/2018 9:06 AM CST PATIENT IS SCHEDULED FOR PROCEDURE ON 07/10/18 @ 1:45PM WITH DR. CAMERON. CPT CODE 83069 CYSTOSCOPY WITH DVIU DX CODE [id number] 48 LAB COMPLETED ON 06/26/18 SURGERY CONFIRMATION SENT 06/28/18 Yasmine Choe 06/28/2018 9:00 AM ORK STRATEGIST documented in this encounter Plan of Treatment Not on file documented as of this encounter Visit Diagnoses Not on filedocumented in this encounter Additional Health Concerns Infection Onset Date Last Indicated Resolved Time COVID-19 Under Investigation 06/04/2020 06/04/2020 06/04/2020 4:23 PM NETWORK STRATEGIST COVID-19 Under Investigation 09/07/2020 09/07/2020 09/07/2020 8:30 PM CDT documented as of this encounter Care Teams Manhole Builder Relationship Specialty Start Date End Date Savannah Mcdonald MD PCP - General Family Medicine 07/04/18 07/09/18 Savannah Mcdonald MD PCP - General Family Medicine 09/05/18 05/24/20 Alex Low Update Information PCP - General 05/25/20 05/26/20 Savannah Mcdonald MD PCP - General 05/27/20 06/25/20 Savannah Mcdonald MD PCP - General 06/26/20 12/21/20 Alex Low Update Information PCP - General 12/22/20 documented as of this encounter
--- OUTSIDE RECORDS SUMMARY | 2024-08-16 11:39 | XMS_ITS | Clinical Summary ---
Author Organization [facility] Outline Address [address] [place] [address] Care Team Providers Care General Agent Name Role Phone Alex Low Primary Care Provider Unavaila ble Source Comments [facility],non-owned Affiliates and Associated Physician Practices is amultiple site organization consisting of ambulatory clinics and hospital sitesin [place], [place], [place] and [place]. This disclosure is being madepursuant to the Care Everywhere program and may not contain all information available regarding this patient. Last updated 18.[facility] Outline Allergies No known active allergies Medications * [...] . Pt has an appt with his Site Monitor tomorrow and will start Harvoni October 03, get [facility] 10/31/14 and f/u with A Waylon DENNY 11/25/14. Chronic obstructive pulmonary disease 07/22/2014 Atherosclerotic heart diseas e of [place] coronary artery without angina pectoris 07/22/2014 Overview [...] Zoster Hzv Vacc Recombinant Inj Im 04/15/2020, Family History Medical History Relation Name Comments Cancer - Lung Father Cancer - Other Mother Brain Cancer - Other Sister Throat Relation Name Status Comments Father Mother Sister Social History Tobacco Use Types Packs/Day Years Used Date Smoking Tobacco: Former Cigars Q uit: 02/07/2020 Smokeless Tobacco: Never Tobacco Cessation:Counseling Given: No Comments:1 a day Alcohol Use Standard Drinks/Week Comments Yes 8 (1 standard drink = 0.6 oz pur e alcohol) beers/week Sex and Gender Information Value Date Recorded Sex Assigned at Not on file Gender Identity Male 07/13/2017 10:31 PM PAINTER SHIPYARD Sexual Orientation Not on file Last Filed [...] Mass Index 27.89 09/22/2021 8:49 AM CDT Plan of Treatment Health Maintenance Due Date Last Done Comments COLOGUARD (AGES 45-75) - COLON CA SCREENING 1948 COLON MONITORING 1948 COLONOSCOPY - COLON CA SCREENING 1948 CT COLONOGRAPHY - COLON CA SCREENING 1950 Colorectal Cancer Screening 1950 FIT - COLON CA SCREENING 1950 FLEX SIG - COLON CA SCREENING 1950 DTAP/TDAP/TD VACCINES (1 - Tdap) 12/24/1967 PNEUMOCOCCAL VACCINE 50+ (1 of 2 - PCV) 12/24/1967 Respiratory Syncytial Virus (RSV) Vaccine Pt: or over 60 yrs (1 - 1-dose 75+ series) 12/24/2023 COVID-19 VACCINE ( season) 2024 08/12/2020, 07/15/2020 INFLUENZA VACCINE (#1) 2024 02/14/2020, 2018 DEPRESSION SCREENING 06/05/2024 MEDICARE AWV CALENDAR YEAR 2024 HEPATITIS C SCREENING Completed 10/26/2015 , 10/23/2015, 07/28/2015, Additional history exists ZOSTER VACCINE Completed 04/15/2020, 02/14/2020 HEPATITIS B VACCINE Aged Out No longe r eligible based on patient's age to complete this topic HIB VACCINE Aged Out No longer eligi ble based on patient's age to complete this topic HPV VACCINE Aged Out No longer eligi ble based on patient's age to complete this topic MENINGOCOCCAL (Group B) VACCINE SHARED DECISION-MAKING Aged Out No longer eligible based on patient's age to complete this topic MENINGOCOCCAL GROUPS A/C/Y/W VACCINE Aged Out No longer eligible based on patient's age to complete this topic Medical Devices Implanted Type Area Project Coordinator Device Identifier Shelf Expiration Date Model / Serial / Lot Sabrina Modular Revision System Straight Tapered Splined Distal Stem 17mm X 190mm W/ Locking Screw Implanted:Qty: 1 on 07/18/2017 by Rishabh Maddox MD at [facility] [place] Left: Hip [employer] 09/03/2023 [id number] / / [id number] Trident X3 O Degree Polyethylene Insert Implanted:Qty: 1 on 07/18/2017 by Rishabh Maddox MD at [facility] [place] Left: Hip [employer] 09/14/2020 [id number] / / [id number] Sabrina Modular Revision System Cone Proximal Body/Type I Taper Implanted:Qty: 1 on 07/18/2017 by Rishabh Maddox MD at [facility] [place] Left: Hip [employer] 02/02/2021 [id number] / / [id number] Slv Centering G7 Std Ofst Tpr Hip Ti Ty Implanted:Qty: 1 on 07/18/2017 by Rishabh Maddox MD at [facility] [place] Left: Hip [employer] 12/22/2026 [id number] / / [id number] Head Fem 40mm Hip Blx D [employer] Optn G7 Implanted:Qty: 1 on 07/18/2017 by Rishabh Maddox MD at [facility] [place] Left: Hip [employer] 11/14/2026 [id number] / / [id number] Satnam Hip Tot Rev 50% Of 2014 Implanted:Qty: 1 on 07/18/2017 by Rishabh Maddox MD at [facility] [place] [employer] HR2 TOTAL HIP REVISION RADHA BILL ONLY / / Constrained Acetabular Insert Implanted:Qty: 1 on 08/11/2017 by Rishabh Maddox MD at [facility] [place] Left: Hip [employer] [place] [employer] [id number] / / Head Fem -3mm Ofst 28mm Hip Ty 1 Cocr G7 Implanted:Qty: 1 on 08/11/2017 by Rishabh Maddox MD at [facility] [place] Left: Hip [employer] [id number] / / Procedures Procedure Name Priority Date/Time Associated Diagnosis Comments HEPATITIS C AB W/RFLX TO HCV RNA QN PCR Routine 10/23/2015 9:19 AM CDT from Last 3 Months or Most Recently Relevant to Health Maintenance Results * (ABNORMAL) HEPATITIS C AB W/RFLX TO HCV RNA QN PCR (10/23/2015 9:19 AM CDT) Hepatitis C Antibody REACTIVE( A) NON-REACT CK [facility] ([facility]) Signal/Cutoff 26.00(H) <1.00 [facility]) Comment: Following CDC recommendations (MMWR No. 62, 2013), this patient's HCV Antibody Reactive sample will be tested for the presence of HCV RNA by a Nucleic Acid Amplification Test (NAAT) to determine if the patient has an active HCV infection. REPORT COMMENT: FASTING:NO Test Performed at: [facility] [id number] [place] [phone] JERRICA MATTHEWS DO,MPH 10/23/2015 9:19 AM CDT 10/23/2015 9:20 AM CDT Mariaelena Connors PA-C LAB - CHEMISTRY O RDERABLES [facility]) from Last 3 Months or Most Recently [...] 11:52 AM 07/10/2018 11:59 AM Care Teams General Agent Relationship Specialty Start Date End Date Alex Low Update Information PCP - General 12/22/20
--- OUTSIDE RECORDS SUMMARY | 2024-08-16 11:39 | XMS_ITS | Continuity of Care Document ---
Author Organization [facility] Address [address] [facility] [address] [place] [address] Phone Care Team Providers Care Missing Persons Investigator Name Role Phone Zelalem Harris MD Unavailable Unavailable Procedures Procedure Date YAG PC AFTER CATARACT LASER SURGERY AFTER CATARACT LASER SURGERY EYE EXAM & TREATMENT CATARACT SURG W/IOL, 1 STAGE CATARACT SURG W/IOL, 1 STAGE OFFICE/OUTPATIENT VISIT, [facility] OPHTHALMIC BIOMETRY OPHTHALMIC BIOMETRY Advance Directives Directive Yes / No Effective Date File Name No Information Encounters Encounter Description Practice Location Reason(s) For Visit Diagnoses Date Provider Providers Copied on Encounter Ophthalmology [facility], [address] [place], [place] [address], [place], [place], [id number], tel:[phone] [address] [place] [address] No Information 6 Steven Zelalem. [address] [facility], [address], [place], [address], [place]. tel:[phone] Referring Provider: Zelalem Villalba, [address] [place] [address] [address], [place], [address]. tel:[phone] Ophthalmology [facility], [address] [place] [address] [address], [place], [place], [id number], [place] tel:[phone] [address] [place] [address] No Information 6 Steven Zelalem. [address] [facility], [address], [place], [address], [place]. tel:[phone] Referring Provider: Zelalem Villalba, [address] [place] [address] [address], [place], [address]. tel:[phone] [facility], [address] [facility] [address], [place], [place], [id number], [place] tel:[phone] [facility] No Information 6 Steven Zelalem. [address], [address], [place], [address], [place]. tel:[phone] Referring Provider: Zelalem Villalba, [address], [place], [address]. tel:[phone] [facility], [address] [facility] [address], [place], [place], [id number], [place] tel:[phone] [address] [facility] No Information 5 Steven Zelalem. [address] [facility], [address], [place], [address], [place]. tel:[phone] Referring Provider: Zelalem Villalba, [address] [facility] [address], [place], [address]. tel:[phone] [facility], [address] [facility] [address], [place], [place], [id number], [place] tel:[phone] [address] [facility] No Information 5 Steven Zelalem. [address] [facility], [address], [place], [address], [place]. tel:[phone] Referring Provider: Zelalem Villalba, [address], [place], [address]. tel:[phone] OFFICE/OUTPA TIENT VISIT, [facility], [address], [place], [place], [id number], [place] tel:[phone] [facility] No Information [address]em[address], [address], [place], [address], [place]. tel:[phone] Referring Provider: Zelalem Villalba, [address], [place], [address]. tel:[phone] Family History Family Member Type Diagnosis Age At Onset No Information Payers Payer name Insurance type Covered constitution party ID Authorprimo nolan(s) [facility] [id number] Social History Type Description Quantity Date Captured Comments Sex Male Smoking Status No Information Chief Complaint And Reason For Visit No Information Plan Of Treatment Date Type Action Status No Information History Of Present Illness Encounter Date Complaint History Of Prese nt Illness No Information Instructions Date Instruction Additional Infor mation No Information Assessments Type Assessment Date No Information
--- OUTSIDE RECORDS SUMMARY | 2024-08-16 11:39 | XMS_ITS | Encounter Summary ---
Author Organization [facility] Address [address] [facility] [address] [place] [address] Care Team Providers Care Beauty Culturist Apprentice Name Role Phone Luisito Connors MD Primary Care Provider [phone] Luisito Connors MD Primary Care Provider + [phone] Luisito Connors MD Unavailable [phone] Savannah Corral MD Primary Care Provider + [phone] Alex Low Primary Care Provider [phone] Shonda Mcdaniels Primary Care Provid er Encounter Details Date Type Department Care Team (Late st Contact Info) Description 06/30/2016 Orders Only [facility] ProviderGab MD [address] [place] [address] Social History Tobacco Use Types Packs/Day Years Used Date Smoking Tobacco: Never Cigarettes Qu it: 06/05/2010 Alcohol Use Standard Drinks/Week Comments No 0 (1 standard drink = 0.6 oz pur e alcohol) Sex and Gender Information Value Date Recorded Sex Assigned at Not on file Legal Sex Male 4:05 PM GEOPHYSICAL COMPUTER Gender Identity Not on file Sexual Orientation Not on file documented as of this encounter Plan of Treatment Not on file documented as of this encounter Procedures Procedure Name Priority Date/Time Associated Diagnosis Comments CARDIOLOGY REPORT 06/30/2016 documented in this encounter Results * CARDIOLOGY REPORT (06/30/2016) Anatomical Region Laterality Modality Other Narrative 06/30/2016 Ordered by an unspecified provider. us Historical Provider [facility] STEPH[facility] PADILLA Final Result documented in this encounter Visit Diagnoses Not on filedocumented in this encounter Care Teams Beauty Culturist Apprentice Relationship Specialty Start Date End Date Luisito Connors MD [address] [place] [address] PCP - General 02/10/14 11/15/16 Luisito Connors MD [address] [place] [address] PCP - General 11/16/16 01/03/18 Savannah Corral MD [address] [place] [address] PCP - General Family Practice 01/04/18 06/22/20 Alex Low PA [address] [place] [address] PCP - General Physician Scientific Laboratory Supervisor 06/23/20 09/06/21 Shonda Mcdaniels PA [address] [place] [address] PCP - General Physician Scientific Laboratory Supervisor 09/07/21 Luisito Connors MD [address] [place] [address] 11/16/16 06/22/20 documented as of this encounter
--- OUTSIDE RECORDS SUMMARY | 2024-08-16 11:39 | XMS_ITS | Clinical Summary ---
Author Organization [facility] Address [address] [place] [address] Care Team Providers Care Crystal Slicer Name Role Phone Shonda Mcdaniels Primary Care Provid er Allergies No known active allergies Medications cephalexin [...] coronary artery 10/06/2014 Overview (09/09/2016): Coronary atherosclerosis Encounters Date Type Department Care Team Description 06/20/2024 9:15 AM COMPUTER HELP DESK SPECIALIST Office Visit [facility] Cardiology [address] [place] [address] Lucas Gutierres MD History of coronary artery stent placement (Primary Dx); Permanent atrial fibrillation (HCC) from Last 3 Months Surgical History Surgery Date Site/Laterality Comments TOTAL HIP ARTHROPLASTY 07/06/2017 - 08/02/2017 Medical History Medical History Date Comments Hx Other Medical bilateral hip r eplacements; Comments: JFB 02/10/2014 - Family History Medical History Relation Name Comments Alcohol abuse Father Family history of alcoholism - (Added by TW Conv) Cancer Father Family history of malignant neoplasm - (Added by TW Conv) Arthritis Mother Family history of arthritis - (Added by TW Conv) Cancer Mother Family history of malignant neoplasm - (Added by TW Conv) Heart disease Mother Family history of cardiac disorder - (Added by TW Conv) Cancer Sister throat cancer Relation Name Status Comments Father Mother Sister [...] on file Legal Sex Male 4:05 PM COMPUTER HELP DESK SPECIALIST Gender Identity Not on file Sexual Orientation Not on file Obstetrics History Last Filed Vital Signs Vital Sign Reading Time Taken Comments Blood Pressure 100/68 06/20/2024 9:22 AM COMPUTER HELP DESK SPECIALIST Pulse 69 06/20/2024 9:22 AM COMPUTER HELP DESK SPECIALIST Temperature - - Respiratory Rate - - Oxygen Saturation 96% 06/20/2024 9:22 AM COMPUTER HELP DESK SPECIALIST Inhaled Oxygen Concentration - - Weight 88.7 kg (195 lb 8 oz) 06/20/2024 9:22 AM COMPUTER HELP DESK SPECIALIST Height 180.3 cm (5' 11 ) 06/20/2024 9:22 AM COMPUTER HELP DESK SPECIALIST Body Mass Index 27.27 06/20/2024 9:22 AM COMPUTER HELP DESK SPECIALIST Plan of Treatment Health Maintenance Due Date Last Done Comments Colon Cancer Screening-Colonoscopy 1948 Depression Screening 1948 Fall Risk Assessment 1948 Hepatitis B Screening 1966 Lung Cancer Screening 1998 Abdominal Aortic Aneurysm (A AA) Screen 2013 Well Visit 65+ 2013 Covid-19 Vaccine (3 - 2023-2 5 season) 2024 08/12/2020, 07/15/2020 Influenza Vaccine (#1) 2024 , 03/20/2018, 03/19/2017, Additional history exists DTaP/Tdap/Td Vaccine (3 - Td or Tdap) 08/28/2025 08/29/2015, 06/05/2012 Hepatitis C Screening Completed 10/06/2014, 014 Pneumococcal vaccine 65+ Completed 018, 03/19/2017, 02/18/2016 Zoster Vaccine Completed 04/15/2020, 02/14/2020 Insurance MEDICARE SOLUTIONS MEDICARE SOLUTIONS MEDICARE SOLUTIONS Care Teams Crystal Slicer Relationship Specialty Start Date End Date Shonda Mcdaniels PA PCP - General Physician Service Coordinator [facility] Facility 09/07/21
[2024-08-16 12:13] LABS: Influenza A QL RT-PCR Negative (Negative); Influenza B QL RT-PCR Negative (Negative); RSV RNA, RT-PCR Negative (Negative); SARS-CoV-2 RNA PCR Negative (Negative)
== END 2024-08-16 10:50 | disposition home or self-care (01) ==
LOC: ANHLAB 10:52
PROVIDERS: PCP Family Medicine; Visit Provider Nurse Practitioner Family
DX: Z20.828 Contact with and (suspected) exposure to other viral communicable diseases (principal); R05.9 Cough, unspecified; R06.00 Dyspnea, unspecified; R53.83 Other fatigue; Z86.16 Personal history of COVID-19
CPT/HCPCS: 87637

== ENCOUNTER 2024-08-27 12:45 | Emergency (ER) | payer MEDICARE, SELFPAY ==
--- NOTE | ~2024-08-27 | XR_ITS ---
XR hip LT 2V w AP pelvis Ordering provider: Mariela Cao NP History: . pain LT hip x 5 days, hx of revision and infection 2018 . Comparison: July 13, 2017 FINDINGS: BONES: No acute fracture or dislocation. HIP JOINT SPACES: Bilateral hip arthroplasty. SACROILIAC JOINT SPACES/LUMBAR SPINE: The sacroiliac joint spaces are normal. Mild degenerative collins es of the visualized lower lumbar spine. PUBIC SYMPHYSIS: Normal. SOFT TISSUES: Normal. Soft tissue ossification seen in the left side. IMPRESSION: No acute osseous abnormality pelvis and left hip. Bilateral hip arthroplasty. Reviewed, dictated and finalized at location A.
[2024-08-27 13:03] VITALS: BP 128/72; PULSE 86; RESP 16; TEMP 36.7; O2SAT 99
--- NOTE | 2024-08-27 13:15 | ED.EXTPRO ---
HPI - Extremity Problem General Chief complaint: Extremity Problem,Nontraumatic Stated complaint: left hip pain Time Seen by Provider: 08/27/24 13:41 Source: patient and RN notes reviewed Mode of arrival: ambulatory Limitations: no limitations History of Present Illness HPI Narrative: 73-year-old male presents with concern for left hip pain. Reports history of having hip replacement in that hip, he site complications such as the appliance going out of place and having an infection. Reports he takes cephalexin daily to prevent infection. He reports about 5 days ago he began having more pain, worsening when he gets up from sitting or lying down. He reports he has been doing a lot of gardening recently. He has not taken his temperature but says he may have felt feverish, he is not sure. MD Complaint: extremity pain Related Data Home Medications ?Medication ?Instructions ?Recorded ?Confirmed ?Last Taken ?Type atorvastatin 20 mg tablet 20 mg PO HS 06/06/19 07/10/24 01/16/24 20:00 History apixaban 5 mg tablet (Eliquis) 5 mg PO BID 08/27/24 08/27/24 Unknown History azithromycin 250 mg tablet mg 08/27/24 Unknown History fluticasone propionate 50 1 spray intranasal BID 08/27/24 08/27/24 Unknown History mcg/actuation nasal spray,suspension (Flonase Allergy Relief) gabapentin 100 mg capsule 100 mg PO QHS 08/27/24 08/27/24 Unknown History glycopyrrolate-formoterol inhalation 08/27/24 Unknown History metoprolol succinate 25 mg 25 mg PO DAILY 08/27/24 08/27/24 Unknown History tablet,extended release 24 hr (Toprol XL) nitroglycerin 0.4 mg sublingual 0.4 mg sublingual Q5-15M PRN chest 08/27/24 08/27/24 Unknown History tablet (Nitrostat) pain sertraline 25 mg tablet 25 mg PO Q24H 08/27/24 08/27/24 Unknown History tamsulosin 0.4 mg capsule 0.4 mg PO Q24H 08/27/24 08/27/24 Unknown History Allergies Allergy/AdvReac Type Severity Reaction Status Date / Time No Known Drug Allergies Allergy Unknown Unknown Verified 08/27/24 13:05 Review of Systems Review of Systems: CONSTITUTIONAL: Denies malaise, chills, sweats, or fever. CARDIOVASCULAR: Denies chest pain, palpitations, or edema. RESPIRATORY: Denies cough or dyspnea. SKIN: Denies rash or itching, bruising, redness, swelling. MUSCULOSKELETAL: Reports left hip pain NEUROLOGIC: Denies numbness, weakness All systems reviewed & are unremarkable except as noted in HPI and below PMFSH Past Medical History Medical History Irritable bowel syndrome with constipation Obstructive sleep apnea Myelopathy concurrent with and due to spinal stenosis of cervical region Cervical radiculopathy CAD (coronary artery disease) Hyperlipidemia Hypertension COPD (chronic obstructive pulmonary disease) Tobacco abuse Surgical History Surgical History History of total right hip arthroplasty History of total left hip arthroplasty History of coronary artery stent placement Status post total hip replacement, bilateral Family History Family History Father Family history of malignant neoplasm Mother Family history of malignant neoplasm of brain Sibling Family history of throat cancer Social History Social History Social History: Heavy marijuana & cocaine smoking, none x last 14 year. Never smoked cigarettes. cigars x 30+ years Smoking packs per day: 1 Smoking cigarettes per day: 20.0 Years smoked: 45 Smoking pack-years: 45.00 Smoking status: Former smoker Second hand tobacco smoke exposure: Yes Alcohol intake: current Drinks per week: 12 Alcohol use details: occasionally Substance use: former Substance use type: former substance user, marijuana and crack/cocaine Last use: 2007 Do You Feel Safe in your Home?: Yes Lack of Transportation: No Lack of Food: Never True Current Housing: I Have Housing Concerned About Future Housing: No Difficulty Paying Gas/Electric Bills: No Difficulty Paying for Meds: No Currently Unemployed: No Education: Decline to Answer Difficulty w/ Childcare or Family Care: No Living arrangements: with family Occupation/Education: retired Gender identity (if verbalized by the patient): Male Sexual Orientation (if Verbalized by the Patient): Straight or Heterosexual Spiritual care concerns: No Agree to blood products: Yes Comments At time of signature, agree with nursing past medical, surgical, social and family history. There is no relevant family history pertinent to the presenting complaint Exam Narrative: GENERAL: Well-appearing, well-nourished, and in no acute distress. HEAD: Normocephalic, atraumatic. EYES: PERRLA, conjunctivae clear NECK: Supple. CHEST: Speaks in full sentences. No respiratory distress. HEART: Regular rate and rhythm. Normal and equal peripheral pulses. EXTREMITIES: Left lower extremity has grossly normal range of motion. Normal sensation with sensitivity to light touch and pain. No obvious deformity, alignment normal, nearby joints and structures intact. Skin warm, dry, pink. Capillary refill less than 3 seconds. SKIN: Warm, dry, no rash. NEURO: Alert and oriented x3. PSYCH: Normal mood and affect Course Course Emergency Course: Discussed limited diagnostic capability at [facility], offered transfer to emergency room for further evaluation, patient is would like to try treatment for chronic pain flare up. They understand reasons to go to the emergency room if symptoms worsen. They will call their primary doctor for follow-up. Patient is aware of diagnosis, understands and agrees to treatment plan. Anticipatory guidance given. Patient agrees to follow-up as directed and is aware of reasons to seek care at the emergency department. Portions of this record may have been created with voice recognition software Level of Care: [facility] Visit Vital Signs Vital signs: Vital Signs Temperature 98.0 F 08/27/24 13:03 Pulse Rate 86 08/27/24 13:03 Respiratory Rate 16 08/27/24 13:03 Blood Pressure 128/72 08/27/24 13:03 Pulse Oximetry 99 08/27/24 13:03 Oxygen Delivery Room Air 08/27/24 13:03 Temperature 98.0 F 08/27/24 13:03 Pulse Rate 86 08/27/24 13:03 Respiratory Rate 16 08/27/24 13:03 Blood Pressure 128/72 08/27/24 13:03 Pulse Oximetry 99 08/27/24 13:03 Oxygen Delivery Room Air 08/27/24 13:03 Reviewed. MDM - Extremity (Nontraumatic) MDM Narrative Medical decision making narrative: Patients pain is consistent with musculoskeletal etiology. No signs of neurological or vascular compromise on exam. Compartments and tissues are soft without signs of compartment syndrome. Pain is felt appropriate for further evaluation on an outpatient basis. Imaging Data My impression: Images reviewed, interpreted by radiologist, agree, see report. Radiologist's impression: XR hip LT 2V w AP pelvis Ordering provider: Mariela Cao NP History: . pain LT hip x 5 days, hx of revision and infection 2018 . Comparison: July 13, 2017 FINDINGS: BONES: No acute fracture or dislocation. HIP JOINT SPACES: Bilateral hip arthroplasty. SACROILIAC JOINT SPACES/LUMBAR SPINE: The sacroiliac joint spaces are normal. Mild degenerative changes of the visualized lower lumbar spine. PUBIC SYMPHYSIS: Normal. SOFT TISSUES: Normal. Soft tissue ossification seen in the left side. IMPRESSION: No acute osseous abnormality pelvis and left hip. Bilateral hip arthroplasty. Critical Care Time Critical Care Time Critical Care Time: No Discharge Plan Discharge Clinical Impression: Acute pain of left hip Patient Disposition: Home, Self-Care Condition: Stable Instructions: Hip Pain (ED) Additional Instructions: Avoid activities that cause pain until the pain subsides. Ice to the area 20-30 minutes 4-6 times a day Tylenol for lesser pain Ibuprofen regularly for the next 2-3 days for the inflammation Follow up with your primary care provider for further evaluation If the condition worsens seek treatment in the emergency room immediately. Patient Language: Brazilian Prescriptions: New cyclobenzaprine 10 mg tablet 10 mg PO TID PRN (Reason: muscle spasm) Qty: 20 0RF prednisone 20 mg tablet 40 mg PO DAILY 5 Days Qty: 10 0RF No Action tamsulosin 0.4 mg capsule 0.4 mg PO Q24H gabapentin 100 mg capsule 100 mg PO QHS azithromycin 250 mg tablet sertraline 25 mg tablet 25 mg PO Q24H glycopyrrolate-formoterol [Bevespi Aerosphere] inhalation Eliquis 5 mg tablet 5 mg PO BID fluticasone propionate [Flonase Allergy Relief] 50 mcg/actuation spray,suspension 1 spray intranasal BID Rx Instructions: administer into each nostril metoprolol succinate [Toprol XL] 25 mg tablet extended release 24 hr 25 mg PO DAILY nitroglycerin [Nitrostat] 0.4 mg tablet, sublingual 0.4 mg sublingual Q5-15M PRN (Reason: chest pain) Rx Instructions: do not exceed 3 doses per episode atorvastatin 20 mg tablet 20 mg PO HS Follow-up/Referrals: Katiana Duncan MD [Primary Care Provider] - Time of Disposition: 13:50
== END 2024-08-27 13:55 | disposition home or self-care (01) ==
PROVIDERS: Emergency Provider Nurse Practitioner; PCP Family Medicine
DX: M25.552 Pain in left hip (principal); Z87.891 Personal history of nicotine dependence; I25.10 Atherosclerotic heart disease of native coronary artery without angina pectoris; I10 Essential (primary) hypertension; E78.5 Hyperlipidemia, unspecified; J44.9 Chronic obstructive pulmonary disease, unspecified; K58.9 Irritable bowel syndrome, unspecified; Z96.643 Presence of artificial hip joint, bilateral; Z95.5 Presence of coronary angioplasty implant and graft; Z79.01 Long term (current) use of anticoagulants
CPT/HCPCS: 73502; 99213; G0463

== ENCOUNTER 2024-09-16 13:39 | Outpatient (CLI) | payer MEDICARE, SELFPAY ==
--- NOTE | ~2024-09-16 | CT_ITS ---
CT Scan of the Chest without Contrast: Clinical Indication: Lung cancer screening, nicotine dependence Technique: Contiguous sections were acquired throughout the chest without intravenous contrast. Dose reduction technique was used on this scan by utilizing automated exposure control and iterative recon struction technique. The dose-length product (DLP) was 145.99 mGy-cm. COMPARISON: 09/11/2023 Findings: There is no evidence of any significant mediastinal, hilar or axillary lymphadenopathy. Extensive cor onary artery calcifications present. There is no evidence of pleural or pericardial effusion. The lungs are clear, aside from calcified left upper lobe granuloma. Images through the upper abdomen reveal no abnormalities. Impression: Lung RADS 2: Benign appearance. 12 month follow-up screening CT advised. Reviewed, dictated and finalized at location . Impression: Lung RADS 2: Benign appearance. 12 month follow-up screening CT advised.
--- OUTSIDE RECORDS SUMMARY | 2024-09-16 15:04 | XMS_ITS | Encounter Summary ---
Author Organization [facility] Address [address] [place] [address] Care Team Providers Care Salesman/Owner Name Role Phone Savannah Mcdonald MD Primary Care Provider [phone] Savannah Mcdonald MD Primary Care Provider [phone]- [phone] Alex Low Primary Care Provider Unavaila ble Savannah Mcdonald MD Primary Care Provider [phone]- [phone] Savannah Mcdonald MD Primary Care Provider +- [phone] Alex Low Primary Care Provider Unavaila ble Encounter Details Date Type Department Care Team (Late st Contact [facility]) Description 06/28/2018 Telephone [facility] Urology [address] [place] [address] Geo Cameron MD Social History [...] at Not on file Legal Sex Male 5:34 PM SUPERVISOR PACKING Gender Identity Male 07/13/2017 10:31 PM SUPERVISOR PACKING Sexual Orientation Not on file documented as of this encounter Functional Status * Is person deaf or have serious hearing difficulty? Answer Date of Assessment Author No 08/15/2017 12:16 PM Martita Rae RN * Is person blind or have serious difficulty seeing? Answer Date of Assessment Author No 08/15/2017 12:16 PM CDT Martita Gutierrez RN * Does person have serious difficulty walking/climbing stairs? Answer Date of Assessment Author No 08/15/2017 12:16 PM CDT Martita Gutierrez RN * Does person have difficulty dressing/bathing? Answer Date of Assessment Author No 08/15/2017 12:16 PM CDT Martita Gutierrez RN * Does person have difficulty doing errands alone? Answer Date of Assessment Author No 08/15/2017 12:16 PM CDT Martita Gutierrez RN documented as of this encounter Mental Status * Does person have difficulty concentrating/remembering/making decisions? Answer Entry Date Author No 08/15/2017 12:16 PM CDT Martita Gutierrez RN documented in this encounter Miscellaneous Notes * Telephone Encounter - Yasmine Choe - 06/28/2018 9:06 AM CST PATIENT IS SCHEDULED FOR PROCEDURE ON 07/10/18 @ 1:45PM WITH DR. CAMERON. CPT CODE 12393 CYSTOSCOPY WITH DVIU DX CODE N35.812 48 LAB COMPLETED ON 06/26/18 SURGERY CONFIRMATION SENT 06/28/18 Yasmine Choe 06/28/2018 9:00 AM RVISOR PACKING documented in this encounter Plan of Treatment Upcoming Encounters Date Type Department Care Team (Late st Contact Info) Description 11/19/2024 9:30 AM CDT Office Visit [facility] - Orthopedic Surgery [address] [place] [address] Dago Iraheta MD [address] [facility] [address] [place] [address] documented as of this encounter Visit Diagnoses Not on filedocumented in this encounter Additional Health Concerns Infection Onset Date Last Indicated Resolved Time COVID-19 Under Investigation 06/04/2020 06/04/2020 06/04/2020 4:23 PM SUPERVISOR PACKING COVID-19 Under Investigation 09/07/2020 09/07/2020 09/07/2020 8:30 PM CDT documented as of this encounter Care Teams Salesman/Owner Relationship Specialty Start Date End Date Savannah [...]
--- OUTSIDE RECORDS SUMMARY | 2024-09-16 15:04 | XMS_ITS | Clinical Summary ---
Author Organization [facility] [employer] Address [address] [place] [address] Care Team Providers Care Taste Tester Name Role Phone Alex Low Primary Care Provider Unavaila ble Source Comments [facility],non-owned Affiliates and Associated Physician Practices is amultiple site organization consisting of ambulatory clinics and hospital sitesin [place], [place]. This disclosure is being madepursuant to the Care Everywhere program and may not contain all information available regarding this patient. Last updated 18.[facility] [employer] Allergies No known active allergies Medications * Be aware that medications may not be up to date on this document. Alwaysverify current medications with the patient. atorvastatin (LIPITOR) 20 MG tablet Take 20 [...] . Pt has an appt with his Chief Digital Media Officer tomorrow and will start Harvoni October 03, get [facility] labs 10/31/14 and f/u with Aracely DENNY 11/25/14. 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 Encounters Date Type Department Care Team Description 08/26/2024 Travel from Last 3 Months Immunizations Immunization Administration Dates Next Due INFLUENZA VACCINE, ADJUVANTE [...] on file Legal Sex Male 5:34 PM OPTOELECTRONICS ENGINEER Gender Identity Male 07/13/2017 10:31 PM OPTOELECTRONICS ENGINEER Sexual Orientation Not on file Last [...] 09/22/2021 8:49 AM CDT Plan of Treatment Upcoming Encounters Date Type Department Care Team (Late st Contact Info) Description 11/19/2024 9:30 AM CDT Office Visit [facility] - Orthopedic Surgery [address] [place] [address] Dago Iraheta MD [address] [address] Health Maintenance Due Date Last Done Comments [...] - 1-dose 75+ series) 12/24/2023 COVID-19 VACCINE (3 - 2023- season) 2024 08/12/2020, 07/15/2020 DEPRESSION SCREENING 06/05/2024 MEDICARE AWV CALENDAR YEAR 2024 INFLUENZA VACCINE (Season Ended) 2025 02/14/2020, 04/22/2019 HEPATITIS C SCREENING Completed 10/26/2015 , 10/23/2015, [...] this topic Medical Devices Implanted Type Area Trampoline Team Coach Device Identifier Shelf Expiration Date Model / Serial / Lot Sabrina Modular Revision System Straight Tapered Splined Distal Stem 17mm X 190mm W/ Locking Screw Implanted:Qty: 1 on 07/18/2017 by Rishabh Maddox MD at [facility] Left: Hip [employer] 09/03/2023 [id number] / / [id number] Trident X3 O Degree Polyethylene Insert Implanted:Qty: 1 on 07/18/2017 by Rishabh Maddox MD at [facility] Left: Hip [employer] 09/14/2020 623-00-40G / / [id number] Sabrina Modular Revision System Cone Proximal Body/Type I Taper Implanted:Qty: 1 on 07/18/2017 by Rishabh Maddox MD at [facility] Left: Hip [employer] 02/02/2021 [id number] / / [id number] Slv Centering G7 Std Ofst Tpr Hip Ti Ty Implanted:Qty: 1 on 07/18/2017 by Rishabh Maddox MD at [facility] Left: Hip [employer]ha [employer] 12/22/2026 [id number] / / [id number] Head Fem 40mm Hip Blx D Biolox Optn G7 Implanted:Qty: 1 on 07/18/2017 by Rishabh Maddox MD at [facility] Left: Hip [employer] 11/14/2026 [id number] / / [id number] Satnam Hip Tot Rev 50% Of 2014 Implanted:Qty: 1 on 07/18/2017 by Rishabh Maddox MD at [facility] Radha [employer]omet HR2 TOTAL HIP REVISION RADHA BILL ONLY / / Constrained Acetabular Insert Implanted:Qty: 1 on 08/11/2017 by Rishabh Maddox MD at [facility] Left: Hip [employer] 690-00-28G / / Head Fem -3mm Ofst 28mm Hip Ty 1 Cocr G7 Implanted:Qty: 1 on 08/11/2017 by Rishabh Maddox MD at [facility] Left: Hip [employer]ha [employer] [id number] / / Procedures Procedure Name Priority Date/Time Associated Diagnosis Comments HEPATITIS C AB W/RFLX TO HCV RNA QN PCR Routine 10/23/2015 9:19 AM CDT from Last 3 Months or Most Recently Relevant to Health Maintenance Results * (ABNORMAL) HEPATITIS C AB W/RFLX TO HCV RNA QN PCR (10/23/2015 9:19 AM CDT) Hepatitis C Antibody REACTIVE( A) NON-REACT CK [facility] Signal/Cutoff 26.00(H) <1.00 [facility] Comment: Following CDC recommendations (MMWR No. 62, 2013), this patient's HCV Antibody Reactive sample will be tested for the presence of HCV RNA by a Nucleic Acid Amplification Test (NAAT) to determine if the patient has an active HCV infection. REPORT COMMENT: FASTING:NO Test Performed at: mention [address] [facility] [place] [address] JERRICA MATTHEWS DO,MPH 10/23/2015 9:19 AM CDT 10/23/2015 9:20 AM CDT us Mariaelena Connors PA-C LAB - CHEMISTRY ORDERABLE S Final Result [facility] [id number] from Last 3 Months or Most Recently Relevant to Health Maintenance Insurance [facility] MEDICARE ADV [facility] MANAGED MEDICARE ADV Advance Directives * Full Code (Latest Code [...] 11:52 AM 07/10/2018 11:59 AM Care Teams Taste Tester Relationship Specialty Start Date End Date Alex Low Update Information PCP - General 12/22/20
--- OUTSIDE RECORDS SUMMARY | 2024-09-16 15:04 | XMS_ITS | Continuity of Care Document ---
Author Organization [facility] Address [address] [facility] [address] [address] [place] [address] Phone Care Team Providers Care Acoustical Tile Drill Press Operator Name Role Phone Zelalem Harris MD Unavailable Unavailable Procedures Procedure Date YAG PC AFTER CATARACT LASER SURGERY AFTER CATARACT LASER SURGERY EYE EXAM & TREATMENT CATARACT SURG W/IOL, 1 STAGE CATARACT SURG W/IOL, 1 STAGE OFFICE/OUTPATIENT VISIT, [facility] OPHTHALMIC BIOMETRY OPHTHALMIC BIOMETRY Advance Directives Directive Yes / No Effective Date File Name No Information Encounters Encounter Description Practice Location Reason(s) For Visit Diagnoses Date Provider Providers Copied on Encounter Ophthalmology [facility], [address] [place], [place] [address] [address], [place], [place], [id number], tel:[phone] [address] [place] [address] No Information 6 Steven Zelalem. [address] [facility], [address], [place], [address], [place]. tel:[phone] Referring Provider: Zelalem Villalba, [address] [place] [address] [address], [place], [address]. tel:[phone] Ophthalmology [facility], [address] [place] [address] [address], [place], [place], [id number], [place] tel:[phone] [address] [place] [address] No Information 6 Steven Zelalem. [address] [facility], [address], [place], [address], [place]. tel:[phone] Referring Provider: Zelalem Villalba, [address] [place] [address] [address], [place], [address]. tel:[phone] [facility], [address], [place], [place], [address], [place] tel:[phone] [facility] No Information 6 Steven Zelalem. [address], [address], [place], [address], [place]. tel:[phone] Referring Provider: Zelalem Villalba, [address], [place], [address]. tel:[phone] [facility], [address], [place], [place], [address], [place] tel:[phone] [facility] No Information 5 Steven Zelalem. [address] [facility], [address], [place], [address], [place]. tel:[phone] Referring Provider: Zelalem Villalba, [address] [facility] [address], [place], [address]. tel:[phone] [facility], [address], [place], [place], [address], [place] tel:[phone] [facility] No Information 5 Steven Zelalem. [address] [facility], [address], [place], [address], [place]. tel:[phone] Referring Provider: Zelalem Villalba, [address], [place], [address]. tel:[phone] OFFICE/OUTPA TIENT VISIT, [facility], [address], [place], [place], [address], [place] tel:[phone] [facility] No Information 4 Steven Zelalem. [address], [address], [place], [address], [place]. tel:[phone] Referring Provider: Zelalem Villalba, [address], [place], [address]. tel:[phone] Family History Family Member Type Diagnosis Age At Onset No Information Payers Payer name Insurance type Covered republican ID Authorarchanaalexandre nolan(s) [facility] [id number] Social History Type Description Quantity Date Captured Comments Sex Male Smoking Status No Information Chief Complaint And Reason For Visit No Information Reason For Referral Reason For Referral No Information History Of Present Illness Encounter Date Complaint History Of Prese nt Illness No Information Functional Status Date Functional Assessmen t No Information Instructions Date Instruction Additional Infor mation No Information Assessments Type Assessment Date No Information Patient Care Teams Name Effective Dates (start - stop) Status Members No Information
--- OUTSIDE RECORDS SUMMARY | 2024-09-16 15:04 | XMS_ITS | Clinical Summary ---
Author Organization [facility] Address [address] [place] [address] Care Team Providers Care Park Interpreter Name Role Phone Shonda Mcdaniels Primary Care [...] Department Care Team Description 06/20/2024 9:15 AM PRECISION ASSEMBLER BENCH Office Visit [facility] Cardiology [address] [place] [address] Lucas Gutierres MD History of coronary artery [...] on file Legal Sex Male 4:05 PM PRECISION ASSEMBLER BENCH Gender Identity Not on file Sexual Orientation Not on file Obstetrics History Last Filed Vital Signs Vital Sign Reading Time Taken Comments Blood Pressure 100/68 06/20/2024 9:22 AM PRECISION ASSEMBLER BENCH Pulse 69 06/20/2024 9:22 AM PRECISION ASSEMBLER BENCH Temperature - - Respiratory Rate - - Oxygen Saturation 96% 06/20/2024 9:22 AM PRECISION ASSEMBLER BENCH Inhaled Oxygen Concentration - - Weight 88.7 kg (195 lb 8 oz) 06/20/2024 9:22 AM PRECISION ASSEMBLER BENCH Height 180.3 cm (5' 11 ) 06/20/2024 9:22 AM PRECISION ASSEMBLER BENCH Body Mass Index 27.27 06/20/2024 9:22 AM PRECISION ASSEMBLER BENCH Plan of Treatment Health Maintenance Due Date Last Done Comments Colon Cancer Screening-Colonoscopy 1948 Depression Screening 1948 Fall Risk Assessment 1948 Hepatitis B Screening 1966 Lung Cancer Screening 1998 Abdominal Aortic Aneurysm (A AA) Screen 2013 Well Visit 65+ 2013 Covid-19 Vaccine (3 - 2023-2 5 season) 2024 08/12/2020, 07/15/2020 Influenza Vaccine (Season Ended) 2025 02/14/2020, 03/20/2018, 03/19/2017, Additional history exists DTaP/Tdap/Td Vaccine (3 - Td or Tdap) 08/28/2025 08/29/2015, 06/05/2012 Hepatitis C Screening Completed 10/06/2014, 014 Pneumococcal vaccine 65+ Completed 018, 03/19/2017, 02/18/2016 Zoster Vaccine Completed 04/15/2020, 02/14/2020 Insurance UHC MEDICARE ADVANTAGE [facility] MEDICARE ADVANTAGE [facility] MEDICARE ADVANTAGE Care Teams Park Interpreter Relationship Specialty Start Date End Date Shonda Mcdaniels PA PCP - General Physician Clinical Nutrition Manager 09/07/21
--- OUTSIDE RECORDS SUMMARY | 2024-09-16 15:04 | XMS_ITS | Clinical Summary ---
Author Organization [facility] Address [address] [place] [address] Care Team Providers Care Senior Director Of Strategy Name Role Phone Unavailable Primary Care Provider Unavailabl e Immunizations Immunization Administration Dates Next Due MODERNA COVID-19 (12+) [...] ( 1 - Tdap) 12/24/1967 Pneumococcal Vaccine: 50+ Years (2 of 2 - PPSV23 or PCV20) 03/19/2018 03/19/2017, 02/18/2016 RSV Immunization or 60+ Years (1 - 1-dose 75+ series) 12/24/2023 COVID-19 Vaccine (3 - 2023-2 5 season) 2024 08/12/2020, 07/15/2020 Zoster Vaccines Completed 04/15/2020, 02/14/2020 Meningococcal B [...]
--- OUTSIDE RECORDS SUMMARY | 2024-09-16 15:04 | XMS_ITS | Encounter Summary ---
Author Organization [facility] Address [address] [facility] [address] [place] [address] Care Team Providers Care Sales Representative Cash Registers Name Role Phone Luisito Connors MD Primary Care Provider [phone] Luisito Connors MD Primary Care Provider + [phone] Luisito Connors MD Unavailable [phone] Savannah Corral MD Primary Care Provider + [phone] Alex Low Primary Care Provider [phone] Shonda Mcdaniels Primary Care Provid er Encounter Details Date Type Department Care Team (Late st Contact Info) Description 06/30/2016 Orders Only [facility] ProviderGab MD [address] [place] [address] Social History Tobacco Use Types Packs/Day Years Used Date Smoking Tobacco: Never Cigarettes Qu it: 06/05/2010 Alcohol Use Standard Drinks/Week Comments No 0 (1 standard drink = 0.6 oz pur e alcohol) Sex and Gender Information Value Date Recorded Sex Assigned at Not on file 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 Gender Identity Not on file Sexual Orientation [...] on filedocumented in this encounter Care Teams Sales Representative Cash Registers Relationship Specialty Start Date End Date Luisito Connors MD [address] [place] [address] PCP - General 02/10/14 11/15/16 Luisito Connors MD [address] [place] [address] PCP - General 11/16/16 01/03/18 Savannah Corral MD [address] [place] [address] PCP - General Family Practice 01/04/18 06/22/20 Alex Low PA [address] [place] [address] PCP - General Physician Center Consultant 06/23/20 09/06/21 Shonda Mcdaniels PA [address] [place] [address] PCP - General Physician Center Consultant 09/07/21 Luisito Connors MD [address] [place] [address] 11/16/16 06/22/20 documented as of this encounter
--- OUTSIDE RECORDS SUMMARY | 2024-09-16 15:05 | XMS_ITS | Referral Summary ---
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 Gender Identity Not on file Sexual Orientation Not on file Last Filed Vital Signs Vital Sign Reading Time Taken Comments Blood Pressure 100/68 06/20/2024 9:22 AM DECKHAND OYSTER DREDGE Pulse 69 06/20/2024 9:22 AM DECKHAND OYSTER DREDGE Temperature - - Respiratory Rate - - Oxygen Saturation 96% 06/20/2024 9:22 AM DECKHAND OYSTER DREDGE Inhaled Oxygen Concentration - - Weight 88.7 kg (195 lb 8 oz) 06/20/2024 9:22 AM DECKHAND OYSTER DREDGE Height 180.3 cm (5' 11 ) 06/20/2024 9:22 AM DECKHAND OYSTER DREDGE Body Mass Index 27.27 06/20/2024 9:22 AM DECKHAND OYSTER DREDGE Plan of Treatment Not on file Insurance [facility] MEDIC[facility] ADV[facility]AGE [facility] Address: [address] [place], [place] [id number] MEDICARE ADVANTAGE [facility] Address: [address] [place], [place] [phone] MEDICARE ADVANTAGE [facility] Address: [address] [address] [place] [address] Care Teams Physician Scribe Relationship Specialty Start Date End Date Shonda Mcdaniels PA PCP - General Physician Director Electronics 09/07/21
== END 2024-09-16 13:40 | disposition home or self-care (01) ==
PROVIDERS: PCP Family Medicine; Visit Provider Nurse Practitioner Family
DX: Z12.2 Encounter for screening for malignant neoplasm of respiratory organs (principal); Z87.891 Personal history of nicotine dependence
CPT/HCPCS: 71271

== ENCOUNTER 2025-04-18 13:56 | Outpatient (CLI) | payer MEDICARE, SELFPAY ==
--- NOTE | ~2025-04-18 | CT_ITS ---
EXAM/PROCEDURE: CT abdomen pelvis wo/w con HISTORY: gross hematuria COMPARISON: February 11, 2021 TECHNIQUE: IV contrast enhanced CT of the abdomen and pelvis performed. FINDINGS: Minimal atelectatic changes in the lung bases which are otherwise clear. Heart size normal. Trace pericardial effusion. Extensive coronary artery calcification and/or stenting. Within the abdomen and pelvis, the bowel gas pattern is nonobstructive with no free air free fluid or pneumatosis. The lower pelvis is largely obscured due to beam hardening and streak artifact associated with bilateral total hip arthroplasty hardware. The hardware appears grossly intact. Diffuse degenerative changes throughout the lumbar spine. No acute or aggressive bony lesion seen. No grossly inflamed appendix. Aorta normal in size. Gallbladder pancreas spleen stomach and liver as well as adrenal glands appear stable. No hydroureteronephrosis. Visualized portions of the ureters appear normal. 4.5 cm lower pole left renal simple cyst. No suspicious renal masses or obvious ureteral mass is seen. 1.8 cm low-density lesion posterior to the spleen stable. No bulky lymphadenopathy seen. No acute arterial occlusion seen. The stomach is unopacified and nondistended but no obvious acute process seen. Urinary bladder is not well seen. No obvious urinary bladder abnormality identified. IMPRESSION: No discrete lesion or mass seen to explain source of hematuria. The urinary bladder however is poorly evaluated due to extensive artifact associated with bilateral total hip arthroplasty hardware. Other findings as above. Reviewed, dictated and finalized at location A. HANDLER IMPRESSION: No discrete lesion or mass seen to explain source of hematuria. The urinary cornell dder however is poorly evaluated due to extensive artifact associated with bila teral total hip arthroplasty hardware. Other findings as above.
--- NOTE | ~2025-04-18 | XR_ITS ---
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 Technique: 3 view. Findings: Moderate fecal content, no dilated bowel loops No free air. No abnormal calcifications No acute osseous abnormality. Impression: 1. No acute abnormality. Reviewed, dictated and finalized at location P. UCTION SUPERVISOR Impression: 1. No acute abnormality.
[2025-04-18 14:31] LABS: Estimated Glomerular Filt Rate > 60
== END 2025-04-18 13:57 | disposition home or self-care (01) ==
PROVIDERS: PCP Nurse Practitioner; Visit Provider Nurse Practitioner Family
DX: R31.0 Gross hematuria (principal); K58.1 Irritable bowel syndrome with constipation; R10.30 Lower abdominal pain, unspecified; Z96.643 Presence of artificial hip joint, bilateral; I25.810 Atherosclerosis of coronary artery bypass graft(s) without angina pectoris; M47.816 Spondylosis without myelopathy or radiculopathy, lumbar region; N28.1 Cyst of kidney, acquired; D73.89 Other diseases of spleen
CPT/HCPCS: 74018; 74178; Q9967